=== PATIENT | male | born 1935 | race Caucasian/White ===

== ENCOUNTER 2018-01-30 18:11 | Inpatient (IN) | payer MEDICARE, BC ==
[~2018-01-30] VITALS: Ht 172.7 cm; Wt 86.1 kg
[~2018-01-30 18:11] MED LIST: GLYCOPYRROLATE 1 MG/5 ML SYRINGE IV PUSH ONE; LABETALOL HCL 100 MG/20 ML VIAL IV ONE; LACTATED RINGER'S 1000 ML INJ 2,000 ML IV ONE; PHENYLEPH/NS 1000 MCG/10 ML SYR IV ONE; PROPOFOL 200 MG/20 ML AMP IV ONE; ROCURONIUM INJ 50 MG/5 ML SYRINGE IV PUSH ONE; SODIUM CHLOR 0.9% 1000 ML INJ 2,000 ML IV ONE; SUCCINYLCHOLINE CHLORIDE 200 MG/10 ML VIAL IV ONE; ceFAZolin INJ 1,000 MG VIAL IV ONE; ePHEDrine/NS 25 MG/5 ML SYRINGE IV ONE; hydrALAZINE HCL 20 MG/ML VIAL IV ONE
--- NOTE | 2018-01-30 18:42 | MB ---
cc: Steven Baum MD DATE: 01/30/2018 HISTORY OF PRESENT ILLNESS: Julito Ramirez 82-year-old man with a history of hypertension, hypercholesterolemia, atrial fibrillation, chronic renal insufficiency, hypothyroid, CHF, a TIA 7 years ago, who about 4 hours ago had the onset of weakness on the right side and aphasia. He was brought over to [facility] and I got a call from [facility] from the doctor and also from the son. The doctor had read to us that there was a M1 M2 clot on the left. There was a matched deficit on the perfusion. The blood pressure was approximately 160/80. I did talk with Dr. Bryan and several other physicians here in the radiology department about the case, and I also talked to the son and told him that the patient's deficits sounded very severe and this would be a salvage procedure with considering also his INR was 1.8, he could have bleeding and there is a very small chance of any improvement from pulling the clot out. However, the son and family wanted to go with the procedure versus just having the patient go up to a room and not try to have anything done. I discussed this also with the radiologist telecommunications engineer for intervention care at [place]. NEUROLOGIC EXAMINATION: I did examine him in the hallway. He is obviously aphasic. He could just barely say hello. He is severely dysarthric. He could not say goodbye, not follow any commands. His eyes are driven over to the left. Appears to have a right homonymous hemianopsia. He has got a severe right facial droop. He has got increased tone on the right upper extremity, unable to move it. A 0-1/5. Right lower extremity withdrew minimally to Babinski's and the right toes up. The left was equivocal. He moved the left leg somewhat. He is awake. His pupils are equal. IMPRESSION: Left middle cerebral artery infarct. I did notify the son, Julito Ramirez Junior, that this was a salvage procedure and the patient was a high risk to have bleeding from the procedure to pull the clot out, but that is something we could do on a compassionate basis considering his severe deficit and he wanted to go ahead and do that, so he is up in the angio suite now. MD CLAUDIA Rodriguez/ESSENCE , 05:27 PM , 06:40 PM
[2018-01-30] MEDS ORDERED: HEPARIN SODIUM - SQ 10,000 UNITS/ML VIAL ONE ×2 (18:48→19:22)
[2018-01-30] MEDS ORDERED: THROMBIN (TOPICAL) 5,000 UNIT VIAL ONE (18:49)
[2018-01-30] MEDS ORDERED: PROTAMINE SULFATE 50 MG/5 ML VIAL ONE (18:49)
[2018-01-30] MEDS ORDERED: GELFOAM SIZE 100 ONE (18:49)
[2018-01-30] MEDS ORDERED: HEPARIN SODIUM - IV 10,000 UNITS/10 ML VIAL ONE (19:34)
[2018-01-30 19:39] LABS: HEMATOCRIT 29.6 % (39.0-51.0)
[2018-01-30] MEDS ORDERED: IODIXANOL 320 MG/ML 50 ML VIAL (for RAD SPEC) I-ARTERIAL ONE (19:42)
[2018-01-30 19:52] LABS: INTERNATIONAL NORMALIZED RATIO 2.3 RATIO; PROTHROMBIN TIME - PATIENT 23.4 SEC (9.8-11.6)
[2018-01-30 20:02] LABS: BICARBONATE 26.3 MEQ/L (21.0-32.0); CALCIUM 6.9 MG/DL (8.5-10.1); CREATININE 0.8 MG/DL (0.60-1.30)
[2018-01-30 20:22] VITALS: O2SAT 100
[2018-01-30] MEDS ORDERED: MIDAZOLAM HCL 2 MG/2 ML VIAL ONE (20:32)
[2018-01-30] MEDS ORDERED: DO NOT ADM ANY ANTICOAGULANT DRUGS PRN (20:45)
[2018-01-30 20:51] LABS: CALCIUM-PROTEIN CORRECTED 7.9 MG/DL (8.5-10.1); TOTAL PROTEIN 5.1 GM/DL (6.4-8.2)
--- NOTE | 2018-01-30 21:55 | HHI.HP ---
[facility] Service Critical Care Medicine Primary Care Physician No Primary Care Physician Admission Diagnosis Diagnosis: (1) Acute ischemic stroke Diagnosis: Principal (2) Respiratory failure, acute Diagnosis: Secondary (3) Common femoral artery injury Diagnosis: Secondary (4) HTN (hypertension) Diagnosis: Secondary (5) HLD (hyperlipidemia) Diagnosis: Secondary (6) Diabetes mellitus Diagnosis: Secondary (7) Atrial fibrillation Diagnosis: Secondary (8) Warfarin anticoagulation Diagnosis: Secondary (9) Sleep apnea Diagnosis: Secondary (10) CKD (chronic kidney disease) stage 4, GFR 15-29 ml/min Diagnosis: Secondary (11) Hypothyroid (12) Gout Diagnosis: Secondary (13) Chronic diastolic (congestive) heart failure Diagnosis: Secondary Travel History International Travel<30 Days: No Contact w/Intl Traveler <30 Da: No Traveled to Known Affected Are: No History of Present Illness 82-year-old gentleman with past medical history of chronic atrial fibrillation on anticoagulation with warfarin, hypertension, hyperlipidemia, prior TIA who was transferred from [facility] due to acute stroke. His had spoken with him around 12:30 on 01/29. When she returned home at 1:30 he was having difficulty speaking and right hemiplegia. He presented to [facility] with right facial droop, right hemiplegia, leftward gaze, nonverbal. CT brain demonstrated hyperdense left M1 and M2 segments. He was not a candidate for systemic TPA due to INR of 1.8 at outside hospital. CTA demonstrated thromboembolism of M1 and M2 segments. CT perfusion demonstrated large acute left MCA infarct without surrounding ischemic penumbra. Consultation was made with neurology at [facility] who recommended medical management. Family requested aggressive therapy and case was discussed with Dr. Baum and neuroradiology and patient was transferred to [facility] where he underwent thrombectomy by Dr. Shelby as family was accepting of increased risk of hemorrhage. There was difficulty achieving hemostasis at R groin site so he was taken emergently to OR where he underwent repair of R femoral artery by Dr. Ayala. He was intubated in specials by Dr. Ames. Intraoperatively he received 800 crystalloid, EBL 450 mL, UOP was 700. Dr. Ayala discussed with Dr. Baum postoperatively and [facility] has been called for admission. Patient remains intubated. Family indicates he made some initial improvement between the onset of symptoms and leaving the outside hospital, able to produce some garbled speech and say "I love you". They also state that slight movement of right side is an improvement. Daughter states INR Was recently subtherapeutic at 1.4 on 01/22. Review of Systems ROS Limitations: Intubated Past Family Social History Allergies: Coded Allergies: allopurinol (Verified Allergy, Severe, Irritation, 01/31/18) SKIN IRRITATION AND SLOUGHING. Past Medical History Hypertension Hyperlipidemia Chronic CHF with reportedly preserved EF Hypothyroidism Chronic atrial fibrillation Chronic kidney disease (Stage IV per daughter) Sensoroneural hearing loss TIA in 2009 Small traumatic R Pneumothorax 2011, treated without chest tube Sleep apnea uses CPAP at home Restless leg syndrome (Dr. 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 Family History Dad had a stroke in his mid to late 80s and a couple years later Mother had hypertension and old age Social History He previously smoked cigars in his 20s and 30s but has not smoked since then. He is to drink glasses of wine occasionally but nothing to drink in the last year due to issues with gout No illicit drug use His mobility is impaired at times due to gallops and he will sometimes uses a walker, cane, E walk unassisted He started physical therapy yesterday Physical Exam Vital Signs Vital Signs Date Time Temp Pulse Resp B/P (MAP) Pulse Ox O2 Delivery O2 Flow Rate FiO2 01/30/18 20:18 96.3 64 10 130/60 (83) 100 Ambu Bag 50 Mechanical Ventilator Physical Exam GENERAL: Well-nourished, well-developed patient who is orotracheally intubated. He is evaluated in PACU. He is not on any continuous sedation. SKIN: Warm and dry. VASC: L radial art line in place with distal perfusion intact. Dressing in place right groin with some mild groin edema but no palpable hematoma. DESHAWN drain in place with dark tenderness output. HEAD: Atraumatic. Normocephalic. EYES: Pupils equal and round with pupils 6 mm and sluggishly reactive to 5 mm bilaterally.. No scleral icterus. No injection or drainage. ENT: No nasal bleeding or discharge. Mucous membranes pink and moist. Orotracheally intubated with 70 endotracheal tube. NECK: Trachea midline. No JVD. CARDIOVASCULAR: Irregularly irregular with rate in the 70s, A. fib on the monitor. No murmurs rubs or gallops. RESPIRATORY: Orotracheally intubated. CTAB. GASTROINTESTINAL: Abdomen soft, non-tender, nondistended. Bowel sounds present. MUSCULOSKELETAL: Extremities without clubbing, cyanosis. NEUROLOGICAL: Awake, eyes open, L gaze preference. Squeezes with L hand but does not release to command or perform "thumbs up". Spontaneously moving LLE with at least 3/5 strength. RUE with weak withdrawal to noxious stimuli. Strength 2/5 RLE. Babinski upgoing on the right. Laboratory Laboratory Tests Test 01/30/18 19:11 01/30/18 19:15 Hemoglobin 10.0 Hematocrit 29.6 Prothrombin Time 23.4 Prothromb Time International Ratio 2.3 Activated Partial Thromboplast Time 47.6 Fibrinogen 242 Blood Urea Nitrogen 22 Creatinine 0.80 Random Glucose 120 Total Protein 5.1 Calcium Level 6.9 Sodium Level 140 Potassium Level 3.3 Chloride Level 105 Carbon Dioxide Level 26.3 Anion Gap 9 Estimat Glomerular Filtration Rate 92 Protein Corrected Calcium 7.9 Blood Gas Puncture Site ART LINE Blood Gas Patient Temperature 98.6 Blood Gas HCO3 25 Blood Gas Base Excess 0.1 Blood Gas Oxygen Saturation 98 Arterial Blood pH 7.35 Arterial Blood Partial Pressure CO2 47 Arterial Blood Partial Pressure O2 340 Arterial Blood Oxygen Content 14.8 Arterial Blood Carboxyhemoglobin 0.7 Arterial Blood Methemoglobin 1.1 Blood Gas Hemoglobin 10.1 Oxygen Delivery Device VENTILATOR Blood Gas Ventilator Setting OR SETTING Blood Gas Inspired Oxygen 100 Result Diagram: 01/30/18191001/30/181910 Caprini VTE Risk Assessment Caprini VTE Risk Assessment: Mod/High Risk (score >= 2) VTE Pharm Contraindication: Coagulopathy,INR elevated Caprini Risk Assessment Model Point Value = 1 Point Value = 2 Point Value = 3 Point Value = 5 Age 41-60 Minor surgery BMI > 25 kg/m2 Swollen legs Varicose veins or History of unexplained or recurrent spontaneous Oral contraceptives or hormone replacement Sepsis (< 1 month) Serious lung disease, including pneumonia (< 1 month) Abnormal pulmonary function Acute myocardial infarction Congestive heart failure (< 1 month) History of inflammatory bowel disease Medical patient at bed rest Age 61-74 Arthroscopic surgery Major open surgery (> 45 min) Laparoscopic surgery (> 45 min) Malignancy Confined to bed (> 72 hours) Immobilizing plaster cast Central venous access Age >= 75 History of VTE Family history of VTE Factor V Leiden Prothrombin [id number] Lupus anticoagulant Anticardiolipin antibodies Elevated serum homocysteine Heparin-induced thrombocytopenia Other congenital or acquired thrombophilia Stroke (< 1 month) Elective arthroplasty Hip, pelvis, or leg fracture Acute spinal cord injury (< 1 month) Prophylaxis Regimen Total Risk Factor Score Risk Level Prophylaxis Regimen 0-1 Low Early ambulation 2 Moderate Order ONE of the following: *Sequential Compression Device (SCD) *Heparin 5000 units SQ BID 3-4 Higher Order ONE of the following medications: *Heparin 5000 units SQ TID *Enoxaparin/Lovenox 40 mg SQ daily (WT < 150 kg, CrCl > 30 mL/min) *Enoxaparin/Lovenox 30 mg SQ daily (WT < 150 kg, CrCl > 10-29 mL/min) *Enoxaparin/Lovenox 30 mg SQ BID (WT < 150 kg, CrCl > 30 mL/min) AND/OR *Sequential Compression Device (SCD) 5 or more Highest Order ONE of the following medications: *Heparin 5000 units SQ TID (Preferred with Epidurals) *Enoxaparin/Lovenox 40 mg SQ daily (WT < 150 kg, CrCl > 30 mL/min) *Enoxaparin/Lovenox 30 mg SQ daily (WT < 150 kg, CrCl > 10-29 mL/min) *Enoxaparin/Lovenox 30 mg SQ BID (WT < 150 kg, CrCl > 30 mL/min) AND *Sequential Compression Device (SCD) Assessment and Plan Problem List: (1) Respiratory failure, acute ICD Code: J96.00 - Acute respiratory failure, unspecified whether with hypoxia or hypercapnia Status: Acute (2) Common femoral artery injury ICD Code: S75.009A - Unspecified injury of femoral artery, unspecified leg, initial encounter Status: Acute (3) Acute ischemic stroke ICD Code: I63.9 - Cerebral infarction, unspecified Status: Acute (4) Diabetes mellitus ICD Code: E11.9 - Type 2 diabetes mellitus without complications Status: Chronic (5) HTN (hypertension) ICD Code: I10 - Essential (primary) hypertension (6) HLD (hyperlipidemia) ICD Code: E78.5 - Hyperlipidemia, unspecified (7) Atrial fibrillation ICD Code: I48.91 - Unspecified atrial fibrillation Status: Chronic (8) Warfarin anticoagulation ICD Code: Z79.01 - group home (current) use of anticoagulants Status: Chronic (9) Sleep apnea ICD Code: G47.30 - Sleep apnea, unspecified Status: Chronic (10) CKD (chronic kidney disease) stage 4, GFR 15-29 ml/min ICD Code: N18.4 - Chronic kidney disease, stage 4 (severe) Status: Chronic (11) Gout ICD Code: M10.9 - Gout, unspecified Status: Chronic (12) Hypothyroid ICD Code: E03.9 - Hypothyroidism, unspecified Status: Chronic (13) Chronic diastolic (congestive) heart failure ICD Code: I50.32 - Chronic diastolic (congestive) heart failure Status: Chronic Assessment and Plan NEURO: Acute ischemic stroke, L MCA Sensorineural hearing loss History of TIA in 2009 Not candidate for systemic TPA due to INR 1.8. S/p thrombectomy 01/30/18. Will obtain follow-up imaging. NEurocheck Hemodynamic monitoring Neurology consultation. Dr. Baum to follow. RESP: Acute respiratory failure Sleep apnea on CPAP at home Change to PRVC. Ventilator Bundle. Appears he may be able to protect his airway for trial of extubation but would perform after MRI. CV: Hypertension Hyperlipidemia Chronic atrial fibrillation on chronic anticoagulation with warfarin Chronic heart failure with preserved ejection fraction Hold antihypertensive medications. Right IJ central venous line placed and will use Yg-Synephrine to maintain systolic blood pressure 160-180 to facilitate cerebral perfusion. Dr. Ayala discussed with Dr. Baum who recommended this target. S/p R femoral artery repair 01/30. GI: Insert Orogastric tube and placed a lower intermittent wall suction. Initiate enteral feeds tomorrow if not extubating. FEN/RENAL: Chronic kidney disease stage IV Monitor intake and output via Varela. Monitor electrolytes. Replace as indicated. ID: Monitor for signs and symptoms of infection HEME: On chronic anti-coagulation with warfarin Hold warfarin for now. INR at OSH was 1.8, now 2.3. Eventually will resume but will monitor clinical course and imaging for evidence of hemorrhagic conversion. ENDO: Hypothyroidism Check TSH. Resume synthroid. MSK: Gout Resume appropriate meds. Med rec pending. PROPH: SCDs for DVT prophylaxis. His anticoagulated on warfarin with INR 2.3. Lansoprazole for stress ulcer prophylaxis. ACCESS: Left radial art line placed in OR 01/30/18. Right IJ central venous line placed 01/31/18 #1. Level 3 H and P. Problem Qualifiers (1) HTN (hypertension): Qualified Codes: I10 - Essential (primary) hypertension Eloise Benz MD Jan 30, 2018 21:54
--- NOTE | 2018-01-30 22:46 | MP ---
cc: Anusha Ayala MD DATE OF OPERATION: 01/30/2018 PREOPERATIVE DIAGNOSES: Status post stroke and evacuation of a middle cerebral artery clot, iatrogenic laceration of the left common femoral artery and bleeding. POSTOPERATIVE DIAGNOSES: Status post stroke and evacuation of a middle cerebral artery clot, iatrogenic laceration of the left common femoral artery and bleeding. OPERATIVE PROCEDURE: Preperitoneal approach and isolation of external iliac artery and repair of common femoral artery, evacuation of retroperitoneal hematoma and control of hemorrhage. SURGEON: Anusha Ayala MD ANESTHESIA: General. ESTIMATED BLOOD LOSS: 100 mL intraoperatively and about 400 mL preoperatively. INDICATIONS FOR PROCEDURE: This 82-year-old gentleman underwent interventional radiology procedure and evacuation of the clot of the middle cerebral artery. The patient did well and on closure of a femoral artery the Angio-Seal device misfired and this caused loss of control of the femoral artery. Pressure was held immediately and Dr. Shelby called me to assist. It should be noted that misfire or kinking of the wire with percutaneous closure devices is relatively common occurrence and it is fixable with relatively simple approach. DESCRIPTION OF PROCEDURE: The patient was transferred immediately to the operating room and prepped while holding the pressure onto the vessel. Incision was made in the oblique fashion reaching into the retroperitoneum and external iliac artery is isolated at the level of the inguinal ligament as this crosses over. This is done through a preperitoneal approach. Once this was done, the common femoral artery is isolated more distally with sharp dissection and immediately opening was found. This one is oversewn with some 5-0 Prolene interrupted stitches and this controlled the bleeding. The patient has a fairly large preperitoneal hematoma due to his body habitus and bleeding. This one is evacuated, area washed out. A 10 flat DESHAWN placed and the incision closed in layers with 0 Vicryl and 4-0 Monocryl. The patient tolerated the procedure well. At the end of the procedure patient has excellent distal pulses and will have no long-term ill effects from this episode. Anusha Ayala MD SJ/rt , 10:06 PM , 10:46 PM REBEKAH
[2018-01-30] MEDS: SODIUM CHLOR 0.9% 1000 ML INJ 1,000 ML IV SCH (23:01)
[2018-01-30] MEDS ORDERED: MISCELLANEOUS NURSING INFORMATION XX SCH (23:15)
[2018-01-30] MEDS ORDERED: SENNOSIDES 8.6 MG TAB PO PRN (23:15)
[2018-01-30] MEDS ORDERED: SODIUM CHLORIDE 0.9% FLUSH 10 ML FLUSH IV FLUSH PRN (23:15)
[2018-01-30] MEDS ORDERED: LACTULOSE SYRUP 20 GM/30 ML CUP PO PRN (23:15)
[2018-01-30] MEDS ORDERED: CHLORHEXIDINE GLUCONATE 2 % 1 PACK (2 CLOTHS) TOP PRN (23:15)
[2018-01-30] MEDS ORDERED: MAGNESIUM HYDROXIDE SUSP 30 ML CUP PO PRN (23:15)
[2018-01-30] MEDS ORDERED: BISACODYL 10 MG SUPP RECTAL PRN (23:15)
[2018-01-30] MEDS ORDERED: RESP: ALBUTEROL 2.5 MG/3 ML NEB (PRN) INH (23:15)
[2018-01-30 23:24] VITALS: O2SAT 100
[2018-01-30] MEDS: ONDANSETRON HCL 4 MG/2 ML VIAL IV PUSH PRN (23:34)
[2018-01-31] VITALS (14 sets, daily range): BP systolic 165–176; BP diastolic 50–72; PULSE 53–76; RESP 13–16; TEMP 98.6–99.4; O2SAT 98–100
[2018-01-31] MEDS ORDERED: NOREPINEPHRINE 4 MG/4 ML AMP ONE (00:42)
[2018-01-31] MEDS ORDERED: PHENYLEPHRINE HCL 10 MG/ML VIAL ONE (01:11)
[2018-01-31] MEDS ORDERED: POTASSIUM CHLOR 20 MEQ PREMIX 100 ML IV PRN (01:15)
[2018-01-31] MEDS ORDERED: SODIUM PHOSPHATE INJ 30 MMOL in SODIUM CHLOR 0.9% 250 ML INJ 240 ML IV PRN (01:15)
[2018-01-31] MEDS ORDERED: POTASSIUM CHLORIDE 25 MEQ EFFERVESCENT TAB PO PRN (01:15)
[2018-01-31] MEDS ORDERED: MAGNESIUM OXIDE 400 MG TAB PO PRN (01:15)
[2018-01-31] MEDS ORDERED: MAGNESIUM SULFATE INJ 4 GM in SODIUM CHLORIDE 0.9% INJ 92 ML IV PRN (01:15)
[2018-01-31] MEDS ORDERED: MAGNESIUM SULFATE INJ 2 GM in SODIUM CHLORIDE 0.9% INJ 96 ML IV PRN (01:15)
[2018-01-31] MEDS ORDERED: TERBUTALINE INJ 1 MG/ML AMP SQ PRN (01:15)
[2018-01-31] MEDS ORDERED: POTASSIUM PHOSPHATE MONOBASIC 500 MG TAB PO PRN (01:15)
[2018-01-31] MEDS ORDERED: POTASSIUM PHOSPHATE MONOBASIC 500 MG TAB PO/TUBE PRN (01:15)
[2018-01-31] MEDS ORDERED: POTASSIUM CHLOR 40 MEQ PREMIX 100 ML IV PRN ×2 (01:15)
[2018-01-31] MEDS ORDERED: PHENYLEPHRINE INJ 160 MG in DEXTROSE 5% IN WATE 500 ML INJ 484 ML IV PRN ×4 (01:15→13:00)
[2018-01-31] MEDS ORDERED: POTASSIUM PHOSPHATE INJ 30 MMOL in SODIUM CHLOR 0.9% 250 ML INJ 250 ML IV PRN (01:15)
--- NOTE | 2018-01-31 01:19 | PD.PROCEDR ---
Procedure Note Procedure DATE: 01/31/18 CENTRAL LINE PLACEMENT: Right internal jugular vein. INDICATION: Central venous access CONSENT Informed consent for procedure was obtained from patient's after discussion of risks, benefits, alternatives with her and multiple other family members. DESCRIPTION OF THE PROCEDURE Internal jugular site was chosen as patient is anticoagulated. The patient was placed in supine position, mild Trendelenburg. The skin was cleansed with Chloraprep 3. Additional barrier precautions included large sterile drape, sterile gloves, sterile gown, face mask, and hat. 1 % lidocaine was used for local anesthesia. Under direct ultrasound guidance and on single attempt, the vein was accessed with an introducer needle. The guide wire was advanced and the tract was dilated. Using Seldinger technique a 7 Belarusian 20 cm antimicrobial coated triple-lumen catheter was advanced to a depth of 18 centimeters. The guide wire was removed. All ports had good return of dark venous blood and flushed easily with saline. The central line was secured with Stat-lock. A sterile dressing with antibiotic disc was applied. ESTIMATED BLOOD LOSS: Minimal COMPLICATIONS: No apparent complications. STAT chest x-ray is pending Eloise Benz MD Jan 31, 2018 01:19
--- NOTE | 2018-01-31 02:03 | RADRPT ---
EXAM DATE/TIME: 01/31/2018 02:34 [place] COMPARISON: No previous studies available for comparison. INDICATIONS : Central line palcement MEDICAL HISTORY : None. SURGICAL HISTORY : None. ENCOUNTER: Initial ACUITY: 1 day PAIN SCORE: Non-responsive. LOCATION: Bilateral chest FINDINGS: Single AP view of the chest. Endotracheal tube is in place with the tip 7 cm above the fawn. Nasoga stric tube is in place with the side-port in the stomach. Right IJ central venous catheter is in plac e with the tip at the cavoatrial junction. Cardiac silhouette is mildly enlarged. Confluent opacity a t the right lung base indicating consolidation versus atelectasis. Mild patchy left lung base opacity . Blunting of the left costophrenic sulcus indicating small pleural effusion versus scarring. No evid ence of pneumothorax. CONCLUSION: 1. Endotracheal tube, nasogastric tube, right IJ central venous catheter in place. 2. Right lower lung consolidation versus atelectasis. 3. Patchy atelectasis left lung base. 4. Small left pleural effusion versus scarring. Jorge Beck MD on January 31, 2018 at 1:59 Board Certified Radiologist. This report was verified electronically.
[2018-01-31] MEDS: PHENYLEPHRINE HCL 160 MG/D5W 484 ML ADMIX IV PRN ×2 (02:30)
[2018-01-31] MEDS: POTASSIUM CHLOR 20 MEQ PREMIX 100 ML IV PRN ×2 (02:39→04:39)
[2018-01-31] MEDS: RESP: ALBUTEROL 2.5 MG/IPRATROPIUM 0.5 MG NEB (SCH) INH ×3 (03:41→21:32)
[2018-01-31] MEDS: CHLORHEXIDINE GLUCONATE 2 % 1 PACK (2 CLOTHS) TOP SCH (04:00)
[2018-01-31 08:21] LABS: AUTOMATED NEUTROPHIL # 12.6 TH/MM3 (1.8-7.7); BASOPHIL % 0.1 % (0.0-2.0); HEMATOCRIT 29.4 % (39.0-51.0); HEMOGLOBIN 9.9 GM/DL (13.0-17.0); LYMPH % 2.2 % (9.0-44.0); LYMPHOCYTE # 0.3 TH/MM3 (1.0-4.8); MEAN CELL VOLUME 85.4 FL (80.0-100.0); MEAN CORPUSCULAR HEMOGLOBIN 28.8 PG (27.0-34.0); MEAN CORPUSCULAR HGB CONC 33.7 % (32.0-36.0); MEAN PLATELET VOLUME 7.9 FL (7.0-11.0); MONO % 6.5 % (0.0-8.0); MONOCYTE # 0.9 TH/MM3 (0-0.9); NEUT % 91.2 % (16.0-70.0); PLATELET COUNT 198 TH/MM3 (150-450); RED BLOOD COUNT 3.44 MIL/MM3 (4.50-5.90); RED CELL DISTRIBUTION WIDTH 16.9 % (11.6-17.2); WHITE BLOOD COUNT 13.9 TH/MM3 (4.0-11.0)
[2018-01-31 08:22] LABS: INTERNATIONAL NORMALIZED RATIO 2.2 RATIO; PROTHROMBIN TIME - PATIENT 22.4 SEC (9.8-11.6)
[2018-01-31 08:48] LABS: ALBUMIN 2.5 GM/DL (3.4-5.0); ALT (GPT) 17 U/L (12-78); AST (GOT) 15 U/L (15-37); BICARBONATE 26.6 MEQ/L (21.0-32.0); BLOOD UREA NITROGEN 22 MG/DL (7-18); CALCIUM 7.5 MG/DL (8.5-10.1); CHLORIDE 106 MEQ/L (98-107); CREATININE 1.22 MG/DL (0.60-1.30); GLOMERULAR FILTRATION RATE 57 ML/MIN (>89); GLUCOSE,RANDOM 179 MG/DL (74-106); PHOSPHORUS 1.5 MG/DL (2.5-4.9); SODIUM (NA) 142 MEQ/L (136-145)
[2018-01-31 08:49] LABS: ALKALINE PHOSPHATASE 73 U/L (45-117); TOTAL BILIRUBIN ADULT 0.5 MG/DL (0.2-1.0); TOTAL PROTEIN 5.7 GM/DL (6.4-8.2)
[2018-01-31] MEDS: SODIUM CHLORIDE 0.9% FLUSH 10 ML FLUSH IV FLUSH SCH ×2 (09:00→20:26)
[2018-01-31] MEDS: LANSOPRAZOLE SOLUTAB 30 MG TAB G-TUBE SCH (10:28)
[2018-01-31] MEDS: DOCUSATE SODIUM 50 MG/SENNA 8.6 MG TAB PO SCH ×2 (10:29→20:26)
[2018-01-31] MEDS ORDERED: PROPOFOL 500 MG/50 ML INJ 50 ML ONE (10:47)
[2018-01-31] MEDS: SODIUM CHLOR 0.9% 1000 ML INJ 1,000 ML IV SCH ×2 (10:56→22:51)
--- NOTE | 2018-01-31 11:02 | HHI.CCPN ---
Subjective Remarks/Hospital Course 82-year-old gentleman with past medical history of chronic atrial fibrillation on anticoagulation with warfarin, hypertension, hyperlipidemia, prior TIA who was transferred from [facility] due to acute stroke. His had spoken with him around 12:30 on 01/29. When she returned home at 1:30 he was having difficulty speaking and right hemiplegia. He presented to [facility] with right facial droop, right hemiplegia, leftward gaze, nonverbal. CT brain demonstrated hyperdense left M1 and M2 segments. He was not a candidate for systemic TPA due to INR of 1.8 at outside hospital. CTA demonstrated thromboembolism of M1 and M2 segments. CT perfusion demonstrated large acute left MCA infarct without surrounding ischemic penumbra. Consultation was made with neurology at [facility] who recommended medical management. Family requested aggressive therapy and case was discussed with Dr. Baum and neuroradiology and patient was transferred to [place] where he underwent thrombectomy by Dr. Shelby as family was accepting of increased risk of hemorrhage. There was difficulty achieving hemostasis at R groin site so he was taken emergently to OR where he underwent repair of R femoral artery by Dr. Ayala. He was intubated in specials by Dr. Ames. Intraoperatively he received 800 crystalloid, EBL 450 mL, UOP was 700. Dr. Ayala discussed with Dr. Baum postoperatively and [facility] has been called for admission. Patient remains intubated. 0407: Appears more alert this morning. We will leave intubated because he will require sedation for MRI. Try to extubate after. Objective Vital Signs Date Time Temp Pulse Resp B/P (MAP) Pulse Ox O2 Delivery O2 Flow Rate FiO2 01/31/18 10:49 98 50 01/31/18 07:01 80 20 177/75 (109) Mechanical Ventilator 165/53 (90) 01/31/18 05:00 99.5 Intake and Output 01/31/18 01/31/18 01/31/18 07:59 15:59 23:59 Intake Total 568 ml Output Total 1480 ml Balance -912 ml Result Diagram: 01/31/18 0707 01/31/18 0707 Other Results Laboratory Tests Test 01/30/18 19:15 01/30/18 23:11 Blood Gas Puncture Site ART LINE ART LINE Blood Gas Patient Temperature 98.6 98.6 Blood Gas HCO3 25 mmol/L (22-26) 24 mmol/L (22-26) Blood Gas Base Excess 0.1 mmol/L (-2-2) 0.0 mmol/L (-2-2) Blood Gas Oxygen Saturation 98 % (90-100) 97 % (90-100) Arterial Blood pH 7.35 (7.380-7.420) 7.41 (7.380-7.420) Arterial Blood Partial Pressure CO2 47 mmHg (38-42) 38 mmHg (38-42) Arterial Blood Partial Pressure O2 340 mmHg (61-120) 173 mmHg (61-120) Arterial Blood Oxygen Content 14.8 Vol % (12.0-20.0) 13.9 Vol % (12.0-20.0) Arterial Blood Carboxyhemoglobin 0.7 % (0-4) 0.8 % (0-4) Arterial Blood Methemoglobin 1.1 % (0-2) 1.2 % (0-2) Blood Gas Hemoglobin 10.1 G/DL (12.0-16.0) 9.9 G/DL (12.0-16.0) Oxygen Delivery Device VENTILATOR VENTILATOR Blood Gas Ventilator Setting OR SETTING SEE COMMENT Blood Gas Inspired Oxygen 100 % 50 % Objective Remarks GENERAL: Well-nourished, well-developed patient who is orotracheally intubated. He is evaluated in PACU. He is not on any continuous sedation. SKIN: Warm and dry. VASC: L radial art line in place with distal perfusion intact. Dressing in place right groin with some mild groin edema but no palpable hematoma. DESHAWN drain in place with dark tenderness output. HEAD: Atraumatic. Normocephalic. EYES: Pupils equal and round with pupils 6 mm and sluggishly reactive to 5 mm bilaterally.. No scleral icterus. No injection or drainage. ENT: No nasal bleeding or discharge. Mucous membranes pink and moist. Orotracheally intubated with 70 endotracheal tube. NECK: Trachea midline. No JVD. CARDIOVASCULAR: Irregularly irregular with rate in the 70s, A. fib on the monitor. No murmurs rubs or gallops. RESPIRATORY: Orotracheally intubated. CTAB. GASTROINTESTINAL: Abdomen soft, non-tender, nondistended. Bowel sounds present. MUSCULOSKELETAL: Extremities without clubbing, cyanosis. NEUROLOGICAL: Awake, eyes open. A/P Assessment and Plan NEURO: Acute ischemic stroke Sensorineural hearing loss History of TIA in [address] Baum to follow. MRI now. RESP: Acute respiratory failure Sleep apnea on CPAP at home CV: Hypertension Hyperlipidemia Chronic atrial fibrillation on chronic anticoagulation with warfarin Chronic heart failure with preserved ejection fraction GI: Insert Orogastric tube to lower intermittent wall suction. Initiate enteral feeds in a.m. if not extubating. FEN/RENAL: Chronic kidney disease stage IV Monitor intake and output via Varela. Monitor electrolytes. Replace as indicated. ID: Monitor for signs and symptoms of infection HEME: On chronic anti-coagulation with warfarin ENDO: Hypothyroidism MSK: Gout PROPH: SCDs for DVT prophylaxis. His anticoagulated on warfarin with INR 2.3. ACCESS: Left radial art line placed in OR 01/30/18. Overall impression: Patient has sustained an acute stroke followed shortly by cerebral thrombectomy. He remains critically ill but improved. Unable to wean from ventilator. MRI pending. Critical Care 38 mins Yao Lopez MD Jan 31, 2018 11:02
[2018-01-31] MEDS: PROPOFOL 1000 MG/100 ML INJ 100 ML IV PRN (12:00)
--- NOTE | 2018-01-31 12:20 | RADRPT ---
EXAM DATE/TIME: 01/31/2018 11:29 [facility] COMPARISON: No previous studies available for comparison. INDICATIONS : CVA. MEDICAL HISTORY : Chronic obstructive pulmonary disease. Congestive heart failure. Hypertension. Chronic kidney disease . SURGICAL HISTORY : Thrombectomy ENCOUNTER: Initial ACUITY: 1 day PAIN SCORE: 0/10 LOCATION: cranial TECHNIQUE: Multiplanar, multisequence MRI of the brain was performed without contrast. FINDINGS: CEREBRUM: There are multiple areas of restricted diffusion consistent with acute infarct identified within the left temporal lobe, left external capsule, left caudate, left occipital lobe and left mid and posteri or parietal lobe. These areas involve the barrera matter. There is prominence of the ventricles bilatera lly. There is mild sulcal effacement identified within the left parietal-occipital lobe. No evidence of midline shift. The areas of infarct within the left parietal lobe are associated with multiple are as of focal hypointensity on the gradient echo imaging consistent with hemosiderin. WHITE MATTER: There is periventricular white matter hyper intensity. POSTERIOR FOSSA: The cerebellum and brainstem are intact. The 4th ventricle is midline. The cerebellopontine angle is unremarkable. The cerebellar tonsils are normal in position. DIFFUSION IMAGING: No focal areas of restricted diffusion are seen. No evidence of acute infarction. EXTRACRANIAL: The visualized portions of the orbits and paranasal sinuses are unremarkable. CONCLUSION: Multiple areas of acute infarct as noted above. There is mild sulcal effacement identified in the reg ion of the left parietal occipital region. No evidence of midline shift.. Negra Lobo MD on January 31, 2018 at 12:11 Board Certified Radiologist. This report was verified electronically.
--- NOTE | 2018-01-31 13:26 | HHI.PR ---
Subjective Remarks SP CLOT REMOVAL Objective Vital Signs Date Time Temp Pulse Resp B/P (MAP) Pulse Ox O2 Delivery O2 Flow Rate FiO2 01/31/18 12:31 100 100 01/31/18 10:49 98 50 01/31/18 08:45 100 Mechanical Ventilator 50 01/31/18 07:45 100 100 01/31/18 07:01 80 20 177/75 (109) 100 Mechanical Ventilator 50 165/53 (90) 01/31/18 06:45 69 17 152/69 (96) 100 Mechanical Ventilator 50 153/51 (85) 01/31/18 06:30 66 17 149/65 (93) 100 Mechanical Ventilator 50 150/47 (81) 01/31/18 06:15 75 17 168/72 (104) 100 Mechanical Ventilator 50 150/47 (81) 01/31/18 06:00 70 18 159/70 (99) 100 Mechanical Ventilator 50 168/52 (90) 01/31/18 05:45 76 18 146/67 (93) 100 Mechanical Ventilator 50 161/48 (85) 01/31/18 05:30 67 16 136/65 (88) 100 Mechanical Ventilator 50 148/43 (78) 01/31/18 05:15 63 17 131/59 (83) 100 Mechanical Ventilator 50 140/44 (76) 01/31/18 05:15 63 131/59 01/31/18 05:00 67 155/69 01/31/18 05:00 99.5 67 17 155/69 (97) 100 Mechanical Ventilator 50 160/49 (86) 01/31/18 04:45 83 22 179/76 (110) 100 Mechanical Ventilator 50 180/59 (99) 01/31/18 04:30 69 17 156/68 (97) 100 Mechanical Ventilator 50 162/50 (87) 01/31/18 04:30 69 156/68 01/31/18 04:15 70 17 156/70 (98) 100 Mechanical Ventilator 50 163/70 (101) 01/31/18 04:00 50 01/31/18 04:00 74 16 156/69 (98) 100 Mechanical Ventilator 50 158/78 (104) 01/31/18 03:45 74 17 151/67 (95) 100 Mechanical Ventilator 50 163/52 (89) 01/31/18 03:45 74 151/67 01/31/18 03:33 100 50 01/31/18 03:30 78 16 139/63 (88) 100 Mechanical Ventilator 50 148/51 (83) 01/31/18 03:30 78 139/63 01/31/18 03:15 76 159/70 01/31/18 03:15 76 16 159/70 (99) 100 Mechanical Ventilator 50 144/43 (76) 01/31/18 03:00 74 16 169/75 (106) 100 Mechanical Ventilator 50 169/75 (106) 01/31/18 02:45 81 16 157/73 (101) 100 Mechanical Ventilator 50 154/48 (83) 01/31/18 02:45 81 157/73 01/31/18 02:30 79 158/48 01/31/18 02:30 82 15 186/82 (116) 100 Mechanical Ventilator 50 177/58 (97) 01/31/18 02:15 81 20 182/84 (116) 100 Mechanical Ventilator 50 175/60 (98) 01/31/18 02:00 68 20 147/66 (93) 100 Mechanical Ventilator 50 157/50 (85) 01/31/18 01:45 76 12 158/72 (100) 100 Mechanical Ventilator 50 164/53 (90) 01/31/18 01:30 69 12 153/68 (96) 100 Mechanical Ventilator 50 145/48 (80) 01/31/18 01:15 79 20 150/68 (95) 100 Mechanical Ventilator 50 151/54 (86) 01/31/18 01:11 80 147/67 01/31/18 01:00 84 17 147/67 (93) 100 Mechanical Ventilator 50 137/46 (76) 01/31/18 00:00 50 01/31/18 00:00 70 15 145/66 (92) 100 Mechanical Ventilator 50 147/66 (93) 01/30/18 23:30 75 21 154/69 (97) 100 Mechanical Ventilator 50 163/57 (92) 01/30/18 23:24 100 50 01/30/18 23:00 97.7 01/30/18 23:00 97.7 75 21 168/69 (102) 100 Mechanical Ventilator 50 162/57 (92) 01/30/18 22:30 70 21 163/69 (100) 100 Mechanical Ventilator 50 145/51 (82) 01/30/18 21:45 96.6 62 15 154/49 (84) 100 Mechanical Ventilator 50 01/30/18 21:30 70 20 177/74 (108) 99 Mechanical Ventilator 50 173/58 (96) 01/30/18 21:20 96.3 01/30/18 21:15 69 18 164/70 (101) 100 Mechanical Ventilator 50 168/55 (92) 01/30/18 21:00 77 21 168/76 (106) 100 Mechanical Ventilator 50 185/56 (99) 01/30/18 20:45 65 20 182/72 (108) 100 Mechanical Ventilator 50 172/50 (90) 01/30/18 20:30 73 10 175/81 (112) 100 Mechanical Ventilator 50 181/59 (99) 01/30/18 20:22 100 50 01/30/18 20:20 50 01/30/18 20:18 96.3 64 10 130/60 (83) 100 Ambu Bag 50 Mechanical Ventilator I/O 01/30/18 01/30/18 01/30/18 01/31/18 01/31/18 01/31/18 07:00 15:00 23:00 07:00 15:00 23:00 Intake Total 3800 ml 568 ml Output Total 850 ml 1480 ml Balance 2950 ml -912 ml Intake IV Total 568 ml Other 3800 ml Output Urine Total 700 ml 1200 ml Gastric Drainage Total 250 ml Drainage Total 30 ml Estimated Blood Loss 150 ml Result Diagram: 01/31/18 0707 01/31/18 07 Objective Remarks on vent and some dip awake not following commands pupil= flaccid rue can move the rle some moving left toes equiv bilat to upgoing no rxt threat Assessment and Plan Assessment and Plan imp mod size left mca cva minimal petichial change on mri afib with cva at 1.8 inr i dw son percy and risk of recurrent cva not anticoagulated and risk of bleeding into brain inc on heparin but i feel he is at higher risk of recurrent cva from afib than bleeding into cva he needs to get on coumadin aissatou can he get of vent soon? iv hep started no bolus recheck ct in am Steven Baum MD Jan 31, 2018 13:26
--- NOTE | 2018-01-31 13:59 | RADRPT ---
EXAM DATE/TIME: 01/31/2018 12:03 [facility] COMPARISON: THROMBECTOMY, INTRACRANIAL, January 30, 2018, 16:37. MRI BRAIN W/O CONTRAST, January 31, 2018, 11:29. A NGIOGRAM, CEREBRAL - STROKE, January 30, 2018, 0:00. INDICATIONS : Abnormal prior CT brain. RADIATION DOSE: 47.84 CTDIvol (mGy) MEDICAL HISTORY : Cerebrovascular disease. Cardiovascular disease Hypertension.A-fib SURGICAL HISTORY : None. ENCOUNTER: Initial ACUITY: 1 day PAIN SCALE: Non-responsive LOCATION: cranial TECHNIQUE: Multiple contiguous axial images were obtained of the head. Using automated exposure control and adj ustment of the mA and/or kV according to patient size, radiation dose was kept as low as reasonably a chievable to obtain optimal diagnostic quality images. DICOM format image data is available electro nically for review and comparison. FINDINGS: CEREBRUM: Focal hypodensities consistent with acute infarcts are identified in the left cerebral hemisphere. Th oleksandr are predominantly located within the left parietal lobe. There is no evidence of acute hemorrhage however MRI did demonstrate some mild petechial punctate hemorrhages along the cortical surface. Donovan tricles are mildly enlarged POSTERIOR FOSSA: The cerebellum and brainstem are intact. The 4th ventricle is midline. The cerebellopontine angle i s unremarkable. EXTRACRANIAL: The visualized portion of the orbits is intact. SKULL: The calvaria is intact. No evidence of skull fracture. CONCLUSION: 1. Acute left cerebral infarcts with petechial hemorrhage identified on MRI 2. Mild ventriculomegaly 3. No other acute findings. Alex Bryan MD on January 31, 2018 at 13:49 Board Certified Radiologist. This report was verified electronically.
[2018-01-31] MEDS: HEPARIN-D5W 25,000 U/250 ML 250 ML IV PRN (14:02)
--- NOTE | 2018-01-31 15:10 | PD.CAR.PN ---
CVT Progress Note Subjective/Hospital Course: 01/31/2018 Status post repair of the right femoral artery Incision clean and dry Excellent distal pulses DESHAWN drainage decreased and minimal at this time Patient can be heparinized and anticoagulated in any safely from vascular point Objective: Vital Signs Date Time Temp Pulse Resp B/P (MAP) Pulse Ox O2 Delivery O2 Flow Rate FiO2 01/31/18 14:00 53 01/31/18 12:31 100 100 01/31/18 12:00 99.1 58 15 165/70 (101) 100 01/31/18 12:00 50 01/31/18 12:00 58 01/31/18 10:49 98 50 01/31/18 10:00 60 01/31/18 08:45 100 Mechanical Ventilator 50 01/31/18 08:45 69 01/31/18 08:45 76 168/50 01/31/18 08:45 99.4 76 15 175/72 (106) 100 168/50 (89) 01/31/18 08:00 50 01/31/18 07:45 100 100 01/31/18 07:01 80 20 177/75 (109) 100 Mechanical Ventilator 50 165/53 (90) 01/31/18 06:45 69 17 152/69 (96) 100 Mechanical Ventilator 50 153/51 (85) 01/31/18 06:30 66 17 149/65 (93) 100 Mechanical Ventilator 50 150/47 (81) 01/31/18 06:15 75 17 168/72 (104) 100 Mechanical Ventilator 50 150/47 (81) 01/31/18 06:00 70 18 159/70 (99) 100 Mechanical Ventilator 50 168/52 (90) 01/31/18 05:45 76 18 146/67 (93) 100 Mechanical Ventilator 50 161/48 (85) 01/31/18 05:30 67 16 136/65 (88) 100 Mechanical Ventilator 50 148/43 (78) 01/31/18 05:15 63 17 131/59 (83) 100 Mechanical Ventilator 50 140/44 (76) 01/31/18 05:15 63 131/59 01/31/18 05:00 67 155/69 01/31/18 05:00 99.5 67 17 155/69 (97) 100 Mechanical Ventilator 50 160/49 (86) 01/31/18 04:45 83 22 179/76 (110) 100 Mechanical Ventilator 50 180/59 (99) 01/31/18 04:30 69 17 156/68 (97) 100 Mechanical Ventilator 50 162/50 (87) 01/31/18 04:30 69 156/68 01/31/18 04:15 70 17 156/70 (98) 100 Mechanical Ventilator 50 163/70 (101) 01/31/18 04:00 50 01/31/18 04:00 74 16 156/69 (98) 100 Mechanical Ventilator 50 158/78 (104) 01/31/18 03:45 74 17 151/67 (95) 100 Mechanical Ventilator 50 163/52 (89) 01/31/18 03:45 74 151/67 01/31/18 03:33 100 50 01/31/18 03:30 78 16 139/63 (88) 100 Mechanical Ventilator 50 148/51 (83) 01/31/18 03:30 78 139/63 01/31/18 03:15 76 159/70 01/31/18 03:15 76 16 159/70 (99) 100 Mechanical Ventilator 50 144/43 (76) 01/31/18 03:00 74 16 169/75 (106) 100 Mechanical Ventilator 50 169/75 (106) 01/31/18 02:45 81 16 157/73 (101) 100 Mechanical Ventilator 50 154/48 (83) 01/31/18 02:45 81 157/73 01/31/18 02:30 79 158/48 01/31/18 02:30 82 15 186/82 (116) 100 Mechanical Ventilator 50 177/58 (97) 01/31/18 02:15 81 20 182/84 (116) 100 Mechanical Ventilator 50 175/60 (98) 01/31/18 02:00 68 20 147/66 (93) 100 Mechanical Ventilator 50 157/50 (85) 01/31/18 01:45 76 12 158/72 (100) 100 Mechanical Ventilator 50 164/53 (90) 01/31/18 01:30 69 12 153/68 (96) 100 Mechanical Ventilator 50 145/48 (80) 01/31/18 01:15 79 20 150/68 (95) 100 Mechanical Ventilator 50 151/54 (86) 01/31/18 01:11 80 147/67 01/31/18 01:00 84 17 147/67 (93) 100 Mechanical Ventilator 50 137/46 (76) 01/31/18 00:00 50 01/31/18 00:00 70 15 145/66 (92) 100 Mechanical Ventilator 50 147/66 (93) 01/30/18 23:30 75 21 154/69 (97) 100 Mechanical Ventilator 50 163/57 (92) 01/30/18 23:24 100 50 01/30/18 23:00 97.7 01/30/18 23:00 97.7 75 21 168/69 (102) 100 Mechanical Ventilator 50 162/57 (92) 01/30/18 22:30 70 21 163/69 (100) 100 Mechanical Ventilator 50 145/51 (82) 01/30/18 21:45 96.6 62 15 154/49 (84) 100 Mechanical Ventilator 50 01/30/18 21:30 70 20 177/74 (108) 99 Mechanical Ventilator 50 173/58 (96) 01/30/18 21:20 96.3 01/30/18 21:15 69 18 164/70 (101) 100 Mechanical Ventilator 50 168/55 (92) 01/30/18 21:00 77 21 168/76 (106) 100 Mechanical Ventilator 50 185/56 (99) 01/30/18 20:45 65 20 182/72 (108) 100 Mechanical Ventilator 50 172/50 (90) 01/30/18 20:30 73 10 175/81 (112) 100 Mechanical Ventilator 50 181/59 (99) 01/30/18 20:22 100 50 01/30/18 20:20 50 01/30/18 20:18 96.3 64 10 130/60 (83) 100 Ambu Bag 50 Mechanical Ventilator Labs: Laboratory Tests Test 01/31/18 07:07 01/31/18 08:30 White Blood Count 13.9 TH/MM3 (4.0-11.0) Red Blood Count 3.44 MIL/MM3 (4.50-5.90) Hemoglobin 9.9 GM/DL (13.0-17.0) Hematocrit 29.4 % (39.0-51.0) Mean Corpuscular Volume 85.4 FL (80.0-100.0) Mean Corpuscular Hemoglobin 28.8 PG (27.0-34.0) Mean Corpuscular Hemoglobin Concent 33.7 % (32.0-36.0) Red Cell Distribution Width 16.9 % (11.6-17.2) Platelet Count 198 TH/MM3 (150-450) Mean Platelet Volume 7.9 FL (7.0-11.0) Neutrophils (%) (Auto) 91.2 % (16.0-70.0) Lymphocytes (%) (Auto) 2.2 % (9.0-44.0) Monocytes (%) (Auto) 6.5 % (0.0-8.0) Eosinophils (%) (Auto) 0.0 % (0.0-4.0) Basophils (%) (Auto) 0.1 % (0.0-2.0) Neutrophils # (Auto) 12.6 TH/MM3 (1.8-7.7) Lymphocytes # (Auto) 0.3 TH/MM3 (1.0-4.8) Monocytes # (Auto) 0.9 TH/MM3 (0-0.9) Eosinophils # (Auto) 0.0 TH/MM3 (0-0.4) Basophils # (Auto) 0.0 TH/MM3 (0-0.2) CBC Comment DIFF FINAL Differential Comment Prothrombin Time 22.4 SEC (9.8-11.6) Prothromb Time International Ratio 2.2 RATIO Blood Urea Nitrogen 22 MG/DL (7-18) Creatinine 1.22 MG/DL (0.60-1.30) Random Glucose 179 MG/DL (74-106) Total Protein 5.7 GM/DL (6.4-8.2) Albumin 2.5 GM/DL (3.4-5.0) Calcium Level 7.5 MG/DL (8.5-10.1) Phosphorus Level 1.5 MG/DL (2.5-4.9) Magnesium Level 2.0 MG/DL (1.5-2.5) Alkaline Phosphatase 73 U/L (45-117) Aspartate Amino Transf (AST/SGOT) 15 U/L (15-37) Alanine Aminotransferase (ALT/SGPT) 17 U/L (12-78) Total Bilirubin 0.5 MG/DL (0.2-1.0) Sodium Level 142 MEQ/L (136-145) Potassium Level 3.8 MEQ/L (3.5-5.1) Chloride Level 106 MEQ/L (98-107) Carbon Dioxide Level 26.6 MEQ/L (21.0-32.0) Anion Gap 9 MEQ/L (5-15) Estimat Glomerular Filtration Rate 57 ML/MIN (>89) Thyroid Stimulating Hormone 3rd Gen 1.290 uIU/ML (0.358-3.740) Nasal Screen MRSA (PCR) MRSA NOT DETECTED (NOT Result Diagram: 01/31/18 0707 01/31/18 0707 Anusha Ayala MD Jan 31, 2018 15:10
[2018-01-31 15:17] LABS: HEMATOCRIT 27.4 % (39.0-51.0); HEMOGLOBIN 9.2 GM/DL (13.0-17.0); MEAN CELL VOLUME 85.9 FL (80.0-100.0); MEAN CORPUSCULAR HEMOGLOBIN 28.8 PG (27.0-34.0); MEAN CORPUSCULAR HGB CONC 33.6 % (32.0-36.0); MEAN PLATELET VOLUME 7.9 FL (7.0-11.0); PLATELET COUNT 185 TH/MM3 (150-450); RED BLOOD COUNT 3.19 MIL/MM3 (4.50-5.90); WHITE BLOOD COUNT 12.9 TH/MM3 (4.0-11.0)
[2018-01-31 15:44] LABS: INTERNATIONAL NORMALIZED RATIO 2.9 RATIO; PROTHROMBIN TIME - PATIENT 28.8 SEC (9.8-11.6)
[2018-01-31 16:12] LABS: TROPONIN I 0.1 NG/ML (0.02-0.05)
[2018-01-31] MEDS ORDERED: METO5TAB3 PO (18:42)
[2018-01-31] MEDS ORDERED: CHOL5000 PO (18:42)
[2018-01-31] MEDS ORDERED: MEDR4PAK PO (18:42)
[2018-01-31] MEDS ORDERED: COLC1CAP3 PO (18:42)
[2018-01-31] MEDS ORDERED: CITA20TA4 PO (18:42)
[2018-01-31] MEDS ORDERED: MELA5 PO (18:42)
[2018-01-31] MEDS ORDERED: ATOR40TA16 PO (18:42)
[2018-01-31] MEDS ORDERED: LEVO75TA3 PO (18:42)
[2018-01-31] MEDS ORDERED: CLON0.1T PO (18:42)
[2018-01-31] MEDS ORDERED: CHLOR50 PO (18:42)
[2018-01-31] MEDS ORDERED: VITACAP7 PO (18:42)
[2018-01-31] MEDS ORDERED: DOXA1TAB35 PO (18:42)
[2018-01-31] MEDS ORDERED: WARF-23 PO (18:42)
[2018-01-31] MEDS ORDERED: ULOR40TA (18:42)
[2018-01-31] MEDS ORDERED: VALS1TAB65 PO (18:42)
[2018-01-31] MEDS ORDERED: SPIRCAP INH (18:42)
[2018-01-31] MEDS ORDERED: DUTA1CAP2 PO (18:42)
[2018-01-31] MEDS ORDERED: VENTAER INH (18:42)
[2018-01-31] MEDS: ONDANSETRON HCL 4 MG/2 ML VIAL IV PUSH PRN (20:26)
[2018-02-01] VITALS (19 sets, daily range): BP systolic 156–178; BP diastolic 44–71; PULSE 48–116; RESP 13–56; TEMP 97.9–100; O2SAT 100
[2018-02-01] MEDS: CHLORHEXIDINE GLUCONATE 2 % 1 PACK (2 CLOTHS) TOP SCH (02:19)
[2018-02-01] MEDS: PROPOFOL 1000 MG/100 ML INJ 100 ML IV PRN ×2 (02:41→08:21)
[2018-02-01] MEDS: RESP: ALBUTEROL 2.5 MG/IPRATROPIUM 0.5 MG NEB (SCH) INH ×4 (03:07→20:55)
[2018-02-01 04:39] LABS: INTERNATIONAL NORMALIZED RATIO 2.6 RATIO; PROTHROMBIN TIME - PATIENT 25.9 SEC (9.8-11.6)
[2018-02-01 04:55] LABS: BICARBONATE 28.3 MEQ/L (21.0-32.0); CALCIUM 7.3 MG/DL (8.5-10.1); CREATININE 0.9 MG/DL (0.60-1.30)
--- NOTE | 2018-02-01 05:01 | RADRPT ---
EXAM DATE/TIME: 02/01/2018 04:41 [facility] COMPARISON: MRI BRAIN W/O CONTRAST, January 31, 2018, 11:29. CT BRAIN W/O CONTRAST, January 31, 2018, 12:03. INDICATIONS : Follow up stroke. RADIATION DOSE: 48.92 CTDIvol (mGy) MEDICAL HISTORY : Cardiovascular disease. Cerebrovascular disease. Hypertension. SURGICAL HISTORY : None. ENCOUNTER: Subsequent ACUITY: 1 day PAIN SCALE: Non-responsive LOCATION: cranial TECHNIQUE: Multiple contiguous axial images were obtained of the head. Using automated exposure control and adj ustment of the mA and/or kV according to patient size, radiation dose was kept as low as reasonably a chievable to obtain optimal diagnostic quality images. DICOM format image data is available electro nically for review and comparison. FINDINGS: CEREBRUM: Evolving infarcts are seen in the left parietal lobe. No evidence of mass effect or midline shift. Ve ntricles within normal limits. No acute intracranial hemorrhage or extra-axial fluid collection. No i ntercranial mass lesion. POSTERIOR FOSSA: The cerebellum and brainstem are intact. The 4th ventricle is midline. The cerebellopontine angle i s unremarkable. EXTRACRANIAL: The visualized portion of the orbits is intact. SKULL: The calvaria is intact. No evidence of skull fracture. CONCLUSION: Evolving left-sided parietal lobe infarcts. No evidence of intracranial hemorrhage. Jorge Beck MD on February 01, 2018 at 4:57 Board Certified Radiologist. This report was verified electronically.
[2018-02-01 05:03] LABS: HEMATOCRIT 25.3 % (39.0-51.0); HEMOGLOBIN 8.5 GM/DL (13.0-17.0); MEAN CELL VOLUME 84.7 FL (80.0-100.0); MEAN CORPUSCULAR HEMOGLOBIN 28.5 PG (27.0-34.0); MEAN CORPUSCULAR HGB CONC 33.6 % (32.0-36.0); MEAN PLATELET VOLUME 7.7 FL (7.0-11.0); PLATELET COUNT 169 TH/MM3 (150-450); RED BLOOD COUNT 2.99 MIL/MM3 (4.50-5.90); WHITE BLOOD COUNT 11.1 TH/MM3 (4.0-11.0)
[2018-02-01 05:12] LABS: CALCIUM-PROTEIN CORRECTED 8.3 MG/DL (8.5-10.1); TOTAL PROTEIN 5.2 GM/DL (6.4-8.2)
[2018-02-01] MEDS: PHENYLEPHRINE HCL 160 MG/D5W 484 ML ADMIX IV PRN ×2 (05:28)
[2018-02-01] MEDS: POTASSIUM CHLOR 20 MEQ PREMIX 100 ML IV PRN (06:49)
[2018-02-01] MEDS: SODIUM CHLORIDE 0.9% IV SCH ×2 (08:21→10:27)
[2018-02-01] MEDS: POTASSIUM CHLORIDE IV SCH ×2 (08:21→10:27)
--- NOTE | 2018-02-01 08:21 | EKG ---
Date Performed: 01/31/2018 Time Performed: 00:31:45 PTAGE: 82 years EKG: ATRIAL FIBRILLATION VOLTAGE CRITERIA FOR LVH NONSPECIFIC ST & T-WAVE ABNORMALITY ABNORMAL E CG NO PREVIOUS TRACING DOCTOR: Lexa Puentes Interpretating Date/Time 02/01/2018 08:19:46
[2018-02-01] MEDS: LANSOPRAZOLE SOLUTAB 30 MG TAB G-TUBE SCH (08:26)
[2018-02-01] MEDS: SODIUM CHLORIDE 0.9% FLUSH 10 ML FLUSH IV FLUSH SCH ×2 (08:26→21:13)
[2018-02-01] MEDS: DOCUSATE SODIUM 50 MG/SENNA 8.6 MG TAB PO SCH ×2 (08:27→20:25)
--- NOTE | 2018-02-01 11:18 | PD.CAR.PN ---
CVT Progress Note Subjective/Hospital Course: 01/31/2018 Status post repair of the right femoral artery Incision clean and dry Excellent distal pulses DESHAWN drainage decreased and minimal at this time Patient can be heparinized and anticoagulated in any safely from vascular point 02/01/2018 Patient doing okay from vascular point Groin incision clean and dry Dressing change daily Excellent distal pulses Patient can be safely anticoagulated from my point as above noted Nothing to add to care Objective: Vital Signs Date Time Temp Pulse Resp B/P (MAP) Pulse Ox O2 Delivery O2 Flow Rate FiO2 02/01/18 10:00 57 02/01/18 09:25 100 40 02/01/18 09:25 40 02/01/18 08:17 100 50 02/01/18 08:00 98.2 50 13 164/44 (84) 100 02/01/18 08:00 50 02/01/18 08:00 48 02/01/18 07:00 100 Mechanical Ventilator 50 02/01/18 06:00 58 02/01/18 05:56 49 166/58 02/01/18 05:28 57 158/51 02/01/18 04:40 100 50 02/01/18 04:25 100 100 02/01/18 04:00 50 02/01/18 04:00 100.0 116 56 159/51 (87) 100 02/01/18 04:00 56 02/01/18 03:25 62 134/44 02/01/18 02:45 51 198/66 02/01/18 02:41 50 192/62 02/01/18 02:16 48 190/60 02/01/18 02:08 50 134/49 02/01/18 02:00 55 02/01/18 01:25 100 50 02/01/18 00:00 59 02/01/18 00:00 50 02/01/18 00:00 99.0 59 13 156/71 (99) 100 156/71 (99) 01/31/18 22:00 53 01/31/18 20:30 100 50 01/31/18 20:00 50 01/31/18 20:00 58 01/31/18 20:00 98.6 54 13 168/51 (90) 100 168/51 (90) 01/31/18 19:00 100 Mechanical Ventilator 50 01/31/18 18:30 53 182/48 01/31/18 18:00 58 01/31/18 18:00 54 186/51 01/31/18 17:00 58 190/54 01/31/18 16:45 58 184/54 01/31/18 16:00 98.6 62 16 176/54 (94) 100 01/31/18 16:00 62 01/31/18 16:00 50 01/31/18 15:56 100 50 01/31/18 14:00 53 01/31/18 12:31 100 100 01/31/18 12:00 99.1 58 15 165/70 (101) 100 01/31/18 12:00 50 01/31/18 12:00 58 Labs: Laboratory Tests Test 02/01/18 01:58 02/01/18 04:15 02/01/18 07:30 Activated Partial Thromboplast Time 107.4 SEC (24.3-30.1) 81.5 SEC (24.3-30.1) 47.3 SEC (24.3-30.1) White Blood Count 11.1 TH/MM3 (4.0-11.0) Red Blood Count 2.99 MIL/MM3 (4.50-5.90) Hemoglobin 8.5 GM/DL (13.0-17.0) Hematocrit 25.3 % (39.0-51.0) Mean Corpuscular Volume 84.7 FL (80.0-100.0) Mean Corpuscular Hemoglobin 28.5 PG (27.0-34.0) Mean Corpuscular Hemoglobin Concent 33.6 % (32.0-36.0) Red Cell Distribution Width 17.0 % (11.6-17.2) Platelet Count 169 TH/MM3 (150-450) Mean Platelet Volume 7.7 FL (7.0-11.0) Prothrombin Time 25.9 SEC (9.8-11.6) Prothromb Time International Ratio 2.6 RATIO Blood Urea Nitrogen 19 MG/DL (7-18) Creatinine 0.90 MG/DL (0.60-1.30) Random Glucose 97 MG/DL (74-106) Total Protein 5.2 GM/DL (6.4-8.2) Calcium Level 7.3 MG/DL (8.5-10.1) Sodium Level 145 MEQ/L (136-145) Potassium Level 3.2 MEQ/L (3.5-5.1) Chloride Level 109 MEQ/L (98-107) Carbon Dioxide Level 28.3 MEQ/L (21.0-32.0) Anion Gap 8 MEQ/L (5-15) Estimat Glomerular Filtration Rate 80 ML/MIN (>89) Protein Corrected Calcium 8.3 MG/DL (8.5-10.1) Result Diagram: 02/01/18 0415 02/01/18 0415 Anusha Ayala MD Feb 01, 2018 11:18
--- NOTE | 2018-02-01 12:02 | HHI.PR ---
Subjective Remarks SP CLOT REMOVAL Objective Vital Signs Date Time Temp Pulse Resp B/P (MAP) Pulse Ox O2 Delivery O2 Flow Rate FiO2 02/01/18 10:00 57 02/01/18 09:25 100 40 02/01/18 09:25 40 02/01/18 08:17 100 50 02/01/18 08:00 98.2 50 13 164/44 (84) 100 02/01/18 08:00 50 02/01/18 08:00 48 02/01/18 07:00 100 Mechanical Ventilator 50 02/01/18 06:00 58 02/01/18 05:56 49 166/58 02/01/18 05:28 57 158/51 02/01/18 04:40 100 50 02/01/18 04:25 100 100 02/01/18 04:00 50 02/01/18 04:00 100.0 116 56 159/51 (87) 100 02/01/18 04:00 56 02/01/18 03:25 62 134/44 02/01/18 02:45 51 198/66 02/01/18 02:41 50 192/62 02/01/18 02:16 48 190/60 02/01/18 02:08 50 134/49 02/01/18 02:00 55 02/01/18 01:25 100 50 02/01/18 00:00 59 02/01/18 00:00 50 02/01/18 00:00 99.0 59 13 156/71 (99) 100 156/71 (99) 01/31/18 22:00 53 01/31/18 20:30 100 50 01/31/18 20:00 50 01/31/18 20:00 58 01/31/18 20:00 98.6 54 13 168/51 (90) 100 168/51 (90) 01/31/18 19:00 100 Mechanical Ventilator 50 01/31/18 18:30 53 182/48 01/31/18 18:00 58 01/31/18 18:00 54 186/51 01/31/18 17:00 58 190/54 01/31/18 16:45 58 184/54 01/31/18 16:00 98.6 62 16 176/54 (94) 100 01/31/18 16:00 62 01/31/18 16:00 50 01/31/18 15:56 100 50 01/31/18 14:00 53 01/31/18 12:31 100 100 01/31/18 12:00 99.1 58 15 165/70 (101) 100 01/31/18 12:00 50 01/31/18 12:00 58 I/O 01/31/18 01/31/18 01/31/18 02/01/18 02/01/18 02/01/18 07:00 15:00 23:00 07:00 15:00 23:00 Intake Total 568 ml 585 ml 30 ml 879 ml 220 ml Output Total 1480 ml 605 ml 680 ml Balance -912 ml 585 ml -575 ml 199 ml 220 ml Intake IV Total 568 ml 585 ml 879 ml 220 ml Tube Irrigant 30 ml Output Urine Total 1200 ml 500 ml 450 ml Gastric Drainage Total 250 ml 100 ml 200 ml Drainage Total 30 ml 5 ml 30 ml # Bowel Movements 0 0 Result Diagram: 02/01/18 0415 02/01/18 0415 Objective Remarks on vent and some dip awake not following commands pupil= flaccid rue can move the rle some moving left toes equiv bilat to upgoing no rxt threat on r does to left about same as yest Assessment and Plan Assessment and Plan imp mod size left mca cva minimal petichial change on mri afib with cva at 1.8 inr i dw son percy and risk of recurrent cva not anticoagulated and risk of bleeding into brain inc on heparin but i feel he is at higher risk of recurrent cva from afib than bleeding into cva he needs to get on coumadin aissatou can he get of vent soon? iv hep started no bolus recheck ct in am 02/01/18 ct no major change no blood hb down a little on iv hep coumadin when able off vent when able stable neuro Steven Baum MD Feb 01, 2018 12:02
[2018-02-01] MEDS: SODIUM CHLOR 0.9% 1000 ML INJ 1,000 ML IV SCH (13:50)
--- NOTE | 2018-02-01 16:07 | HHI.CCPN ---
Subjective Remarks/Hospital Course 82-year-old gentleman with past medical history of chronic atrial fibrillation on anticoagulation with warfarin, hypertension, hyperlipidemia, prior TIA who was transferred from [facility] due to acute stroke. His had spoken with him around 12:30 on 01/29. When she returned home at 1:30 he was having difficulty speaking and right hemiplegia. He presented to [facility] with right facial droop, right hemiplegia, leftward gaze, nonverbal. CT brain demonstrated hyperdense left M1 and M2 segments. He was not a candidate for systemic TPA due to INR of 1.8 at outside hospital. CTA demonstrated thromboembolism of M1 and M2 segments. CT perfusion demonstrated large acute left MCA infarct without surrounding ischemic penumbra. Consultation was made with neurology at [facility] who recommended medical management. Family requested aggressive therapy and case was discussed with Dr. Baum and neuroradiology and patient was transferred to [place] where he underwent thrombectomy by Dr. Shelby as family was accepting of increased risk of hemorrhage. There was difficulty achieving hemostasis at R groin site so he was taken emergently to [place] where he underwent repair of R femoral artery by Dr. Ayala. He was intubated in specials by Dr. Ames. Intraoperatively he received 800 crystalloid, EBL 450 mL, UOP was 700. Dr. Ayala discussed with Dr. Baum postoperatively and [facility] has been called for admission. Patient remains intubated. 01/31: Appears more alert this morning. We will leave intubated because he will require sedation for MRI. Try to extubate after. 02/01: MRI completed, will start weaning trials. Objective Vital Signs Date Time Temp Pulse Resp B/P (MAP) Pulse Ox O2 Delivery O2 Flow Rate FiO2 02/01/18 15:33 100 40 02/01/18 14:00 55 02/01/18 12:00 97.9 16 178/54 (95) 02/01/18 07:00 Mechanical Ventilator Intake and Output 02/01/18 02/01/18 02/02/18 08:00 16:00 00:00 Intake Total 879 ml 1240 ml Output Total 680 ml Balance 199 ml 1240 ml Result Diagram: 02/01/18 0415 02/01/18 0415 Objective Remarks GENERAL: Elderly patient who is orotracheally intubated. SKIN: Warm and dry. VASC: L radial art line in place with distal perfusion intact. Dressing in place right groin with some mild groin edema but no palpable hematoma. DESHAWN drain in place with dark tenderness output. HEAD: Atraumatic. Normocephalic. EYES: Pupils equal and round with pupils 3 mm and sluggishly reactive to 2 mm bilaterally.. No scleral icterus. No injection or drainage. ENT: No nasal bleeding or discharge. Mucous membranes pink and moist. Orotracheally intubated with 7.0 endotracheal tube. NECK: Trachea midline. No JVD. CARDIOVASCULAR: Irregularly irregular with rate in the 70s, A. fib on the monitor. No murmurs rubs or gallops. RESPIRATORY: Orotracheally intubated. CTAB. GASTROINTESTINAL: Abdomen soft, non-tender, nondistended. Bowel sounds present. MUSCULOSKELETAL: Extremities without clubbing, cyanosis. NEUROLOGICAL: Awake, eyes open, L gaze preference. Spontaneously moving LLE with at least 3/5 strength. A/P Assessment and Plan NEURO: Acute ischemic stroke, L MCA Sensorineural hearing loss History of TIA in 2009 Not candidate for systemic TPA due to INR 1.8. S/p thrombectomy 01/30/18. [facility] Neurology consultation. Dr. Baum to follow. RESP: Acute respiratory failure Sleep apnea on CPAP at home Change to PRVC. Ventilator Bundle. Appears he may be able to protect his airway for trial of extubation but would perform after MRI -> done. CV: Hypertension Hyperlipidemia Chronic atrial fibrillation on chronic anticoagulation with warfarin Chronic heart failure with preserved ejection fraction Hold antihypertensive medications. Right IJ central venous line placed and will use Yg-Synephrine to maintain systolic blood pressure 160-180 to facilitate cerebral perfusion. Dr. Ayala discussed with Dr. Baum who recommended this target. S/p R femoral artery repair 01/30. GI: Insert Orogastric tube and placed a lower intermittent wall suction. Initiate enteral feeds tomorrow if not extubating. FEN/RENAL: Chronic kidney disease stage IV Monitor intake and output via Varela. Monitor electrolytes. Replace as indicated. ID: Monitor for signs and symptoms of infection HEME: On chronic anti-coagulation with warfarin Hold warfarin for now. INR at OSH was 1.8, now 2.3. Eventually will resume but will monitor clinical course and imaging for evidence of hemorrhagic conversion. ENDO: Hypothyroidism Check TSH. Resume synthroid. MSK: Gout Resume appropriate meds. Med rec pending. PROPH: SCDs for DVT prophylaxis. His anticoagulated on warfarin with INR 2.3. Lansoprazole for stress ulcer prophylaxis. ACCESS: Left radial art line placed in OR 01/30/18. Right IJ central venous line placed 01/31/18 #3. Overall impression: Attempt to extubate. Stable neuro status. Yao Lopez MD Feb 01, 2018 16:07
[2018-02-01] MEDS: ACETAMINOPHEN 325 MG TAB PO PRN (23:35)
[2018-02-02] VITALS (16 sets, daily range): BP systolic 149–184; BP diastolic 41–80; PULSE 60–78; RESP 12–32; TEMP 97–98.9; O2SAT 100
[2018-02-02] MEDS: CHLORHEXIDINE GLUCONATE 2 % 1 PACK (2 CLOTHS) TOP SCH (04:00)
[2018-02-02] MEDS: RESP: ALBUTEROL 2.5 MG/IPRATROPIUM 0.5 MG NEB (SCH) INH ×4 (04:21→20:25)
[2018-02-02] MEDS: SODIUM CHLOR 0.9% 1000 ML INJ 1,000 ML IV SCH (04:24)
[2018-02-02] MEDS: PROPOFOL 1000 MG/100 ML INJ 100 ML IV PRN (05:31)
[2018-02-02] MEDS: HEPARIN-D5W 25,000 U/250 ML 250 ML IV PRN (05:59)
[2018-02-02 07:31] LABS: INTERNATIONAL NORMALIZED RATIO 1.8 RATIO; PROTHROMBIN TIME - PATIENT 18.6 SEC (9.8-11.6)
--- NOTE | 2018-02-02 08:18 | HHI.PR ---
Subjective Remarks SP CLOT REMOVAL Objective Vital Signs Date Time Temp Pulse Resp B/P (MAP) Pulse Ox O2 Delivery O2 Flow Rate FiO2 02/02/18 07:54 100 40 02/02/18 06:00 72 02/02/18 04:22 100 40 02/02/18 04:00 98.8 63 32 176/59 (98) 100 02/02/18 04:00 40 02/02/18 04:00 62 02/02/18 02:00 60 02/02/18 01:06 100 40 02/02/18 00:35 20 02/02/18 00:00 40 02/02/18 00:00 98.7 60 21 182/79 (113) 100 02/02/18 00:00 62 02/01/18 22:00 59 02/01/18 20:55 100 40 02/01/18 20:00 62 02/01/18 20:00 98.3 62 25 172/52 (92) 100 02/01/18 20:00 40 02/01/18 19:00 100 Mechanical Ventilator 40 02/01/18 18:49 61 190/54 02/01/18 18:00 56 02/01/18 17:10 60 188/55 02/01/18 16:40 58 192/54 02/01/18 16:20 56 184/56 02/01/18 16:00 56 02/01/18 16:00 40 02/01/18 16:00 98.0 56 14 168/48 (88) 100 02/01/18 15:33 100 40 02/01/18 14:00 55 02/01/18 12:00 40 02/01/18 12:00 97.9 58 16 178/54 (95) 100 02/01/18 12:00 58 02/01/18 10:00 57 02/01/18 09:25 100 40 02/01/18 09:25 40 I/O 02/01/18 02/01/18 02/01/18 02/02/18 02/02/18 02/02/18 07:00 15:00 23:00 07:00 15:00 23:00 Intake Total 879 ml 1240 ml 30 ml Output Total 680 ml 900 ml 450 ml Balance 199 ml 1240 ml -870 ml -450 ml Intake IV Total 879 ml 1240 ml Tube Irrigant 30 ml Output Urine Total 450 ml 750 ml 450 ml Gastric Drainage Total 200 ml 150 ml Drainage Total 30 ml # Bowel Movements 0 0 0 Result Diagram: 02/01/18 0415 02/01/182039 Objective Remarks on vent and some dip awake not following commands pupil= flaccid rue can move the rle some moving left toes equiv bilat to upgoing no rxt threat on r does to left about same as yest not following commands right now Assessment and Plan Assessment and Plan imp mod size left mca cva minimal petichial change on mri afib with cva at 1.8 inr i dw son percy and risk of recurrent cva not anticoagulated and risk of bleeding into brain inc on heparin but i feel he is at higher risk of recurrent cva from afib than bleeding into cva he needs to get on coumadin aissatou can he get of vent soon? iv hep started no bolus recheck ct in am 02/01/18 ct no major change no blood hb down a little on iv hep coumadin when able off vent when able stable neuro 02/02/18 stable await off vent watch h/h Steven Baum MD Feb 02, 2018 08:18
[2018-02-02] MEDS ORDERED: FUROSEMIDE 20 MG/2 ML VIAL IV PUSH ONE (09:00)
[2018-02-02] MEDS ORDERED: POTASSIUM CHLORIDE 25 MEQ EFFERVESCENT TAB PO ONE (09:00)
[2018-02-02] MEDS: SODIUM CHLORIDE 0.9% FLUSH 10 ML FLUSH IV FLUSH SCH ×2 (09:00→20:28)
[2018-02-02] MEDS: LANSOPRAZOLE SOLUTAB 30 MG TAB G-TUBE SCH (09:06)
[2018-02-02] MEDS: DOCUSATE SODIUM 50 MG/SENNA 8.6 MG TAB PO SCH ×2 (09:06→20:28)
--- NOTE | 2018-02-02 09:08 | HHI.CCPN ---
Subjective Remarks/Hospital Course 82-year-old gentleman with past medical history of chronic atrial fibrillation on anticoagulation with warfarin, hypertension, hyperlipidemia, prior TIA who was transferred from [facility] due to acute stroke. His had spoken with him around 12:30 on 01/29. When she returned home at 1:30 he was having difficulty speaking and right hemiplegia. He presented to [facility] with right facial droop, right hemiplegia, leftward gaze, nonverbal. CT brain demonstrated hyperdense left M1 and M2 segments. He was not a candidate for systemic TPA due to INR of 1.8 at outside hospital. CTA demonstrated thromboembolism of M1 and M2 segments. CT perfusion demonstrated large acute left MCA infarct without surrounding ischemic penumbra. Consultation was made with neurology at [facility] who recommended medical management. Family requested aggressive therapy and case was discussed with Dr. Baum and neuroradiology and patient was transferred to [place] where he underwent thrombectomy by Dr. Shelby as family was accepting of increased risk of hemorrhage. There was difficulty achieving hemostasis at R groin site so he was taken emergently to [place] where he underwent repair of R femoral artery by Dr. Ayala. He was intubated in specials by Dr. Ames. Intraoperatively he received 800 crystalloid, EBL 450 mL, UOP was 700. Dr. Ayala discussed with Dr. Baum postoperatively and [facility] has been called for admission. Patient remains intubated. 01/31: Appears more alert this morning. We will leave intubated because he will require sedation for MRI. Try to extubate after. 02/01: MRI completed, will start weaning trials. 02/02: Ct head yesterday showed evolving left sided stroke. Propofol held patient is awake follows commands from the left upper extremity. Flaccid on the right upper extremity. Moderate reinoso secretions from ET tube. Chest x-ray pending. Spontaneous breathing trials initiated Objective Vital Signs Date Time Temp Pulse Resp B/P (MAP) Pulse Ox O2 Delivery O2 Flow Rate FiO2 02/02/18 08:36 100 40 02/02/18 06:00 72 02/02/18 04:00 98.8 32 176/59 (98) 02/01/18 19:00 Mechanical Ventilator Intake and Output 02/02/18 02/02/18 02/03/18 08:00 16:00 00:00 Output Total 450 ml Balance -450 ml Result Diagram: 02/01/18 0415 02/01/182039 Objective Remarks GENERAL: Elderly patient who is orotracheally intubated. Propofol held SKIN: Warm and dry. VASC: L radial art line in place with distal perfusion intact. Dressing in place right groin with mild groin edema but no hematoma. DESHAWN drain in place. HEAD: Atraumatic. Normocephalic. EYES: Pupils equal and round with pupils 3 mm and sluggishly reactive to 2 mm bilaterally. No scleral icterus. No injection or drainage. ENT: No nasal bleeding or discharge. Mucous membranes pink and moist. Orotracheally intubated with 7.0 endotracheal tube. NECK: Trachea midline. No JVD. CARDIOVASCULAR: Irregularly irregular with rate in the 70s, A. fib on the monitor. No murmurs rubs or gallops. RESPIRATORY: Orotracheally intubated. CTAB. Moderate reinoso secretions GASTROINTESTINAL: Abdomen soft, non-tender, nondistended. Bowel sounds present. MUSCULOSKELETAL: Extremities without clubbing, cyanosis. NEUROLOGICAL: Awake, eyes open, L gaze preference. Follows commands on LUE, flaccid RUE. Spontaneously moving LLE with at least 3/5 strength. A/P Assessment and Plan NEURO: Acute ischemic stroke, L MCA Sensorineural hearing loss History of TIA in 2009 Not candidate for systemic TPA due to INR 1.8. S/p thrombectomy 01/30/18. MRI and CT shows evolving left sided stroke Neurocheck per ICU protocol Hemodynamic monitoring Neurology consultation. Dr. Baum to follow. RESP: Acute respiratory failure Sleep apnea on CPAP at home On PRVC. Ventilator Bundle. Appears he may be able to protect his airway for trial of extubation SBT 05/31 with weaning parameters CV: Hypertension Hyperlipidemia Chronic atrial fibrillation on chronic anticoagulation with warfarin Chronic heart failure with preserved ejection fraction Hold antihypertensive medications. Right IJ central venous line placed and use Yg-Synephrine to maintain systolic blood pressure 160-180 to facilitate cerebral perfusion. Dr. Ayala discussed with Dr. Baum who recommended this target. S/p R femoral artery repair 01/30. DC IVF, Give 20 mg IV Lasix GI: Orogastric tube placed to lower intermittent wall suction. Initiate enteral feeds if not extubating. FEN/RENAL: Chronic kidney disease stage IV Monitor intake and output via Varela. Monitor electrolytes. Replace as indicated. Diuresis with 20 mg IV Lasix 1 ID: Monitor for signs and symptoms of infection HEME: On chronic anti-coagulation with warfarin Hold warfarin for now. INR at OSH was 1.8, now 1.8. Continue IV heparin ENDO: Hypothyroidism Normal TSH. Continue Synthroid. MSK: Gout Resume appropriate meds. Med rec pending. PROPH: SCDs for DVT prophylaxis. He was anticoagulated on warfarin with INR 2.3 , inr today 1.8. Continue IV Heparin. Lansoprazole for stress ulcer prophylaxis. ACCESS: Left radial art line placed in OR 01/30/18. Right IJ central venous line placed 01/31/18. Overall impression: Attempt to extubate. Stable neuro status. Samson Chicas MD Feb 02, 2018 09:08
--- NOTE | 2018-02-02 10:20 | RADRPT ---
EXAM DATE/TIME: 02/02/2018 08:54 [facility] COMPARISON: CHEST SINGLE AP, January 31, 2018, 2:34. INDICATIONS : Respiratory disease. MEDICAL HISTORY : Chronic obstructive pulmonary disease. Hypertension Stroke. SURGICAL HISTORY : None. ENCOUNTER: Subsequent ACUITY: 4 - 6 days PAIN SCORE: Non-responsive. LOCATION: chest FINDINGS: The cardiac silhouette is enlarged in transverse diameter. Support lines and tubes are in satisfactor y position. There is left lower lobe atelectasis versus pneumonia. There is partial clearing of the r ight basilar opacity. CONCLUSION: Cardiomegaly. Left lower lobe atelectasis versus pneumonia. Slight improvement in the previously seen right basilar atelectasis versus edema Steven Gamez MD on February 02, 2018 at 10:17 Board Certified Radiologist. This report was verified electronically.
--- NOTE | 2018-02-02 10:29 | RADRPT ---
EXAM DATE/TIME: 01/30/2018 16:37 [facility] COMPARISON: MRI BRAIN W/O CONTRAST, January 31, 2018, 11:29. CT BRAIN W/O CONTRAST, February 01, 2018, 4:41. INDICATIONS : Emergent Stroke Alert MEDICAL HISTORY : Unavailable SURGICAL HISTORY : Unavailable ENCOUNTER: Initial ACUITY: 1 day PAIN SCORE: 0/10 Stroke, right side weakness FLUORO TIME: 19.3 minutes IMAGE SERIES: 11 ACCESS SITE: Right Femoral artery CONTRAST: 80 cc Visipaque (iodixanol) DEVICE(S): 1.) Left middle cerebral artery mechanical thrombectomy 068 Penumbra MIYA 2.) Right common femoral artery Angio-Seal TIMELINE: Interventional team called: 4:30 pm Interventional team arrived: 4:30 pm Interventional team ready: 4:30 pm Patient arrival: 5:25 pm Groin puncture: 5:36 pm Recanalization: 6:16 pm Anesthesia and pain control was provided by the Anesthesia department. PROCEDURE : 1. Ultrasound-guided puncture of the access site. 3. Left carotid angiography 4. Cerebral angiography 5. Embolectomy of the left M1 segment The risks, benefits and alternatives to the procedure were explained and verbal and written consent w as obtained. The site was prepped in sterile fashion. Full sterile technique was used, including ca p, mask, sterile gloves and gown and a large sterile sheet. Hand hygiene and 2% chlorhexidine and/or betadine/alcohol prep was utilized per protocol for cutaneous antisepsis. Sterile gel and sterile p robe cover were utilized for ultrasound guidance. The skin and subcutaneous tissues were infiltrated with local anesthetic solution. With ultrasound and fluoroscopic guidance the selected artery was punctured and a vascular sheath was placed. A LOTTIE 2 catheter was used to select the left carotid artery. Carotid angiography was performe d confirming occlusion of the distal left M1 segment with patency of the internal carotid artery. An 8 Chinese NeuronMax sheath was then placed in the common carotid artery. An MIYA-68 suction thrombectom y catheter and marroquin and microcatheter were then advanced to the face of the clot in the proximal lef t M1 segment. Following 2 minutes of suction the clot was retrieved through the sheath. Followup venu ography demonstrated patency of the left MCA branches with TICI3 recanalization. Wires and catheters were then removed. 8 Chinese Angio-Seal closure of the groin access was not successful and therefore manual compression was applied. The event the large bore sheath size and patient's elevated INR, deci nikita was made to request after surgery closure of the femoral access site. Patient was transferred to the OR suite under the care of Dr. Ayala. CONCLUSION: 1. TICI-3 revascularization of distal left M1 segment occlusion, as above. Grabiel Shelby MD on February 02, 2018 at 10:09 Board Certified Radiologist. This report was verified electronically.
--- NOTE | 2018-02-02 16:44 | PD.CAR.PN ---
CVT Progress Note Subjective/Hospital Course: 01/31/2018 Status post repair of the right femoral artery Incision clean and dry Excellent distal pulses DESHAWN drainage decreased and minimal at this time Patient can be heparinized and anticoagulated in any safely from vascular point 02/01/2018 Patient doing okay from vascular point Groin incision clean and dry Dressing change daily Excellent distal pulses Patient can be safely anticoagulated from my point as above noted Nothing to add to care 02/02/2018 Incision of the right groin is clean and dry Dry dressing daily Excellent distal pulses neurovascular acute deficit May shower and get incision wet soap and water [place] will remain in place for about 2 weeks total Objective: Vital Signs Date Time Temp Pulse Resp B/P (MAP) Pulse Ox O2 Delivery O2 Flow Rate FiO2 02/02/18 12:00 98.0 61 14 175/77 (109) 100 02/02/18 09:44 100 Nasal Cannula 3 02/02/18 09:40 100 Nasal Cannula 3.00 02/02/18 09:40 100 Nasal Cannula 4.00 02/02/18 08:36 100 40 02/02/18 08:36 Nasal Cannula 40 02/02/18 08:00 97.0 61 12 162/41 (81) 100 02/02/18 08:00 40 02/02/18 07:54 100 40 02/02/18 07:00 100 Mechanical Ventilator 40 02/02/18 06:00 72 02/02/18 04:22 100 40 02/02/18 04:00 98.8 63 32 176/59 (98) 100 02/02/18 04:00 40 02/02/18 04:00 62 02/02/18 02:00 60 02/02/18 01:06 100 40 02/02/18 00:35 20 02/02/18 00:00 40 02/02/18 00:00 98.7 60 21 182/79 (113) 100 02/02/18 00:00 62 02/01/18 22:00 59 02/01/18 20:55 100 40 02/01/18 20:00 62 02/01/18 20:00 98.3 62 25 172/52 (92) 100 02/01/18 20:00 40 02/01/18 19:00 100 Mechanical Ventilator 40 02/01/18 18:49 61 190/54 02/01/18 18:00 56 02/01/18 17:10 60 188/55 Labs: Laboratory Tests Test 02/02/18 06:10 Prothrombin Time 18.6 SEC (9.8-11.6) Prothromb Time International Ratio 1.8 RATIO Activated Partial Thromboplast Time 46.4 SEC (24.3-30.1) Result Diagram: 02/01/18 0415 02/01/180 Anusha Ayala MD Feb 02, 2018 16:44
--- NOTE | 2018-02-02 19:02 | MB ---
cc: Simone Faulkner MD DATE: 02/02/2018 REQUESTING PHYSICIAN: Samson Chicas MD REASON FOR CONSULTATION: Pulmonary management of respiratory failure. HISTORY OF PRESENT ILLNESS: Mr. Ramirez is a pleasant 82-year-old male who is known to me from the office. He has history of COPD, obstructive sleep apnea, chronic atrial fibrillation. He is being maintained on Coumadin anticoagulation and daughter monitors the INR at home. The patient was brought to [facility] with a facial droop and weakness on the right side. Workup showed that he has M1, M2 segment thromboembolism. The patient was transferred to [facility]. He underwent mechanical thrombectomy and then he had right groin site femoral artery repair. He was on ventilator. He has been extubated today. He opens his eyes, follows simple commands. He has weakness on the right side. He is able to move the right leg, but not the right arm. LABORATORY DATA: Reveals his WBC count is 11.1, hemoglobin 8.5, hematocrit 25.3, MCV 84, platelet count 169. Sodium 144, potassium 3.2, chloride 109, CO2 of 28, BUN 19, creatinine 0.9. INR 1.8. His chest x-ray shows cardiomegaly and atelectasis versus pneumonia at the left base. PAST MEDICAL HISTORY: Significant for history of COPD, obstructive sleep apnea, history of TIA, congestive heart failure, chronic atrial fibrillation, chronic kidney disease, umbilical hernia, cataract surgery. MEDICATIONS: He is currently taking hydralazine p.r.n., heparin drip, Prevacid 30 mg with albuterol/Atrovent nebulizer treatment. ALLERGIES: ALLOPURINOL. SOCIAL HISTORY: He has history of smoking in the past. Drinks wine occasionally. FAMILY HISTORY: He is , has grown children. 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 REVIEW OF SYSTEMS: The patient was able to ambulate and walk with the help of a cane, and he was coming to the office walking. Has no DVT or pulmonary embolism, no malignancy. PHYSICAL EXAMINATION: GENERAL: Well-developed, well-nourished male, on nasal cannula, mild short of breath and a little groggy after his extubation. VITAL SIGNS: Blood pressure 184/80, heart rate 73, respirations 16, temperature 97.3. HEENT: The pupils are equal and reactive to light. Oral mucosa and nasal mucosa normal. NECK: JVP not raised. CHEST: Bilateral rhonchi. CARDIOVASCULAR: S1, S2 normal. ABDOMEN: Soft, nondistended. Bowel sounds are present. EXTREMITIES: No edema. CENTRAL NERVOUS SYSTEM: He has weakness in the right side, more so on the right arm. IMPRESSION: 1. Respiratory failure, status post extubation. 2. Chronic obstructive pulmonary disease. 3. Obstructive sleep apnea. 4. Cerebrovascular accident, status post mechanical thrombectomy. 5. Hypertension. PLAN: Discussed with the patient's family at the bedside. Discussed with Dr. Chicas. Will monitor his blood pressure and supplement his oxygen. Continue aerosol treatment. Once he gets better, if needed, we will start him on BiPAP therapy. Further treatment will depend on the course in the hospital. Thank you, Dr. Samson Chicas, for this consult. MD XU Purdy/ROXANE , 06:09 PM , 07:01 PM MTDD
[2018-02-02] MEDS: hydrALAZINE HCL 20 MG/ML VIAL IV PUSH PRN (19:41)
[2018-02-03] VITALS (11 sets, daily range): BP systolic 149–193; BP diastolic 68–84; PULSE 70–92; RESP 14–34; TEMP 97.9–99.4; O2SAT 94–100
[2018-02-03] MEDS: RESP: ALBUTEROL 2.5 MG/IPRATROPIUM 0.5 MG NEB (SCH) INH ×4 (03:29→20:56)
[2018-02-03] MEDS: CHLORHEXIDINE GLUCONATE 2 % 1 PACK (2 CLOTHS) TOP SCH (04:00)
[2018-02-03 05:10] LABS: HEMATOCRIT 24.1 % (39.0-51.0); HEMOGLOBIN 8.2 GM/DL (13.0-17.0); MEAN CELL VOLUME 86.2 FL (80.0-100.0); MEAN CORPUSCULAR HEMOGLOBIN 29.4 PG (27.0-34.0); MEAN CORPUSCULAR HGB CONC 34.2 % (32.0-36.0); MEAN PLATELET VOLUME 7.8 FL (7.0-11.0); PLATELET COUNT 126 TH/MM3 (150-450); RED BLOOD COUNT 2.79 MIL/MM3 (4.50-5.90); RED CELL DISTRIBUTION WIDTH 16.5 % (11.6-17.2); WHITE BLOOD COUNT 5.8 TH/MM3 (4.0-11.0)
[2018-02-03 05:16] LABS: INTERNATIONAL NORMALIZED RATIO 1.7 RATIO
--- NOTE | 2018-02-03 08:08 | HHI.PR ---
Subjective Remarks SP CLOT REMOVAL Objective Vital Signs Date Time Temp Pulse Resp B/P (MAP) Pulse Ox O2 Delivery O2 Flow Rate FiO2 02/03/18 07:00 100 Nasal Cannula 2.00 02/03/18 06:00 76 02/03/18 04:00 99.0 70 26 149/68 (95) 100 02/03/18 04:00 70 02/03/18 02:00 76 02/03/18 00:00 80 02/03/18 00:00 99.4 80 25 155/69 (97) 100 02/02/18 22:00 78 02/02/18 21:00 100 Nasal Cannula 2.00 02/02/18 20:00 78 02/02/18 20:00 98.9 78 20 149/70 (96) 100 02/02/18 19:00 100 Nasal Cannula 2.00 02/02/18 16:00 97.8 73 17 184/80 (114) 100 02/02/18 12:00 98.0 61 14 175/77 (109) 100 02/02/18 09:44 100 Nasal Cannula 3 02/02/18 09:40 100 Nasal Cannula 3.00 02/02/18 09:40 100 Nasal Cannula 4.00 02/02/18 08:36 100 40 02/02/18 08:36 Nasal Cannula 40 I/O 02/02/18 02/02/18 02/02/18 02/03/18 02/03/18 02/03/18 07:00 15:00 23:00 07:00 15:00 23:00 Intake Total 100 ml 30 ml Output Total 450 ml 2150 ml 650 ml Balance -450 ml 100 ml -2120 ml -650 ml Intake IV Total 100 ml Tube Irrigant 30 ml Output Urine Total 450 ml 2150 ml 650 ml Gastric Drainage Total 0 ml # Bowel Movements 0 0 0 Result Diagram: 02/03/1844902/01/182039 Objective Remarks on vent and some dip awake not following commands pupil= flaccid rue can move the rle some moving left toes equiv bilat to upgoing no rxt threat on r does to left about same as yest not following commands right now 02/03/18 off vent awke mumbles globally aphasic moves left well 0/5 rue 1/5 rle r toe up awake alert Assessment and Plan Assessment and Plan imp mod size left mca cva minimal petichial change on mri afib with cva at 1.8 inr i dw son percy and risk of recurrent cva not anticoagulated and risk of bleeding into brain inc on heparin but i feel he is at higher risk of recurrent cva from afib than bleeding into cva he needs to get on coumadin aissatou can he get of vent soon? iv hep started no bolus recheck ct in am 02/01/18 ct no major change no blood hb down a little on iv hep coumadin when able off vent when able stable neuro 02/02/18 stable await off vent watch h/h 02/03/18 doing well resp looks good plan is coumadin aissatou when cleared to eat he can get oob he was on 5mg at home so could probably start with 10mg first day then 5 aftert that and dc hep when inr>1.9 Steven Baum MD Feb 03, 2018 08:08
[2018-02-03] MEDS: DOCUSATE SODIUM 50 MG/SENNA 8.6 MG TAB PO SCH ×2 (09:00→20:32)
[2018-02-03] MEDS: LANSOPRAZOLE SOLUTAB 30 MG TAB G-TUBE SCH (09:00)
[2018-02-03] MEDS: SODIUM CHLORIDE 0.9% FLUSH 10 ML FLUSH IV FLUSH SCH ×2 (09:00→20:32)
--- NOTE | 2018-02-03 10:48 | HHI.CCPN ---
Subjective Remarks/Hospital Course 82-year-old gentleman with past medical history of chronic atrial fibrillation on anticoagulation with warfarin, hypertension, hyperlipidemia, prior TIA who was transferred from [facility] due to acute stroke. His had spoken with him around 12:30 on 01/29. When she returned home at 1:30 he was having difficulty speaking and right hemiplegia. He presented to [facility] with right facial droop, right hemiplegia, leftward gaze, nonverbal. CT brain demonstrated hyperdense left M1 and M2 segments. He was not a candidate for systemic TPA due to INR of 1.8 at outside hospital. CTA demonstrated thromboembolism of M1 and M2 segments. CT perfusion demonstrated large acute left MCA infarct without surrounding ischemic penumbra. Consultation was made with neurology at [facility] who recommended medical management. Family requested aggressive therapy and case was discussed with Dr. Baum and neuroradiology and patient was transferred to [place] where he underwent thrombectomy by Dr. Shelby as family was accepting of increased risk of hemorrhage. There was difficulty achieving hemostasis at R groin site so he was taken emergently to OR where he underwent repair of R femoral artery by Dr. Ayala. He was intubated in specials by Dr. Ames. Intraoperatively he received 800 crystalloid, EBL 450 mL, UOP was 700. Dr. Ayala discussed with Dr. Baum postoperatively and [facility] has been called for admission. Patient remains intubated. 01/31: Appears more alert this morning. We will leave intubated because he will require sedation for MRI. Try to extubate after. 02/01: MRI completed, will start weaning trials. 02/02: Ct head yesterday showed evolving left sided stroke. Propofol held patient is awake follows commands from the left upper extremity. Flaccid on the right upper extremity. Moderate reinoso secretions from ET tube. Chest x-ray pending. Spontaneous breathing trials initiated 02/03: Extubated yesterday breathing comfortably. Globally aphasic. Moves LUE, follows commands on the same. Pleasant. Discussed with Dr. Baum lower blood pressure goal to 140-160. Start Coumadin once cleared by speech therapy Objective Vital Signs Date Time Temp Pulse Resp B/P (MAP) Pulse Ox O2 Delivery O2 Flow Rate FiO2 02/03/18 08:25 96 21 02/03/18 07:00 Nasal Cannula 2.00 02/03/18 06:00 76 02/03/18 04:00 99.0 26 149/68 (95) Intake and Output 02/03/18 02/03/18 02/04/18 08:00 16:00 00:00 Output Total 650 ml Balance -650 ml Result Diagram: 02/03/18 0450 02/01/182039 Objective Remarks GENERAL: Elderly patient who is on NC SKIN: Warm and dry. VASC: L radial art line in place with distal perfusion intact-DC. Dressing in place right groin with mild groin edema but no hematoma. DESHAWN drain in place. HEAD: Atraumatic. Normocephalic. EYES: Pupils equal and round with pupils 3 mm and sluggishly reactive to 2 mm bilaterally. No scleral icterus. No injection or drainage. ENT: No nasal bleeding or discharge. Mucous membranes pink and moist. NECK: Trachea midline. No JVD. CARDIOVASCULAR: Irregularly irregular with rate in the 70s, A. fib on the monitor. No murmurs rubs or gallops. RESPIRATORY: CTAB. No accessory muscle use GASTROINTESTINAL: Abdomen soft, non-tender, nondistended. Bowel sounds present. MUSCULOSKELETAL: Extremities without clubbing, cyanosis. NEUROLOGICAL: Awake, eyes open, L gaze preference. Global aphasia. Follows commands on LUE, flaccid RUE. Spontaneously moving LLE with at least 3/5 strength. A/P Assessment and Plan NEURO: Acute ischemic stroke, L MCA Sensorineural hearing loss History of TIA in 2009 Was not candidate for systemic TPA due to INR 1.8. S/p thrombectomy 01/30/18. MRI and CT shows evolving left sided stroke Neurocheck per ICU protocol Hemodynamic monitoring Neurology Dr. Baum following On IV heparin, transitioned to Coumadin RESP: Acute respiratory failure Sleep apnea on CPAP at home On [place]. Extubated 02/02 DuoNeb every 6 hours as needed E CPAP Activella CV: Hypertension Hyperlipidemia Chronic atrial fibrillation on chronic anticoagulation with warfarin Chronic heart failure with preserved ejection fraction Hold antihypertensive medications. Lower blood pressure target to 140-160, discussed with Dr. Baum Right IJ central venous line placed and use Yg-Synephrine to maintain systolic blood pressure target Dr. Ayala discussed with Dr. Baum who recommended this target. S/p R femoral artery repair 01/30. s/p 20 mg IV Lasix GI: Speech therapy consult for swallow eval, diet per recommendation if passed FEN/RENAL: Chronic kidney disease stage IV Monitor intake and output via Varela. Monitor electrolytes. Replace as indicated. Diuresis with 20 mg IV Lasix 1 ID: Monitor for signs and symptoms of infection HEME: On chronic anti-coagulation with warfarin Continue IV heparin Start home dose of warfarin at 5 mg daily and consult pharmacy to dose ENDO: Hypothyroidism Normal TSH. Continue Synthroid. MSK: Gout Resume appropriate meds. Med rec pending. PROPH: SCDs for DVT prophylaxis. Resume Coumadin and pharmacy to dose, continue IV Heparin. Lansoprazole for stress ulcer prophylaxis. ACCESS: Left radial art line placed in OR 01/30/18 DCd 02/02/18. Right IJ central venous line placed 01/31/18. Overall impression: Extubated yesterday for 918 tolerating well. Continue ICU care for another 24-48 hours. PT OT speech Samson Chicas MD Feb 03, 2018 10:48
[2018-02-03 12:42] LABS: ALBUMIN 2.5 GM/DL (3.4-5.0); ALKALINE PHOSPHATASE 80 U/L (45-117); ALT (GPT) 18 U/L (12-78); AST (GOT) 20 U/L (15-37); BICARBONATE 31.1 MEQ/L (21.0-32.0); BLOOD UREA NITROGEN 16 MG/DL (7-18); CALCIUM 8.2 MG/DL (8.5-10.1); CHLORIDE 106 MEQ/L (98-107); CREATININE 0.77 MG/DL (0.60-1.30); GLOMERULAR FILTRATION RATE 96 ML/MIN (>89); GLUCOSE,RANDOM 104 MG/DL (74-106); MAGNESIUM 1.9 MG/DL (1.5-2.5); PHOSPHORUS 2.1 MG/DL (2.5-4.9); SODIUM (NA) 144 MEQ/L (136-145); TOTAL BILIRUBIN ADULT 1.2 MG/DL (0.2-1.0); TOTAL PROTEIN 5.8 GM/DL (6.4-8.2)
[2018-02-03] MEDS: ACETAMINOPHEN 325 MG TAB PO PRN (16:45)
[2018-02-03] MEDS: WARFARIN SOD 5 MG TAB PO SCH (16:45)
--- NOTE | 2018-02-03 20:27 | HHI.PR ---
Subjective Remarks 82 YO Male with COPD,RUBEN,AF,CVA, s/p Clot removal On NC Alert, awake, follows commands Speech garbled but family able to understand him Tolerates PO Ambulated with PT Objective Vital Signs Vital Signs Date Time Temp Pulse Resp B/P (MAP) Pulse Ox O2 Delivery O2 Flow Rate FiO2 02/03/18 16:00 98.2 80 20 178/81 (113) 97 02/03/18 12:00 98.4 79 17 155/69 (97) 97 02/03/18 08:25 96 21 02/03/18 08:00 98.9 85 14 150/84 (106) 94 Arterial Line 02/03/18 07:00 100 Nasal Cannula 2.00 02/03/18 06:00 76 02/03/18 04:00 99.0 70 26 149/68 (95) 100 02/03/18 04:00 70 02/03/18 02:00 76 02/03/18 00:00 80 02/03/18 00:00 99.4 80 25 155/69 (97) 100 02/02/18 22:00 78 02/02/18 21:00 100 Nasal Cannula 2.00 I/O 02/02/18 02/02/18 02/02/18 02/03/18 02/03/18 02/03/18 07:00 15:00 23:00 07:00 15:00 23:00 Intake Total 100 ml 30 ml 10 ml Output Total 450 ml 2150 ml 650 ml 125 ml Balance -450 ml 100 ml -2120 ml -650 ml -115 ml Intake Oral 10 ml IV Total 100 ml Tube Irrigant 30 ml Output Urine Total 450 ml 2150 ml 650 ml 125 ml Gastric Drainage Total 0 ml Bladder Scan Volume Amount 210 ml # Bowel Movements 0 0 0 0 Result Diagram: 02/03/18 0450 02/03/18 1145 Objective Remarks GENERAL: MBMN Male, NAD SKIN: Warm and dry. HEAD: Normocephalic. EYES: No scleral icterus. No injection or drainage. NECK: Supple, trachea midline. No JVD or lymphadenopathy. CARDIOVASCULAR: Regular rate and rhythm without murmurs, gallops, or rubs. RESPIRATORY: Breath sounds equal bilaterally. No accessory muscle use. GASTROINTESTINAL: Abdomen soft, non-tender, nondistended. MUSCULOSKELETAL: No cyanosis, or edema. Weakness RUE BACK: Nontender without obvious deformity. No CVA tenderness. A/P Assessment and Plan IMPRESSION: 1. Respiratory failure, status post extubation. 2. Chronic obstructive pulmonary disease. 3. Obstructive sleep apnea. 4. Cerebrovascular accident, status post mechanical thrombectomy. 5. Hypertension. PLAN: Heparin drip Started on Coumadin Aerosol prn Supplement 02 DW family at BS Simone Faulkner MD Feb 03, 2018 20:27
[2018-02-03] MEDS: hydrALAZINE HCL 20 MG/ML VIAL IV PUSH PRN (21:36)
[2018-02-04] VITALS (15 sets, daily range): BP systolic 131–182; BP diastolic 60–79; PULSE 82–100; RESP 18–33; TEMP 98–99.1; O2SAT 95–99
[2018-02-04] MEDS ORDERED: HALOPERIDOL LACTATE 5 MG/ML AMP IM PRN (03:15)
[2018-02-04] MEDS: RESP: ALBUTEROL 2.5 MG/IPRATROPIUM 0.5 MG NEB (SCH) INH (03:29)
[2018-02-04] MEDS: hydrALAZINE HCL 20 MG/ML VIAL IV PUSH PRN ×2 (03:34→19:32)
[2018-02-04] MEDS: CHLORHEXIDINE GLUCONATE 2 % 1 PACK (2 CLOTHS) TOP SCH (04:00)
[2018-02-04 04:13] LABS: INTERNATIONAL NORMALIZED RATIO 1.9 RATIO; PROTHROMBIN TIME - PATIENT 19.6 SEC (9.8-11.6)
[2018-02-04] MEDS: SODIUM CHLORIDE 0.9% FLUSH 10 ML FLUSH IV FLUSH SCH ×2 (09:00→21:00)
[2018-02-04] MEDS: LANSOPRAZOLE SOLUTAB 30 MG TAB G-TUBE SCH (09:00)
[2018-02-04] MEDS: DOCUSATE SODIUM 50 MG/SENNA 8.6 MG TAB PO SCH ×2 (09:00→21:00)
--- NOTE | 2018-02-04 09:09 | HHI.PR ---
Review/Management Plan imp mod size left mca cva minimal petichial change on mri afib with cva at 1.8 inr i dw son percy and risk of recurrent cva not anticoagulated and risk of bleeding into brain inc on heparin but i feel he is at higher risk of recurrent cva from afib than bleeding into cva he needs to get on coumadin aissatou can he get of vent soon? iv hep started no bolus recheck ct in am 02/01/18 ct no major change no blood hb down a little on iv hep coumadin when able off vent when able stable neuro 02/02/18 stable await off vent watch h/h 02/03/18 doing well resp looks good plan is coumadin aissatou when cleared to eat he can get oob he was on 5mg at home so could probably start with 10mg first day then 5 aftert that and dc hep when inr>1.9 02/04/18 some agitation overnoc was given sedatives on coumadin, INR 1.9, can dc heparin now daily INR try and get oob today fu Diagnosis/Plan: Subjective Subjective Comments No acute events reported No headache No chest pain No dyspnea Active Medications Current Medications Medications (Trade) Dose Ordered Sig/Demetra Route Start Time Stop Time Status Last Admin (NS Flush) 2 ml UNSCH PRN IV FLUSH 01/30/18 23:15 (NS Flush) 2 ml BID IV FLUSH 01/31/18 09:00 02/03/18 20:32 (Tylenol) 650 mg Q6H PRN PO 01/30/18 23:15 02/03/18 16:45 (Prevacid Odt) 30 mg DAILY G-TUBE 01/31/18 09:00 02/02/18 09:06 (Zofran Inj) 4 mg Q6H PRN IV PUSH 01/30/18 23:15 01/31/18 20:26 (Albuterol Neb) 2.5 mg Q2HR NEB PRN INH 01/30/18 23:15 Miscellaneous Information 1 Q361D XX 01/30/18 23:15 01/30/18 23:15 (Chlorhexidine 2% Cloth) 3 pack Taper DAILY@04 TOP 01/31/18 04:00 01/27/19 03:59 (Chlorhexidine 2% Cloth) 3 pack UNSCH PRN TOP 01/30/18 23:15 (Gifty-Colace) 1 tab BID PO 01/31/18 09:00 02/03/18 20:32 (Milk Of Magnesia Liq) 30 ml Q12H PRN PO 01/30/18 23:15 (Senokot) 17.2 mg Q12H PRN PO 01/30/18 23:15 (Dulcolax Supp) 10 mg DAILY PRN RECTAL 01/30/18 23:15 (Lactulose Liq) 30 ml DAILY PRN PO 01/30/18 23:15 (Brethine Inj) 1 mg UNSCH PRN SQ 01/31/18 01:15 Potassium Chloride 100 ml @ 50 mls/hr Q2H PRN IV 01/31/18 01:15 Potassium Chloride 100 ml @ 50 mls/hr Q2H PRN IV 01/31/18 01:15 (K-Lyte Cl Eff) 50 meq UNSCH PRN PO 01/31/18 01:15 Potassium Chloride 100 ml @ 25 mls/hr UNSCH PRN IV 01/31/18 01:15 Potassium Chloride 100 ml @ 50 mls/hr Q2H PRN IV 01/31/18 01:15 02/01/18 06:49 Magnesium Sulfate 4 gm/Sodium Chloride 100 ml @ 50 mls/hr UNSCH PRN IV 01/31/18 01:15 (Mag-Ox) 800 mg UNSCH PRN PO 01/31/18 01:15 Magnesium Sulfate 2 gm/Sodium Chloride 100 ml @ 50 mls/hr UNSCH PRN IV 01/31/18 01:15 (K-Phos) 2,000 mg Q4H PRN PO 01/31/18 01:15 Sodium Phosphate 30 mmol/Sodium Chloride 250 ml @ 42 mls/hr UNSCH PRN IV 01/31/18 01:15 01/31/18 17:07 (K-Phos) 2,000 mg UNSCH PRN PO/TUBE 01/31/18 01:15 Potassium Phosphate 30 mmol/ Sodium Chloride 260 ml @ 42 mls/hr UNSCH PRN IV 01/31/18 01:15 Phenylephrine HCl 160 mg/Dextrose 500 ml @ 7.5 mls/hr TITRATE PRN IV 01/31/18 13:00 02/01/18 05:56 Heparin Sodium/ Dextrose 250 ml @ 11 mls/hr TITRATE PRN IV 01/31/18 13:30 02/02/18 05:59 (Apresoline Inj) 20 mg Q4H PRN IV PUSH 02/02/18 17:30 02/04/18 03:34 (Coumadin) 5 mg DAILY@1600 PO 02/03/18 16:00 02/03/18 16:45 Pharmacy Profile Note 0 ml @ 0 mls/hr UNSCH OTHER 02/03/18 10:45 (Haldol Inj) 5 mg Q6H PRN IM 02/04/18 03:15 02/04/18 04:11 Allergies Allergies Coded Allergies allopurinol (Verified Allergy, Severe, Irritation, 01/31/18) Exam I&O / VS Vital Signs Date Time Temp Pulse Resp B/P (MAP) Pulse Ox O2 Delivery O2 Flow Rate FiO2 02/04/18 06:00 90 02/04/18 04:00 88 02/04/18 04:00 98.4 88 28 180/77 (111) 96 02/04/18 02:00 82 02/04/18 00:00 98.0 84 20 133/62 (85) 95 02/04/18 00:00 84 02/03/18 22:00 92 02/03/18 21:12 99 21 02/03/18 20:00 80 02/03/18 20:00 97.9 80 34 193/76 (115) 97 02/03/18 19:00 97 Room Air 02/03/18 16:00 98.2 80 20 178/81 (113) 97 02/03/18 12:00 98.4 79 17 155/69 (97) 97 Exam Comments moving le spontaneously and lue not following commands now rue 0/5 Objective Micro and Labs Laboratory Tests Test 02/03/18 11:45 02/04/18 03:55 Blood Urea Nitrogen 16 Creatinine 0.77 Random Glucose 104 Total Protein 5.8 Albumin 2.5 Calcium Level 8.2 Phosphorus Level 2.1 Magnesium Level 1.9 Alkaline Phosphatase 80 Aspartate Amino Transf (AST/SGOT) 20 Alanine Aminotransferase (ALT/SGPT) 18 Total Bilirubin 1.2 Sodium Level 144 Potassium Level 3.6 Chloride Level 106 Carbon Dioxide Level 31.1 Anion Gap 7 Estimat Glomerular Filtration Rate 96 Prothrombin Time 19.6 Prothromb Time International Ratio 1.9 Date/Time Source Procedure Growth Status 02/02/18 09:20 Sputum Endotracheal Gram Stain - Final Resulted 02/02/18 09:20 Sputum Endotracheal Sputum Culture - Preliminary HEAVY GROWTH NORMAL RESPIRATORY CHANTELL... Resulted Thao Golden [facility] Feb 04, 2018 09:09
--- NOTE | 2018-02-04 09:24 | HHI.CCPN ---
Subjective Remarks/Hospital Course 82-year-old gentleman with past medical history of chronic atrial fibrillation on anticoagulation with warfarin, hypertension, hyperlipidemia, prior TIA who was transferred from [facility] due to acute stroke. His had spoken with him around 12:30 on 01/29. When she returned home at 1:30 he was having difficulty speaking and right hemiplegia. He presented to [facility] with right facial droop, right hemiplegia, leftward gaze, nonverbal. CT brain demonstrated hyperdense left M1 and M2 segments. He was not a candidate for systemic TPA due to INR of 1.8 at outside hospital. CTA demonstrated thromboembolism of M1 and M2 segments. CT perfusion demonstrated large acute left MCA infarct without surrounding ischemic penumbra. Consultation was made with neurology at [facility] who recommended medical management. Family requested aggressive therapy and case was discussed with Dr. Baum and neuroradiology and patient was transferred to [place] where he underwent thrombectomy by Dr. Shelby as family was accepting of increased risk of hemorrhage. There was difficulty achieving hemostasis at R groin site so he was taken emergently to OR where he underwent repair of R femoral artery by Dr. Ayala. He was intubated in specials by Dr. Ames. Intraoperatively he received 800 crystalloid, EBL 450 mL, UOP was 700. Dr. Ayala discussed with Dr. Baum postoperatively and [facility] has been called for admission. Patient remains intubated. 01/31: Appears more alert this morning. We will leave intubated because he will require sedation for MRI. Try to extubate after. 02/01: MRI completed, will start weaning trials. 02/02: Ct head yesterday showed evolving left sided stroke. Propofol held patient is awake follows commands from the left upper extremity. Flaccid on the right upper extremity. Moderate reinoso secretions from ET tube. Chest x-ray pending. Spontaneous breathing trials initiated 02/03: Extubated yesterday breathing comfortably. Globally aphasic. Moves LUE, follows commands on the same. Pleasant. Discussed with Dr. Baum lower blood pressure goal to 140-160. Start Coumadin once cleared by speech therapy 02/04: Episode of agitation early a.m., tried to get out of bed. Patient was given Haldol with improvement in agitation now sedated. Not following commands due to sedation but moving extremities except right upper. Possibly ICU delirium Objective Vital Signs Date Time Temp Pulse Resp B/P (MAP) Pulse Ox O2 Delivery O2 Flow Rate FiO2 02/04/18 06:00 90 02/04/18 04:00 98.4 28 180/77 (111) 96 02/03/18 21:12 21 02/03/18 19:00 Room Air 02/03/18 07:00 2.00 Result Diagram: 02/03/18 0450 02/03/18 1145 Objective Remarks GENERAL: Elderly patient who is on NC, sedated from receiving Haldol SKIN: Warm and dry. VASC: Right IJ central line in place HEAD: Atraumatic. Normocephalic. EYES: Pupils equal and round with pupils 3 mm and sluggishly reactive to 2 mm bilaterally. No scleral icterus. No injection or drainage. ENT: No nasal bleeding or discharge. Mucous membranes pink and moist. NECK: Trachea midline. No JVD. CARDIOVASCULAR: Irregularly irregular with rate in the 70s, A. fib on the monitor. No murmurs rubs or gallops. RESPIRATORY: CTAB. No accessory muscle use GASTROINTESTINAL: Abdomen soft, non-tender, nondistended. Bowel sounds present. MUSCULOSKELETAL: Extremities without clubbing, cyanosis. NEUROLOGICAL: Currently sedated from overnight Haldol. Global aphasia. Moves LUE, flaccid RUE. Spontaneously moving LLE with at least 3/5 strength. A/P Assessment and Plan NEURO: Acute ischemic stroke, L MCA Agitation/delirium Sensorineural hearing loss History of TIA in 2009 Was not candidate for systemic TPA due to INR 1.8. S/p thrombectomy 01/30/18. MRI and CT shows evolving left sided stroke Neurocheck per ICU protocol Hemodynamic monitoring Neurology Dr. Baum following On IV heparin, transitioning to Coumadin Haldol 2 mg IV q6hr PRN for agitation Agitation most likely secondary to ICU delirium, check UA PT/OT/Speech RESP: Acute respiratory failure-resolved Sleep apnea on CPAP at home On [place]. Extubated 02/02 DuoNeb every 6 hours as needed EzPAP, Acapella CV: Hypertension Hyperlipidemia Chronic atrial fibrillation on chronic anticoagulation with warfarin Chronic heart failure with preserved ejection fraction Holding antihypertensive medications. Blood pressure target to 140-160, discussed with Dr. Baum Right IJ central venous line placed and DC today S/p R femoral artery repair 01/30, Dr. Ayala GI: Speech therapy consult for swallow eval, diet per recommendation. NPO until patient is more awake FEN/RENAL: Chronic kidney disease stage IV Monitor intake and output via Varela. Monitor electrolytes. Replace as indicated. ID: Monitor for signs and symptoms of infection HEME: On chronic anti-coagulation with warfarin Continue IV heparin Started home dose of warfarin at 5 mg daily and pharmacy to dose ENDO: Hypothyroidism Normal TSH. Continue Synthroid. MSK: Gout Resume appropriate meds. Med rec pending. PROPH: SCDs for DVT prophylaxis. Resumed Coumadin and pharmacy to dose, continue IV Heparin. Lansoprazole for stress ulcer prophylaxis. ACCESS: Left radial art line placed in OR 01/30/18 DCd 02/02/18. Right IJ central venous line placed 01/31/18-DC today 02/04/18 Overall impression: Extubated 02/02/18 tolerating well. Continue ICU care due to agitation/delirium. PT OT speech Samson Chicas MD Feb 04, 2018 09:24
--- NOTE | 2018-02-04 11:03 | RADRPT ---
EXAM DATE/TIME: 02/04/2018 09:51 [facility] COMPARISON: CHEST SINGLE AP, February 02, 2018, 8:54. INDICATIONS : Respiratory disease. MEDICAL HISTORY : Chronic obstructive pulmonary disease. Hypertension Stroke. SURGICAL HISTORY : None. ENCOUNTER: Subsequent ACUITY: 4 - 6 days PAIN SCORE: Non-responsive. LOCATION: Bilateral chest FINDINGS: Cardiomegaly with moderate bibasilar clinical changes. No interstitial edema. No pneumothorax. Autumn tral line in good position. CONCLUSION: Improvement with less consolidation in the left base. Fabrice Tom MD FACR on February 04, 2018 at 10:59 Board Certified Radiologist. This report was verified electronically.
[2018-02-04] MEDS ORDERED: HALOPERIDOL LACTATE 5 MG/ML AMP IV PRN (15:15)
[2018-02-04] MEDS: WARFARIN SOD 5 MG TAB PO SCH (16:00)
--- NOTE | 2018-02-04 20:39 | HHI.PR ---
Subjective Remarks 82 YO Male with COPD,RUBEN,AF,CVA, s/p Clot removal On NC Speech garbled but family able to understand him Was agitated had haldol Objective Vital Signs Vital Signs Date Time Temp Pulse Resp B/P (MAP) Pulse Ox O2 Delivery O2 Flow Rate FiO2 02/04/18 19:18 99 02/04/18 18:00 92 02/04/18 16:00 92 02/04/18 16:00 98.8 87 20 131/60 (83) 98 02/04/18 14:00 90 02/04/18 12:00 98.7 90 18 157/61 (93) 98 02/04/18 12:00 90 02/04/18 10:00 90 02/04/18 09:00 90 02/04/18 08:00 90 02/04/18 08:00 98.0 87 20 182/79 (113) 98 02/04/18 07:00 96 Room Air 02/04/18 06:00 90 02/04/18 04:00 88 02/04/18 04:00 98.4 88 28 180/77 (111) 96 02/04/18 02:00 82 02/04/18 00:00 98.0 84 20 133/62 (85) 95 02/04/18 00:00 84 02/03/18 22:00 92 02/03/18 21:12 99 21 I/O 02/03/18 02/03/18 02/03/18 02/04/18 02/04/18 02/04/18 07:00 15:00 23:00 07:00 15:00 23:00 Intake Total 10 ml 120 ml Output Total 650 ml 125 ml 470 ml Balance -650 ml -115 ml -350 ml Intake Oral 10 ml 120 ml Output Urine Total 650 ml 125 ml 470 ml Bladder Scan Volume Amount 210 ml # Voids 2 # Bowel Movements 0 0 0 Result Diagram: 02/03/18 0450 02/03/18 1145 Objective Remarks GENERAL: MBMN Male, NAD SKIN: Warm and dry. HEAD: Normocephalic. EYES: No scleral icterus. No injection or drainage. NECK: Supple, trachea midline. No JVD or lymphadenopathy. CARDIOVASCULAR: Regular rate and rhythm without murmurs, gallops, or rubs. RESPIRATORY: Breath sounds equal bilaterally. No accessory muscle use. GASTROINTESTINAL: Abdomen soft, non-tender, nondistended. MUSCULOSKELETAL: No cyanosis, or edema. Weakness RUE BACK: Nontender without obvious deformity. No CVA tenderness. A/P Assessment and Plan IMPRESSION: 1. Respiratory failure, status post extubation. 2. Chronic obstructive pulmonary disease. 3. Obstructive sleep apnea. 4. Cerebrovascular accident, status post mechanical thrombectomy. 5. Hypertension. PLAN: Heparin drip Started on Coumadin Aerosol prn Supplement 02 DW family at BS Simone Faulkner MD Feb 04, 2018 20:39
[2018-02-05] VITALS (14 sets, daily range): BP systolic 142–190; BP diastolic 65–104; PULSE 79–94; RESP 17–24; TEMP 98.4–99; O2SAT 94–99
[2018-02-05] MEDS: CHLORHEXIDINE GLUCONATE 2 % 1 PACK (2 CLOTHS) TOP SCH (04:00)
[2018-02-05 05:16] LABS: AUTOMATED NEUTROPHIL # 5.1 TH/MM3 (1.8-7.7); BASOPHIL % 0.2 % (0.0-2.0); EOSINOPHIL # 0.1 TH/MM3 (0-0.4); EOSINOPHIL % 0.8 % (0.0-4.0); HEMATOCRIT 25.6 % (39.0-51.0); HEMOGLOBIN 8.7 GM/DL (13.0-17.0); LYMPHOCYTE # 0.6 TH/MM3 (1.0-4.8); MEAN CELL VOLUME 86.3 FL (80.0-100.0); MEAN CORPUSCULAR HEMOGLOBIN 29.4 PG (27.0-34.0); MONO % 8.3 % (0.0-8.0); MONOCYTE # 0.5 TH/MM3 (0-0.9); NEUT % 80.7 % (16.0-70.0); PLATELET COUNT 162 TH/MM3 (150-450); RED BLOOD COUNT 2.97 MIL/MM3 (4.50-5.90); RED CELL DISTRIBUTION WIDTH 16.1 % (11.6-17.2); WHITE BLOOD COUNT 6.3 TH/MM3 (4.0-11.0)
[2018-02-05 05:18] LABS: INTERNATIONAL NORMALIZED RATIO 2.2 RATIO; PROTHROMBIN TIME - PATIENT 22.2 SEC (9.8-11.6)
[2018-02-05 05:36] LABS: ALBUMIN 2.4 GM/DL (3.4-5.0); AST (GOT) 32 U/L (15-37); BICARBONATE 30.8 MEQ/L (21.0-32.0); BLOOD UREA NITROGEN 16 MG/DL (7-18); CALCIUM 8.8 MG/DL (8.5-10.1); CHLORIDE 108 MEQ/L (98-107); CREATININE 0.81 MG/DL (0.60-1.30); GLOMERULAR FILTRATION RATE 91 ML/MIN (>89); GLUCOSE,RANDOM 107 MG/DL (74-106); MAGNESIUM 1.7 MG/DL (1.5-2.5); SODIUM (NA) 144 MEQ/L (136-145)
[2018-02-05 05:42] LABS: ALKALINE PHOSPHATASE 81 U/L (45-117); ALT (GPT) 17 U/L (12-78); TOTAL BILIRUBIN ADULT 1.2 MG/DL (0.2-1.0); TOTAL PROTEIN 5.5 GM/DL (6.4-8.2)
--- NOTE | 2018-02-05 06:19 | RADRPT ---
EXAM DATE/TIME: 02/05/2018 04:32 [facility] COMPARISON: CHEST SINGLE AP, February 04, 2018, 9:51. INDICATIONS : Respiratory disease MEDICAL HISTORY : Chronic obstructive pulmonary disease. Hypertension Stroke SURGICAL HISTORY : None. ENCOUNTER: Subsequent ACUITY: 4 - 6 days PAIN SCORE: Non-responsive. LOCATION: Bilateral chest FINDINGS: A single view of the chest is obtained. Cardiomegaly. Left basilar subsegmental atelectasis . Right l angela clear The cardiomediastinal contours are unremarkable. Osseous structures are intact. CONCLUSION: Cardiomegaly and left basilar subsegmental atelectasis. Garret De Leon MD on February 05, 2018 at 6:17 Board Certified Radiologist. This report was verified electronically.
[2018-02-05] MEDS: SODIUM CHLORIDE 0.9% FLUSH 10 ML FLUSH IV FLUSH SCH ×2 (09:00→20:48)
[2018-02-05] MEDS: DOCUSATE SODIUM 50 MG/SENNA 8.6 MG TAB PO SCH ×2 (09:00→20:48)
[2018-02-05] MEDS: LANSOPRAZOLE SOLUTAB 30 MG TAB G-TUBE SCH (09:00)
--- NOTE | 2018-02-05 09:32 | HHI.PR ---
Review/Management Plan imp mod size left mca cva minimal petichial change on mri afib with cva at 1.8 inr i dw son percy and risk of recurrent cva not anticoagulated and risk of bleeding into brain inc on heparin but i feel he is at higher risk of recurrent cva from afib than bleeding into cva he needs to get on coumadin aissatou can he get of vent soon? iv hep started no bolus recheck ct in am 02/01/18 ct no major change no blood hb down a little on iv hep coumadin when able off vent when able stable neuro 02/02/18 stable await off vent watch h/h 02/03/18 doing well resp looks good plan is coumadin aissatou when cleared to eat he can get oob he was on 5mg at home so could probably start with 10mg first day then 5 aftert that and dc hep when inr>1.9 02/04/18 no agitation overnoc slept well repeat CT brain ordered on coumadin INR 2.2 today daily INR try and get oob today fu ct Diagnosis/Plan: Subjective Subjective Comments No acute events reported No headache No chest pain No dyspnea Active Medications Current Medications Medications (Trade) Dose Ordered Sig/Demetra Route Start Time Stop Time Status Last Admin (NS Flush) 2 ml UNSCH PRN IV FLUSH 01/30/18 23:15 (NS Flush) 2 ml BID IV FLUSH 01/31/18 09:00 02/05/18 09:00 (Tylenol) 650 mg Q6H PRN PO 01/30/18 23:15 02/03/18 16:45 (Prevacid Odt) 30 mg DAILY G-TUBE 01/31/18 09:00 02/04/18 09:00 (Zofran Inj) 4 mg Q6H PRN IV PUSH 01/30/18 23:15 01/31/18 20:26 (Albuterol Neb) 2.5 mg Q2HR NEB PRN INH 01/30/18 23:15 Miscellaneous Information 1 Q361D XX 01/30/18 23:15 01/30/18 23:15 (Chlorhexidine 2% Cloth) Taper DAILY@04 TOP 01/31/18 04:00 01/27/19 03:59 (Chlorhexidine 2% Cloth) 3 pack UNSCH PRN TOP 01/30/18 23:15 (Gifty-Colace) 1 tab BID PO 01/31/18 09:00 02/04/18 09:00 (Milk Of Magnesia Liq) 30 ml Q12H PRN PO 01/30/18 23:15 (Senokot) 17.2 mg Q12H PRN PO 01/30/18 23:15 (Dulcolax Supp) 10 mg DAILY PRN RECTAL 01/30/18 23:15 (Lactulose Liq) 30 ml DAILY PRN PO 01/30/18 23:15 (Brethine Inj) 1 mg UNSCH PRN SQ 01/31/18 01:15 Potassium Chloride 100 ml @ 50 mls/hr Q2H PRN IV 01/31/18 01:15 Potassium Chloride 100 ml @ 50 mls/hr Q2H PRN IV 01/31/18 01:15 (K-Lyte Cl Eff) 50 meq UNSCH PRN PO 01/31/18 01:15 Potassium Chloride 100 ml @ 25 mls/hr UNSCH PRN IV 01/31/18 01:15 Potassium Chloride 100 ml @ 50 mls/hr Q2H PRN IV 01/31/18 01:15 02/01/18 06:49 Magnesium Sulfate 4 gm/Sodium Chloride 100 ml @ 50 mls/hr UNSCH PRN IV 01/31/18 01:15 (Mag-Ox) 800 mg UNSCH PRN PO 01/31/18 01:15 Magnesium Sulfate 2 gm/Sodium Chloride 100 ml @ 50 mls/hr UNSCH PRN IV 01/31/18 01:15 (K-Phos) 2,000 mg Q4H PRN PO 01/31/18 01:15 Sodium Phosphate 30 mmol/Sodium Chloride 250 ml @ 42 mls/hr UNSCH PRN IV 01/31/18 01:15 01/31/18 17:07 (K-Phos) 2,000 mg UNSCH PRN PO/TUBE 01/31/18 01:15 Potassium Phosphate 30 mmol/ Sodium Chloride 260 ml @ 42 mls/hr UNSCH PRN IV 01/31/18 01:15 (Apresoline Inj) 20 mg Q4H PRN IV PUSH 02/02/18 17:30 02/04/18 19:32 Pharmacy Profile Note 0 ml @ 0 mls/hr UNSCH OTHER 02/03/18 10:45 (Coumadin) 4 mg DAILY@1600 PO 02/05/18 16:00 Allergies Allergies Coded Allergies allopurinol (Verified Allergy, Severe, Irritation, 01/31/18) Exam I&O / VS Vital Signs Date Time Temp Pulse Resp B/P (MAP) Pulse Ox O2 Delivery O2 Flow Rate FiO2 02/05/18 09:17 98 02/05/18 06:00 79 02/05/18 04:00 98.4 84 23 142/104 (117) 94 02/05/18 04:00 84 02/05/18 02:00 90 02/05/18 00:00 98.5 84 19 157/66 (96) 97 02/05/18 00:00 84 02/04/18 23:57 98 02/04/18 22:00 96 02/04/18 20:00 99.1 100 33 181/76 (111) 98 02/04/18 20:00 100 02/04/18 19:18 99 02/04/18 19:00 97 Room Air 02/04/18 18:00 92 02/04/18 16:00 92 02/04/18 16:00 98.8 87 20 131/60 (83) 98 02/04/18 14:00 90 02/04/18 12:00 98.7 90 18 157/61 (93) 98 02/04/18 12:00 90 02/04/18 10:00 90 Exam Comments moving le spontaneously and lue will say hello and track with eyes rue 0/5 Objective Micro and Labs Laboratory Tests Test 02/04/18 11:48 02/05/18 04:40 Activated Partial Thromboplast Time 39.5 White Blood Count 6.3 Red Blood Count 2.97 Hemoglobin 8.7 Hematocrit 25.6 Mean Corpuscular Volume 86.3 Mean Corpuscular Hemoglobin 29.4 Mean Corpuscular Hemoglobin Concent 34.0 Red Cell Distribution Width 16.1 Platelet Count 162 Mean Platelet Volume 8.0 Neutrophils (%) (Auto) 80.7 Lymphocytes (%) (Auto) 10.0 Monocytes (%) (Auto) 8.3 Eosinophils (%) (Auto) 0.8 Basophils (%) (Auto) 0.2 Neutrophils # (Auto) 5.1 Lymphocytes # (Auto) 0.6 Monocytes # (Auto) 0.5 Eosinophils # (Auto) 0.1 Basophils # (Auto) 0.0 CBC Comment DIFF FINAL Differential Comment Prothrombin Time 22.2 Prothromb Time International Ratio 2.2 Blood Urea Nitrogen 16 Creatinine 0.81 Random Glucose 107 Total Protein 5.5 Albumin 2.4 Calcium Level 8.8 Magnesium Level 1.7 Alkaline Phosphatase 81 Aspartate Amino Transf (AST/SGOT) 32 Alanine Aminotransferase (ALT/SGPT) 17 Total Bilirubin 1.2 Sodium Level 144 Potassium Level 3.6 Chloride Level 108 Carbon Dioxide Level 30.8 Anion Gap 5 Estimat Glomerular Filtration Rate 91 Date/Time Source Procedure Growth Status 02/02/18 09:20 Sputum Endotracheal Gram Stain - Final Complete 02/02/18 09:20 Sputum Endotracheal Sputum Culture - Final HEAVY GROWTH NORMAL RESPIRATORY CHANTELL Complete Thao Golden [facility] Feb 05, 2018 09:32
--- NOTE | 2018-02-05 09:40 | HHI.CCPN ---
Subjective Remarks/Hospital Course 82-year-old gentleman with past medical history of chronic atrial fibrillation on anticoagulation with warfarin, hypertension, hyperlipidemia, prior TIA who was transferred from [facility] [place] due to acute stroke. His had spoken with him around 12:30 on 01/29. When she returned home at 1:30 he was having difficulty speaking and right hemiplegia. He presented to [facility] [place] with right facial droop, right hemiplegia, leftward gaze, nonverbal. CT brain demonstrated hyperdense left M1 and M2 segments. He was not a candidate for systemic TPA due to INR of 1.8 at outside hospital. CTA demonstrated thromboembolism of M1 and M2 segments. CT perfusion demonstrated large acute left MCA infarct without surrounding ischemic penumbra. Consultation was made with neurology at [facility] who recommended medical management. Family requested aggressive therapy and case was discussed with Dr. Baum and neuroradiology and patient was transferred to [place] where he underwent thrombectomy by Dr. Shelby as family was accepting of increased risk of hemorrhage. There was difficulty achieving hemostasis at R groin site so he was taken emergently to OR where he underwent repair of R femoral artery by Dr. Ayala. He was intubated in specials by Dr. Ames. Intraoperatively he received 800 crystalloid, EBL 450 mL, UOP was 700. Dr. Ayala discussed with Dr. Baum postoperatively and [facility] has been called for admission. Patient remains intubated. 01/31: Appears more alert this morning. We will leave intubated because he will require sedation for MRI. Try to extubate after. 02/01: MRI completed, will start weaning trials. 02/02: Ct head yesterday showed evolving left sided stroke. Propofol held patient is awake follows commands from the left upper extremity. Flaccid on the right upper extremity. Moderate reinoso secretions from ET tube. Chest x-ray pending. Spontaneous breathing trials initiated 02/03: Extubated yesterday breathing comfortably. Globally aphasic. Moves LUE, follows commands on the same. Pleasant. Discussed with Dr. Baum lower blood pressure goal to 140-160. Start Coumadin once cleared by speech therapy 02/04: Episode of agitation early a.m., tried to get out of bed. Patient was given Haldol with improvement in agitation now sedated. Not following commands due to sedation but moving extremities except right upper. Possibly ICU delirium 02/05: Appears more lethargic today but wakes up to stimulation and follows commands on the left. Chest x-ray clear white count is normal. Did not receive any sedating medications overnight. I have requested ABG and CT of the head stat. Further recommendations based on results. INR is 2.2 Objective Vital Signs Date Time Temp Pulse Resp B/P (MAP) Pulse Ox O2 Delivery O2 Flow Rate FiO2 02/05/18 09:17 98 02/05/18 06:00 79 02/05/18 04:00 98.4 23 142/104 (117) 02/04/18 19:00 Room Air 02/03/18 21:12 21 02/03/18 07:00 2.00 Result Diagram: 02/05/1843902/05/18439 Objective Remarks GENERAL: Elderly patient who is on NC, appears more lethargic SKIN: Warm and dry. VASC: Right IJ central line in place HEAD: Atraumatic. Normocephalic. EYES: Pupils equal and round with pupils 3 mm and sluggishly reactive to 2 mm bilaterally. ENT: No nasal bleeding or discharge. Mucous membranes pink and moist. NECK: Trachea midline. No JVD. RIJ central line CARDIOVASCULAR: Irregularly irregular with rate in the 70s, A. fib on the monitor. No murmurs rubs or gallops. RESPIRATORY: CTAB. No accessory muscle use GASTROINTESTINAL: Abdomen soft, non-tender, nondistended. Bowel sounds present. MUSCULOSKELETAL: Extremities without clubbing, cyanosis. NEUROLOGICAL: More somnolent, received no sedation overnight. Global aphasia. Moves LUE, flaccid RUE. Spontaneously moving LLE with at least 3/5 strength. A/P Assessment and Plan NEURO: Acute ischemic stroke, L MCA Encephalopathy worsening Agitation/delirium Sensorineural hearing loss History of TIA in [address] of the head today 02/05/18 rule out edema/midline shift/hemorrhage Was not candidate for systemic TPA due to INR 1.8. S/p thrombectomy 01/30/18. MRI and CT shows evolving left sided stroke Neurocheck per ICU protocol, Hemodynamic monitoring Neurology Dr. Baum following On IV heparin, transitioning to Coumadin, INR 2.2 DC Heparin Haldol 2 mg IV q6hr PRN for agitation-Will discontinue 02/05 Agitation most likely secondary to ICU delirium, check UA PT/OT/Speech RESP: Acute respiratory failure-resolved Sleep apnea on CPAP at home On NC. Extubated 02/02. Protecting airway DuoNeb every 6 hours as needed EzPAP, Acapella Use home CPAP CV: Hypertension Hyperlipidemia Chronic atrial fibrillation on chronic anticoagulation with warfarin Chronic heart failure with preserved ejection fraction Holding antihypertensive medications. Blood pressure target to 140-160, discussed with Dr. Baum Right IJ central venous line DC today S/p R femoral artery repair 01/30, Dr. Ayala GI: Speech therapy consult for swallow eval, diet per recommendation. NPO until patient is more awake FEN/RENAL: Chronic kidney disease stage IV Monitor intake and output via [place]. Monitor electrolytes. Replace as indicated. ID: Monitor for signs and symptoms of infection HEME: On chronic anti-coagulation with warfarin DC IV heparin. Warfarin pharmacy to dose, INR therapeutic at 2.2 ENDO: Hypothyroidism Normal TSH. Continue Synthroid. MSK: Gout Resume appropriate meds. Med rec pending. PROPH: SCDs for DVT prophylaxis.INR 2.2 on coumadin. Lansoprazole for stress ulcer prophylaxis. ACCESS: Left radial art line placed in OR 01/30/18 DCd 02/02/18. Right IJ central venous line placed 01/31/18-DC today 02/05/18 Overall impression: Patient appears more lethargic somnolent. CT of the head stat ordered to rule out increasing edema/intracranial hemorrhage. Protecting airway ABG acceptable, extubated 02/02/18 tolerating well. Continue ICU care due to agitation/delirium. Remains critical due to acute change in mental status Samson Chicas MD Feb 05, 2018 09:40
--- NOTE | 2018-02-05 10:32 | RADRPT ---
EXAM DATE/TIME: 02/05/2018 09:52 [facility] COMPARISON: MRI BRAIN W/O CONTRAST, January 31, 2018, 11:29. CT BRAIN W/O CONTRAST, January 31, 2018, 12:03. CT BRA IN W/O CONTRAST, February 01, 2018, 4:41. INDICATIONS : Petechial hemorrhage RADIATION DOSE: 56.35 CTDIvol (mGy) ; Patient motion MEDICAL HISTORY : Stroke. Hypertension. Cardiovascular disease SURGICAL HISTORY : None. ENCOUNTER: Subsequent ACUITY: 4 - 6 days PAIN SCALE: Non-responsive LOCATION: cranial TECHNIQUE: Multiple contiguous axial images were obtained of the head. Using automated exposure control and adj ustment of the mA and/or kV according to patient size, radiation dose was kept as low as reasonably a chievable to obtain optimal diagnostic quality images. DICOM format image data is available electro nically for review and comparison. FINDINGS: There is mild generalized atrophy. Ventricles are prominent but within the range of expected given th e degree of atrophy. There is a stable periventricular white matter low attenuation. There are areas of low density in the left frontoparietal high convexity, left parietal mid convexity, and left poste rior temporal lobes. These areas appear to represent cytotoxic edema and are lower in density than pr esent previously, as expected. There is also an area of low density in the left occipital lobe which is also more well defined and contains a central area of mild increased density. There is no midline shift or herniation. No extra-axial fluid collection is present. CONCLUSION: 1. Expected evolution of the left parietal, temporal, and occipital lobe edema which is now lower in density and more well-defined. 2. There is subtle increased density associated with the left posterior occipital edema which could r epresent subtle blood products. Suggest attention to this on followup imaging. Juan Francisco Wiley MD on February 05, 2018 at 10:22 Board Certified Radiologist. This report was verified electronically.
[2018-02-05 12:08] LABS: BACTERIA, URINE RARE /hpf; BILIRUBIN, URINE NEG (NEG); BLOOD, URINE SMALL (NEG); GLUCOSE,URINE NEG (NEG); KETONE, URINE TRACE mg/dL (NEG); MUCUS URINE FEW /lpf (OCC); NITRITE,URINE NEG (NEG); PH, URINE 7.5 (5.0-8.5); SPERM, URINE MANY; URINE COLOR YELLOW (YELLW/STRAW); URINE LEUKOCYTE ESTERASE NEG (NEG)
--- NOTE | 2018-02-05 12:09 | RADRPT ---
EXAM DATE/TIME: 02/05/2018 11:21 [facility] COMPARISON: CT BRAIN W/O CONTRAST, February 05, 2018, 9:52. MRI BRAIN W/O CONTRAST, January, 11:29. INDICATIONS : CVA. MEDICAL HISTORY : Hypertension. Congestive heart failure. Chronic obstructive pulmonary disease. Chronic kidney disease and atrial fibrillation. SURGICAL HISTORY : Thrombectomy, tubes in ears and cataracts. ENCOUNTER: Subsequent ACUITY: 1 day PAIN SCORE: 0/10 LOCATION: Head. TECHNIQUE: Multiplanar, multisequence MRI of the brain was performed without contrast. FINDINGS: Examination again demonstrates restricted diffusion in the left temporal, occipital and mid and poste rior parietal lobes as well as the left external capsule and caudate similar to previous examination. There is associated edema and sulcal effacement without midline shift. Region of increased density o n CT exam corresponds to hypointensity on gradient echo imaging consistent with blood products. Focal regions of hemosiderin deposition in the left parietal lobe have resolved. Remainder of examination is stable. Ventricles are stable in size without evidence of hydrocephalus. No evidence for restricte d diffusion in the right cerebral hemisphere. Cerebellum and brainstem are intact. CONCLUSION: 1. Continued evolution of left hemispheric infarcts with limited apparent focal hemorrhage in the lef t posterior occipital infarct. No significant mass effect or herniation. Grabiel Shelby MD on February 05, 2018 at 11:51 Board Certified Radiologist. This report was verified electronically.
[2018-02-05] MEDS ORDERED: WARFARIN SOD 4 MG TAB PO SCH (16:00)
--- NOTE | 2018-02-05 19:46 | HHI.PR ---
Subjective Remarks 82 YO Male with COPD,RUBEN,AF,CVA, s/p Clot removal On NC Speech garbled but family able to understand him Was more lethargic ABG no sig resp acidosis Using his own CPAP machine Objective Vital Signs Vital Signs Date Time Temp Pulse Resp B/P (MAP) Pulse Ox O2 Delivery O2 Flow Rate FiO2 02/05/18 09:17 98 02/05/18 08:00 81 02/05/18 07:00 97 02/05/18 06:00 79 02/05/18 04:00 98.4 84 23 142/104 (117) 94 02/05/18 04:00 84 02/05/18 02:00 90 02/05/18 00:00 98.5 84 19 157/66 (96) 97 02/05/18 00:00 84 02/04/18 23:57 98 02/04/18 22:00 96 02/04/18 20:00 99.1 100 33 181/76 (111) 98 02/04/18 20:00 100 I/O 02/04/18 02/04/18 02/04/18 02/05/18 02/05/18 02/05/18 07:00 15:00 23:00 07:00 15:00 23:00 Intake Total 120 ml Output Total 470 ml Balance -350 ml Intake Oral 120 ml Output Urine Total 470 ml # Voids 2 4 # Bowel Movements 0 4 Result Diagram: 02/05/1843902/05/18439 Objective Remarks GENERAL: MBMN Male, NAD SKIN: Warm and dry. HEAD: Normocephalic. EYES: No scleral icterus. No injection or drainage. NECK: Supple, trachea midline. No JVD or lymphadenopathy. CARDIOVASCULAR: Regular rate and rhythm without murmurs, gallops, or rubs. RESPIRATORY: Breath sounds equal bilaterally. No accessory muscle use. GASTROINTESTINAL: Abdomen soft, non-tender, nondistended. MUSCULOSKELETAL: No cyanosis, or edema. Weakness RUE BACK: Nontender without obvious deformity. No CVA tenderness. A/P Assessment and Plan IMPRESSION: 1. Respiratory failure, status post extubation. 2. Chronic obstructive pulmonary disease. 3. Obstructive sleep apnea. 4. Cerebrovascular accident, status post mechanical thrombectomy. 5. Hypertension. PLAN: Coumadin, monitor INR Aerosol prn Supplement 02 CPAP at night for RUBEN DW family at [facility] Simone Faulkner MD Feb 05, 2018 19:46
--- NOTE | 2018-02-05 21:02 | MG ---
cc: Navi Brown MD EEG RECORD #[id number] DATE OF : 1935 Moderate amount of myogenic artifact bilateral frontotemporal regions. Mild asymmetric left frontal slowing noted. Theta delta frequencies 3-6 Hz, 20-50 microvolts. Reduction in artifact on the ____ of the recording. Occasional tiny sharp transients left frontotemporal region. ____ isolated phase reversals. Good EEG variability and reactivity. Single lead EKG showing some irregularity. Reduced driving with photic stimulation. INTERPRETATION: Mild asymmetric left hemispheric slowing. Mild encephalopathy. Cardiac arrhythmia. Clinical correlation. Navi Brown MD MG/rt , 08:45 PM , 09:01 PM
[2018-02-06] VITALS (12 sets, daily range): BP systolic 147–181; BP diastolic 63–77; PULSE 82–100; RESP 17–24; TEMP 97.5–98.9; O2SAT 95–100
[2018-02-06 05:38] LABS: INTERNATIONAL NORMALIZED RATIO 2.2 RATIO; PROTHROMBIN TIME - PATIENT 22.6 SEC (9.8-11.6)
--- NOTE | 2018-02-06 07:32 | HHI.CCPN ---
Subjective Remarks/Hospital Course 82-year-old gentleman with past medical history of chronic atrial fibrillation on anticoagulation with warfarin, hypertension, hyperlipidemia, prior TIA who was transferred from [facility] due to acute stroke. His had spoken with him around 12:30 on 01/29. When she returned home at 1:30 he was having difficulty speaking and right hemiplegia. He presented to [facility] with right facial droop, right hemiplegia, leftward gaze, nonverbal. CT brain demonstrated hyperdense left M1 and M2 segments. He was not a candidate for systemic TPA due to INR of 1.8 at outside hospital. CTA demonstrated thromboembolism of M1 and M2 segments. CT perfusion demonstrated large acute left MCA infarct without surrounding ischemic penumbra. Consultation was made with neurology at [facility] who recommended medical management. Family requested aggressive therapy and case was discussed with Dr. Baum and neuroradiology and patient was transferred to [place] where he underwent thrombectomy by Dr. Shelby as family was accepting of increased risk of hemorrhage. There was difficulty achieving hemostasis at R groin site so he was taken emergently to OR where he underwent repair of R femoral artery by Dr. Ayala. He was intubated in specials by Dr. Ames. Intraoperatively he received 800 crystalloid, EBL 450 mL, UOP was 700. Dr. Ayala discussed with Dr. Baum postoperatively and [facility] has been called for admission. Patient remains intubated. 01/31: Appears more alert this morning. We will leave intubated because he will require sedation for MRI. Try to extubate after. 02/01: MRI completed, will start weaning trials. 02/02: Ct head yesterday showed evolving left sided stroke. Propofol held patient is awake follows commands from the left upper extremity. Flaccid on the right upper extremity. Moderate reinoso secretions from ET tube. Chest x-ray pending. Spontaneous breathing trials initiated 02/03: Extubated yesterday breathing comfortably. Globally aphasic. Moves LUE, follows commands on the same. Pleasant. Discussed with Dr. Baum lower blood pressure goal to 140-160. Start Coumadin once cleared by speech therapy 02/04: Episode of agitation early a.m., tried to get out of bed. Patient was given Haldol with improvement in agitation now sedated. Not following commands due to sedation but moving extremities except right upper. Possibly ICU delirium 02/05: Appears more lethargic today but wakes up to stimulation and follows commands on the left. Chest x-ray clear white count is normal. Did not receive any sedating medications overnight. I have requested ABG and CT of the head stat. Further recommendations based on results. INR is 2.2 02/06: agitated overnight. day/night orientation has been difficult. somnolent during the day and aroused at night. wbc normal. neuro exam stable, and somewhat improving this morning. inr stable at 2.2. Objective Vital Signs Date Time Temp Pulse Resp B/P (MAP) Pulse Ox O2 Delivery O2 Flow Rate FiO2 02/06/18 06:00 82 02/06/18 04:00 98.5 21 181/77 (111) 100 02/05/18 20:00 Room Air 02/03/18 21:12 21 02/03/18 07:00 2.00 Intake and Output 02/06/18 02/06/18 02/07/18 08:00 16:00 00:00 Intake Total 240 ml Balance 240 ml Result Diagram: 02/05/18 0440 02/05/18 0440 Other Results Laboratory Tests Test 02/05/18 09:20 Blood Gas Puncture Site LT RADIAL Blood Gas Patient Temperature 98.6 Blood Gas HCO3 31 mmol/L (22-26) Blood Gas Base Excess 6.7 mmol/L (-2-2) Blood Gas Oxygen Saturation 94 % (90-100) Arterial Blood pH 7.47 (7.380-7.420) Arterial Blood Partial Pressure CO2 43 mmHg (38-42) Arterial Blood Partial Pressure O2 79 mmHg (61-120) Arterial Blood Oxygen Content 11.6 Vol % (12.0-20.0) Arterial Blood Carboxyhemoglobin 2.3 % (0-4) Arterial Blood Methemoglobin 0.9 % (0-2) Blood Gas Hemoglobin 8.7 G/DL (12.0-16.0) Oxygen Delivery Device RA Blood Gas Inspired Oxygen 21 % Objective Remarks GENERAL: Elderly patient who is on NC, arousable. intermittently agitated. SKIN: Warm and dry. VASC: Right IJ central line in place HEAD: Atraumatic. Normocephalic. EYES: Pupils equal and round with pupils 3 mm and sluggishly reactive to 2 mm bilaterally. ENT: No nasal bleeding or discharge. Mucous membranes pink and moist. NECK: Trachea midline. No JVD. CARDIOVASCULAR: Irregularly irregular, A. fib on the monitor. RESPIRATORY: equal chest rise. nc o2. No accessory muscle use GASTROINTESTINAL: Abdomen soft, non-tender, nondistended. MUSCULOSKELETAL: Extremities without clubbing, cyanosis. NEUROLOGICAL: RASS -2, occasionally +1. Global aphasia. Moves LUE, flaccid RUE. Spontaneously moving LLE with at least 4-/5 strength. A/P Assessment and Plan Assessment: 82yM s/p left MCA CVA, course complicated by small intra-infarct hemorrhagic conversion. plan to hold anticoagulation. would recommend repeat CT either friday/friday and then if stable, very slow transition back to full anticoagulation. do not want to impede inpatient rehab efforts, and would look towards rehab early next week if continues to clinically improve. will add melatonin for sleep and would attempt to avoid more sedating delirium agents. need to be aggressive with non-pharmacologic day/night orientation. keep in ICU. high risk for further morbidity. NEURO: Acute ischemic stroke, L MCA Encephalopathy worsening Agitation/delirium Sensorineural hearing loss History of TIA in 2009 CT 02/05: small area of hemorrhagic conversion. Was not candidate for systemic TPA due to INR 1.8. S/p thrombectomy 01/30/18. MRI and CT shows evolving left sided stroke Neurocheck per ICU protocol, Hemodynamic monitoring Neurology Dr. Baum following hold anticoagulation. INR still 2.2 Haldol 2 mg IV q6hr PRN for agitation-Will discontinue 02/05 Agitation most likely secondary to ICU delirium PT/OT/Speech add melatonin for sleep. RESP: Acute respiratory failure-resolved Sleep apnea on CPAP at home On NC. Extubated 02/02. Protecting airway DuoNeb every 6 hours as needed EzPAP, Acapella Use home CPAP CV: Hypertension Hyperlipidemia Chronic atrial fibrillation on chronic anticoagulation with warfarin Chronic heart failure with preserved ejection fraction Holding antihypertensive medications. Blood pressure target to 140-160, discussed with Dr. Baum S/p R femoral artery repair 01/30, Dr. Ayala GI: Speech therapy consult for swallow eval, diet per recommendation. FEN/RENAL: Chronic kidney disease stage IV Monitor intake and output via condom cath. Monitor electrolytes. Replace as indicated. ID: Monitor for signs and symptoms of infection HEME: On chronic anti-coagulation with warfarin holding anticoagulation. check daily INR. ENDO: Hypothyroidism Normal TSH. Continue Synthroid. MSK: Gout Resume appropriate meds. Med rec pending. PROPH: SCDs for DVT prophylaxis.INR 2.2. hold additional anticoag for now. Lansoprazole for stress ulcer prophylaxis. ACCESS: Rahat Randle MD Feb 06, 2018 07:32
[2018-02-06] MEDS: SODIUM CHLORIDE 0.9% FLUSH 10 ML FLUSH IV FLUSH SCH ×2 (09:00→20:45)
--- NOTE | 2018-02-06 09:11 | HHI.PR ---
Review/Management Plan imp mod size left mca cva minimal petichial change on mri afib with cva at 1.8 inr i dw son percy and risk of recurrent cva not anticoagulated and risk of bleeding into brain inc on heparin but i feel he is at higher risk of recurrent cva from afib than bleeding into cva he needs to get on coumadin aissatou can he get of vent soon? iv hep started no bolus recheck ct in am 02/01/18 ct no major change no blood hb down a little on iv hep coumadin when able off vent when able stable neuro 02/02/18 stable await off vent watch h/h 02/03/18 doing well resp looks good plan is coumadin aissatou when cleared to eat he can get oob he was on 5mg at home so could probably start with 10mg first day then 5 aftert that and dc hep when inr>1.9 02/04/18 no agitation overnoc slept well repeat CT brain ordered on coumadin INR 2.2 today daily INR try and get oob today fu ct 02/06/18 imp some agitation overnoc CT brain showed evolving l parietal infarct MRI brain showed evolving l parietal and small area of hemorrhage left posterior occipital coumadin was held, INR 2.2 today risk of no anticoag is another infarct follow INR closely EEG showed some asymmetric left hemispheric slowing and encephalopathy oob in chair today, rec PT 7 days a week fu Diagnosis/Plan: Subjective Subjective Comments No acute events reported No headache No chest pain No dyspnea Active Medications Current Medications Medications (Trade) Dose Ordered Sig/Demetra Route Start Time Stop Time Status Last Admin (NS Flush) 2 ml UNSCH PRN IV FLUSH 01/30/18 23:15 (NS Flush) 2 ml BID IV FLUSH 01/31/18 09:00 02/05/18 20:48 (Tylenol) 650 mg Q6H PRN PO 01/30/18 23:15 02/03/18 16:45 (Prevacid Odt) 30 mg DAILY G-TUBE 01/31/18 09:00 02/04/18 09:00 (Zofran Inj) 4 mg Q6H PRN IV PUSH 01/30/18 23:15 01/31/18 20:26 (Albuterol Neb) 2.5 mg Q2HR NEB PRN INH 01/30/18 23:15 Miscellaneous Information 1 Q361D XX 01/30/18 23:15 01/30/18 23:15 (Chlorhexidine 2% Cloth) Taper DAILY@04 TOP 01/31/18 04:00 01/27/19 03:59 (Chlorhexidine 2% Cloth) 3 pack UNSCH PRN TOP 01/30/18 23:15 (Gifty-Colace) 1 tab BID PO 01/31/18 09:00 02/04/18 09:00 (Milk Of Magnesia Liq) 30 ml Q12H PRN PO 01/30/18 23:15 (Senokot) 17.2 mg Q12H PRN PO 01/30/18 23:15 (Dulcolax Supp) 10 mg DAILY PRN RECTAL 01/30/18 23:15 (Lactulose Liq) 30 ml DAILY PRN PO 01/30/18 23:15 (Brethine Inj) 1 mg UNSCH PRN SQ 01/31/18 01:15 Potassium Chloride 100 ml @ 50 mls/hr Q2H PRN IV 01/31/18 01:15 Potassium Chloride 100 ml @ 50 mls/hr Q2H PRN IV 01/31/18 01:15 (K-Lyte Cl Eff) 50 meq UNSCH PRN PO 01/31/18 01:15 Potassium Chloride 100 ml @ 25 mls/hr UNSCH PRN IV 01/31/18 01:15 Potassium Chloride 100 ml @ 50 mls/hr Q2H PRN IV 01/31/18 01:15 02/01/18 06:49 Magnesium Sulfate 4 gm/Sodium Chloride 100 ml @ 50 mls/hr UNSCH PRN IV 01/31/18 01:15 (Mag-Ox) 800 mg UNSCH PRN PO 01/31/18 01:15 Magnesium Sulfate 2 gm/Sodium Chloride 100 ml @ 50 mls/hr UNSCH PRN IV 01/31/18 01:15 (K-Phos) 2,000 mg Q4H PRN PO 01/31/18 01:15 Sodium Phosphate 30 mmol/Sodium Chloride 250 ml @ 42 mls/hr UNSCH PRN IV 01/31/18 01:15 01/31/18 17:07 (K-Phos) 2,000 mg UNSCH PRN PO/TUBE 01/31/18 01:15 Potassium Phosphate 30 mmol/ Sodium Chloride 260 ml @ 42 mls/hr UNSCH PRN IV 01/31/18 01:15 (Apresoline Inj) 20 mg Q4H PRN IV PUSH 02/02/18 17:30 02/04/18 19:32 (Melatonin) 5 mg HS PO 02/06/18 21:00 Allergies Allergies Coded Allergies allopurinol (Verified Allergy, Severe, Irritation, 01/31/18) Exam I&O / VS Vital Signs Date Time Temp Pulse Resp B/P (MAP) Pulse Ox O2 Delivery O2 Flow Rate FiO2 02/06/18 06:00 82 02/06/18 04:00 90 02/06/18 04:00 98.5 90 21 181/77 (111) 100 02/06/18 02:00 88 02/06/18 00:00 100 02/06/18 00:00 98.7 100 20 153/70 (97) 96 02/05/18 22:00 94 02/05/18 20:00 99.0 87 24 178/74 (108) 99 02/05/18 20:00 99 Room Air 02/05/18 20:00 87 02/05/18 19:56 97 02/05/18 18:00 92 02/05/18 16:00 90 02/05/18 16:00 98.7 90 20 146/65 (92) 98 02/05/18 14:00 82 02/05/18 12:00 98.6 82 17 190/79 (116) 99 02/05/18 12:00 82 02/05/18 10:00 82 02/05/18 09:17 98 Exam Comments moves lower ext and lue spontaneously and on command will say hello and track with eyes rue 0/5 Objective Micro and Labs Laboratory Tests Test 02/05/18 09:20 02/05/18 11:00 02/06/18 04:30 Blood Gas Puncture Site LT RADIAL Blood Gas Patient Temperature 98.6 Blood Gas HCO3 31 Blood Gas Base Excess 6.7 Blood Gas Oxygen Saturation 94 Arterial Blood pH 7.47 Arterial Blood Partial Pressure CO2 43 Arterial Blood Partial Pressure O2 79 Arterial Blood Oxygen Content 11.6 Arterial Blood Carboxyhemoglobin 2.3 Arterial Blood Methemoglobin 0.9 Blood Gas Hemoglobin 8.7 Oxygen Delivery Device RA Blood Gas Inspired Oxygen 21 Urine Color YELLOW Urine Turbidity CLEAR Urine pH 7.5 Urine Specific [place] 1.015 Urine Protein TRACE Urine Glucose (UA) NEG Urine Ketones TRACE Urine Occult Blood SMALL Urine Nitrite NEG Urine Bilirubin NEG Urine Urobilinogen 2.0 Urine Leukocyte Esterase NEG Urine RBC 19 Urine WBC 3 Urine Bacteria RARE Urine Mucus FEW Urine Sperm MANY Microscopic Urinalysis Comment CATH-CULTURE IND Prothrombin Time 22.6 Prothromb Time International Ratio 2.2 Date/Time Source Procedure Growth Status 02/02/18 09:20 Sputum Endotracheal Gram Stain - Final Complete 02/02/18 09:20 Sputum Endotracheal Sputum Culture - Final HEAVY GROWTH NORMAL RESPIRATORY CHANTELL Complete 02/05/18 11:00 Urine Catheterized Urine Urine Culture Pending Received Thao Golden Feb 06, 2018 09:11
[2018-02-06] MEDS: DOCUSATE SODIUM 50 MG/SENNA 8.6 MG TAB PO SCH ×2 (09:33→19:50)
[2018-02-06] MEDS: LANSOPRAZOLE SOLUTAB 30 MG TAB G-TUBE SCH (09:33)
--- NOTE | 2018-02-06 14:09 | PD.CAR.PN ---
CVT Progress Note Subjective/Hospital Course: 01/31/2018 Status post repair of the right femoral artery Incision clean and dry Excellent distal pulses DESHAWN drainage decreased and minimal at this time Patient can be heparinized and anticoagulated in any safely from vascular point 02/01/2018 Patient doing okay from vascular point Groin incision clean and dry Dressing change daily Excellent distal pulses Patient can be safely anticoagulated from my point as above noted Nothing to add to care 02/02/2018 Incision of the right groin is clean and dry Dry dressing daily Excellent distal pulses neurovascular acute deficit May shower and get incision wet soap and water Asad will remain in place for about 2 weeks total 02/06/2019 Right groin incision clean and dry Expected to be a little hard because of the initial hematoma. Most of the firmness is the region of closure and approximation of the tissues Nothing to add to care Objective: Vital Signs Date Time Temp Pulse Resp B/P (MAP) Pulse Ox O2 Delivery O2 Flow Rate FiO2 02/06/18 06:00 82 02/06/18 04:00 90 02/06/18 04:00 98.5 90 21 181/77 (111) 100 02/06/18 02:00 88 02/06/18 00:00 100 02/06/18 00:00 98.7 100 20 153/70 (97) 96 02/05/18 22:00 94 02/05/18 20:00 99.0 87 24 178/74 (108) 99 02/05/18 20:00 99 Room Air 02/05/18 20:00 87 02/05/18 19:56 97 02/05/18 18:00 92 02/05/18 16:00 90 02/05/18 16:00 98.7 90 20 146/65 (92) 98 Labs: Laboratory Tests Test 02/06/18 04:30 Prothrombin Time 22.6 SEC (9.8-11.6) Prothromb Time International Ratio 2.2 RATIO Result Diagram: 02/05/1843902/05/18439 Anusha Ayala MD Feb 06, 2018 14:09
--- NOTE | 2018-02-06 18:35 | HHI.PR ---
Subjective Remarks 82 YO Male with COPD,RUBEN,AF,CVA, s/p Clot removal On NC Speech garbled but family able to understand him More awake and cooperative Son at Had BM in commode Objective Vital Signs Vital Signs Date Time Temp Pulse Resp B/P (MAP) Pulse Ox O2 Delivery O2 Flow Rate FiO2 02/06/18 06:00 82 02/06/18 04:00 90 02/06/18 04:00 98.5 90 21 181/77 (111) 100 02/06/18 02:00 88 02/06/18 00:00 100 02/06/18 00:00 98.7 100 20 153/70 (97) 96 02/05/18 22:00 94 02/05/18 20:00 99.0 87 24 178/74 (108) 99 02/05/18 20:00 99 Room Air 02/05/18 20:00 87 02/05/18 19:56 97 I/O 02/05/18 02/05/18 02/05/18 02/06/18 02/06/18 02/06/18 07:00 15:00 23:00 07:00 15:00 23:00 Intake Total 240 ml 240 ml Output Total 500 ml Balance -260 ml 240 ml Intake Oral 240 ml 240 ml Output Urine Total 500 ml # Voids 4 2 3 # Bowel Movements 4 4 0 Result Diagram: 02/05/1843902/05/18439 Objective Remarks GENERAL: MBMN Male, NAD SKIN: Warm and dry. HEAD: Normocephalic. EYES: No scleral icterus. No injection or drainage. NECK: Supple, trachea midline. No JVD or lymphadenopathy. CARDIOVASCULAR: Regular rate and rhythm without murmurs, gallops, or rubs. RESPIRATORY: Breath sounds equal bilaterally. No accessory muscle use. GASTROINTESTINAL: Abdomen soft, non-tender, nondistended. MUSCULOSKELETAL: No cyanosis, or edema. Weakness RUE BACK: Nontender without obvious deformity. No CVA tenderness. A/P Assessment and Plan IMPRESSION: 1. Respiratory failure, status post extubation. 2. Chronic obstructive pulmonary disease. 3. Obstructive sleep apnea. 4. Cerebrovascular accident, status post mechanical thrombectomy. 5. Hypertension. PLAN: Coumadin, monitor INR Aerosol prn Supplement 02 CPAP at night for RUBEN DW family at Simone Faulkner MD Feb 06, 2018 18:35
[2018-02-06] MEDS: MELATONIN 5 MG TAB PO SCH (20:45)
[2018-02-07] VITALS (7 sets, daily range): BP systolic 146–191; BP diastolic 63–82; PULSE 79–119; RESP 21–26; TEMP 98.6–102.4; O2SAT 96–98
[2018-02-07] MEDS: CHLORHEXIDINE GLUCONATE 2 % 1 PACK (2 CLOTHS) TOP SCH (04:00)
[2018-02-07 05:38] LABS: HEMOGLOBIN 9.2 GM/DL (13.0-17.0); MEAN CELL VOLUME 86.7 FL (80.0-100.0); MEAN CORPUSCULAR HEMOGLOBIN 29.4 PG (27.0-34.0); MEAN CORPUSCULAR HGB CONC 33.9 % (32.0-36.0); MEAN PLATELET VOLUME 7.7 FL (7.0-11.0); PLATELET COUNT 181 TH/MM3 (150-450); RED BLOOD COUNT 3.12 MIL/MM3 (4.50-5.90); RED CELL DISTRIBUTION WIDTH 16.4 % (11.6-17.2); WHITE BLOOD COUNT 6.2 TH/MM3 (4.0-11.0)
[2018-02-07 05:48] LABS: INTERNATIONAL NORMALIZED RATIO 1.7 RATIO; PROTHROMBIN TIME - PATIENT 17.3 SEC (9.8-11.6)
[2018-02-07 05:58] LABS: BICARBONATE 29.8 MEQ/L (21.0-32.0); CALCIUM 8.7 MG/DL (8.5-10.1); CREATININE 0.84 MG/DL (0.60-1.30)
[2018-02-07] MEDS: LEVOTHYROXINE SODIUM 75 MCG TAB PO SCH (07:00)
[2018-02-07] MEDS: SODIUM CHLORIDE 0.9% FLUSH 10 ML FLUSH IV FLUSH SCH ×2 (09:00→21:35)
[2018-02-07] MEDS: LANSOPRAZOLE SOLUTAB 30 MG TAB G-TUBE SCH (09:00)
[2018-02-07] MEDS: DOCUSATE SODIUM 50 MG/SENNA 8.6 MG TAB PO SCH ×2 (09:00→21:36)
[2018-02-07] MEDS ORDERED: TIOTROPIUM BROMIDE 18 MCG INH INH SCH (09:00)
--- NOTE | 2018-02-07 09:48 | RADRPT ---
EXAM DATE/TIME: 02/07/2018 09:03 [place] COMPARISON: MRI BRAIN W/O CONTRAST, February 05, 2018, 11:21. INDICATIONS : Decreased level of consciousnes MEDICAL HISTORY : Chronic obstructive pulmonary disease. Congestive heart failure. Hypertension. SURGICAL HISTORY : Thrombectomy. ENCOUNTER: Initial ACUITY: 1 day PAIN SCORE: 0/10 LOCATION: cranial TECHNIQUE: Multiplanar, multisequence MRI of the brain was performed without contrast. FINDINGS: Marked central and cortical actually the periventricular white matter changes. Evolving left parieta l occipital stroke with some improvement. There are no new areas of ischemia. There is minimal pare nchymal hemorrhage evident. The size of this hemorrhage is slightly larger but still well-defined. Ventricle size is appropriate. The right hemisphere is stable. Periventricular white matter changes extend into the posterior fossa. CONCLUSION: Small discrete area of hemorrhage in the core of the left infarct. This measures 2.74 cm. Fabrice Tom MD FACR on February 07, 2018 at 9:43 Board Certified Radiologist. This report was verified electronically.
--- NOTE | 2018-02-07 11:00 | HHI.PR ---
Review/Management Plan iv hep started no bolus recheck ct in am 02/01/18 ct no major change no blood hb down a little on iv hep coumadin when able off vent when able stable neuro 02/02/18 stable await off vent watch h/h 02/03/18 doing well resp looks good plan is coumadin aissatou when cleared to eat he can get oob he was on 5mg at home so could probably start with 10mg first day then 5 aftert that and dc hep when inr>1.9 02/04/18 no agitation overnoc slept well repeat CT brain ordered on coumadin INR 2.2 today daily INR try and get oob today fu ct 02/06/18 imp some agitation overnoc CT brain showed evolving l parietal infarct MRI brain showed evolving l parietal and small area of hemorrhage left posterior occipital coumadin was held, INR 2.2 today risk of no anticoag is another infarct follow INR closely EEG showed some asymmetric left hemispheric slowing and encephalopathy oob in chair today, rec PT 7 days a week fu Diagnosis/Plan: (1) Acute ischemic left MCA stroke ICD Codes: I63.512 - Cerebral infarction due to unspecified occlusion or stenosis of left middle cerebral artery Plan: mri brain reviewed ich looks alittle larger to me was on hep gtt and then coumadin post-stroke followed by ich recs hold oac Dr. Galarza can consider when he see's the pt p.t./s.t. d/w pt's daughter (2) Warfarin anticoagulation ICD Codes: Z79.01 - correction (current) use of anticoagulants Status: Chronic (3) Atrial fibrillation ICD Codes: I48.91 - Unspecified atrial fibrillation Status: Chronic (4) HTN (hypertension) ICD Codes: I10 - Essential (primary) hypertension Subjective Subjective Comments No acute events reported Active Medications Current Medications Medications (Trade) Dose Ordered Sig/Demetra Route Start Time Stop Time Status Last Admin (NS Flush) 2 ml UNSCH PRN IV FLUSH 01/30/18 23:15 (NS Flush) 2 ml BID IV FLUSH 01/31/18 09:00 02/06/18 20:45 (Tylenol) 650 mg Q6H PRN PO 01/30/18 23:15 02/03/18 16:45 (Prevacid Odt) 30 mg DAILY G-TUBE 01/31/18 09:00 02/06/18 09:33 (Zofran Inj) 4 mg Q6H PRN IV PUSH 01/30/18 23:15 01/31/18 20:26 (Albuterol Neb) 2.5 mg Q2HR NEB PRN INH 01/30/18 23:15 02/06/18 22:01 Miscellaneous Information 1 Q361D XX 01/30/18 23:15 01/30/18 23:15 (Chlorhexidine 2% Cloth) Taper DAILY@04 TOP 01/31/18 04:00 01/27/19 03:59 (Chlorhexidine 2% Cloth) 3 pack UNSCH PRN TOP 01/30/18 23:15 (Gifty-Colace) 1 tab BID PO 01/31/18 09:00 02/06/18 09:33 (Milk Of Magnesia Liq) 30 ml Q12H PRN PO 01/30/18 23:15 (Senokot) 17.2 mg Q12H PRN PO 01/30/18 23:15 (Dulcolax Supp) 10 mg DAILY PRN RECTAL 01/30/18 23:15 (Lactulose Liq) 30 ml DAILY PRN PO 01/30/18 23:15 (Brethine Inj) 1 mg UNSCH PRN SQ 01/31/18 01:15 Potassium Chloride 100 ml @ 50 mls/hr Q2H PRN IV 01/31/18 01:15 Potassium Chloride 100 ml @ 50 mls/hr Q2H PRN IV 01/31/18 01:15 (K-Lyte Cl Eff) 50 meq UNSCH PRN PO 01/31/18 01:15 Potassium Chloride 100 ml @ 25 mls/hr UNSCH PRN IV 01/31/18 01:15 Potassium Chloride 100 ml @ 50 mls/hr Q2H PRN IV 01/31/18 01:15 02/01/18 06:49 Magnesium Sulfate 4 gm/Sodium Chloride 100 ml @ 50 mls/hr UNSCH PRN IV 01/31/18 01:15 (Mag-Ox) 800 mg UNSCH PRN PO 01/31/18 01:15 Magnesium Sulfate 2 gm/Sodium Chloride 100 ml @ 50 mls/hr UNSCH PRN IV 01/31/18 01:15 (K-Phos) 2,000 mg Q4H PRN PO 01/31/18 01:15 Sodium Phosphate 30 mmol/Sodium Chloride 250 ml @ 42 mls/hr UNSCH PRN IV 01/31/18 01:15 01/31/18 17:07 (K-Phos) 2,000 mg UNSCH PRN PO/TUBE 01/31/18 01:15 Potassium Phosphate 30 mmol/ Sodium Chloride 260 ml @ 42 mls/hr UNSCH PRN IV 01/31/18 01:15 (Apresoline Inj) 20 mg Q4H PRN IV PUSH 02/02/18 17:30 02/04/18 19:32 (Melatonin) 5 mg HS PO 02/06/18 21:00 02/06/18 20:45 (Lipitor) 40 mg HS PO 02/07/18 21:00 (Synthroid) 75 mcg DAILY@0700 PO 02/07/18 07:00 (Spiriva Inh) 18 mcg DAILY INH 02/07/18 09:00 Allergies Allergies Coded Allergies allopurinol (Verified Allergy, Severe, Irritation, 01/31/18) Review of Systems All other ROS: ROS reviewed as documented in chart Exam I&O / VS Vital Signs Date Time Temp Pulse Resp B/P (MAP) Pulse Ox O2 Delivery O2 Flow Rate FiO2 02/07/18 06:00 81 02/07/18 04:00 79 02/07/18 04:00 98.7 79 26 158/70 (99) 96 02/07/18 02:00 80 02/07/18 00:00 84 02/07/18 00:00 98.6 84 21 146/74 (98) 97 02/06/18 22:00 97 02/06/18 20:00 95 Room Air 02/06/18 20:00 89 02/06/18 20:00 97.5 89 22 179/77 (111) 95 02/06/18 18:00 82 02/06/18 16:00 82 02/06/18 16:00 98.4 82 21 147/65 (92) 100 02/06/18 14:00 82 02/06/18 12:00 82 02/06/18 12:00 98.3 82 17 151/63 (92) 95 Exam Comments alert, head tilt to left, mild left gaze preference, dysarthric speech, mumbles , follows occasionally, ou 2.5-2mm, rt facial droop, rt ue 0-1/5 with increased tone, rt leg 0-1/5 Objective Micro and Labs Laboratory Tests Test 02/07/18 04:54 White Blood Count 6.2 Red Blood Count 3.12 Hemoglobin 9.2 Hematocrit 27.0 Mean Corpuscular Volume 86.7 Mean Corpuscular Hemoglobin 29.4 Mean Corpuscular Hemoglobin Concent 33.9 Red Cell Distribution Width 16.4 Platelet Count 181 Mean Platelet Volume 7.7 Prothrombin Time 17.3 Prothromb Time International Ratio 1.7 Blood Urea Nitrogen 17 Creatinine 0.84 Random Glucose 107 Calcium Level 8.7 Sodium Level 142 Potassium Level 3.8 Chloride Level 106 Carbon Dioxide Level 29.8 Anion Gap 6 Estimat Glomerular Filtration Rate 87 Date/Time Source Procedure Growth Status 02/02/18 09:20 Sputum Endotracheal Gram Stain - Final Complete 02/02/18 09:20 Sputum Endotracheal Sputum Culture - Final HEAVY GROWTH NORMAL RESPIRATORY CHANTELL Complete 02/05/18 11:00 Urine Catheterized Urine Urine Culture - Final NO GROWTH IN 48 HOURS. Complete Problem Qualifiers (1) HTN (hypertension): Qualified Codes: I10 - Essential (primary) hypertension Navi Brown MD Feb 07, 2018 10:59
--- NOTE | 2018-02-07 14:10 | HHI.CCPN ---
Subjective Remarks/Hospital Course 82-year-old gentleman with past medical history of chronic atrial fibrillation on anticoagulation with warfarin, hypertension, hyperlipidemia, prior TIA who was transferred from [facility] due to acute stroke. His had spoken with him around 12:30 on 01/29. When she returned home at 1:30 he was having difficulty speaking and right hemiplegia. He presented to [facility] with right facial droop, right hemiplegia, leftward gaze, nonverbal. CT brain demonstrated hyperdense left M1 and M2 segments. He was not a candidate for systemic TPA due to INR of 1.8 at outside hospital. CTA demonstrated thromboembolism of M1 and M2 segments. CT perfusion demonstrated large acute left MCA infarct without surrounding ischemic penumbra. Consultation was made with neurology at [facility] who recommended medical management. Family requested aggressive therapy and case was discussed with Dr. Baum and neuroradiology and patient was transferred to [place] where he underwent thrombectomy by Dr. Shelby as family was accepting of increased risk of hemorrhage. There was difficulty achieving hemostasis at R groin site so he was taken emergently to OR where he underwent repair of R femoral artery by Dr. Ayala. He was intubated in specials by Dr. Ames. Intraoperatively he received 800 crystalloid, EBL 450 mL, UOP was 700. Dr. Ayala discussed with Dr. Baum postoperatively and [facility] has been called for admission. Patient remains intubated. 01/31: Appears more alert this morning. We will leave intubated because he will require sedation for MRI. Try to extubate after. 02/01: MRI completed, will start weaning trials. 02/02: Ct head yesterday showed evolving left sided stroke. Propofol held patient is awake follows commands from the left upper extremity. Flaccid on the right upper extremity. Moderate reinoso secretions from ET tube. Chest x-ray pending. Spontaneous breathing trials initiated 02/03: Extubated yesterday breathing comfortably. Globally aphasic. Moves LUE, follows commands on the same. Pleasant. Discussed with Dr. Baum lower blood pressure goal to 140-160. Start Coumadin once cleared by speech therapy 02/04: Episode of agitation early a.m., tried to get out of bed. Patient was given Haldol with improvement in agitation now sedated. Not following commands due to sedation but moving extremities except right upper. Possibly ICU delirium 02/05: Appears more lethargic today but wakes up to stimulation and follows commands on the left. Chest x-ray clear white count is normal. Did not receive any sedating medications overnight. I have requested ABG and CT of the head stat. Further recommendations based on results. INR is 2.2 02/06: agitated overnight. day/night orientation has been difficult. somnolent during the day and aroused at night. wbc normal. neuro exam stable, and somewhat improving this morning. inr stable at 2.2. 02/07: slept all night with melatonin. much more awake. less delirious. MRI read with small bleed visible- slightly larger per Dr. Brown. need to discuss timing of reinstitution of anticoagulation. INR 1.7. Objective Vital Signs Date Time Temp Pulse Resp B/P (MAP) Pulse Ox O2 Delivery O2 Flow Rate FiO2 02/07/18 06:00 81 02/07/18 04:00 98.7 26 158/70 (99) 96 02/06/18 20:00 Room Air 02/03/18 21:12 21 02/03/18 07:00 2.00 Result Diagram: 02/07/18 0454 02/07/18 0454 Other Results Microbiology Date/Time Source Procedure Growth Status 02/05/18 11:00 Urine Catheterized Urine Urine Culture - Final NO GROWTH IN 48 HOURS. Complete Objective Remarks GENERAL: Elderly patient who is on NC, arousable. intermittently agitated. SKIN: Warm and dry. VASC: Right IJ central line in place HEAD: Atraumatic. Normocephalic. EYES: Pupils equal and round with pupils 3 mm and sluggishly reactive to 2 mm bilaterally. ENT: No nasal bleeding or discharge. Mucous membranes pink and moist. NECK: Trachea midline. No JVD. CARDIOVASCULAR: Irregularly irregular, A. fib on the monitor. RESPIRATORY: equal chest rise. nc o2. No accessory muscle use GASTROINTESTINAL: Abdomen soft, non-tender, nondistended. MUSCULOSKELETAL: Extremities without clubbing, cyanosis. NEUROLOGICAL: RASS -2, occasionally +1. Global aphasia. Moves LUE, flaccid RUE. Spontaneously moving LLE with at least 4-/5 strength. A/P Problem List: (1) Respiratory failure, acute ICD Code: J96.00 - Acute respiratory failure, unspecified whether with hypoxia or hypercapnia Status: Acute (2) Common femoral artery injury ICD Code: S75.009A - Unspecified injury of femoral artery, unspecified leg, initial encounter Status: Acute (3) Acute ischemic stroke ICD Code: I63.9 - Cerebral infarction, unspecified Status: Acute (4) Diabetes mellitus ICD Code: E11.9 - Type 2 diabetes mellitus without complications Status: Chronic (5) HTN (hypertension) ICD Code: I10 - Essential (primary) hypertension (6) HLD (hyperlipidemia) ICD Code: E78.5 - Hyperlipidemia, unspecified (7) Atrial fibrillation ICD Code: I48.91 - Unspecified atrial fibrillation Status: Chronic (8) Warfarin anticoagulation ICD Code: Z79.01 - tenter 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 back 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 (current) use of anticoagulants Status: Chronic (9) Sleep apnea ICD Code: G47.30 - Sleep apnea, unspecified Status: Chronic (10) CKD (chronic kidney disease) stage 4, GFR 15-29 ml/min ICD Code: N18.4 - Chronic kidney disease, stage 4 (severe) Status: Chronic (11) Gout ICD Code: M10.9 - Gout, unspecified Status: Chronic (12) Hypothyroid ICD Code: E03.9 - Hypothyroidism, unspecified Status: Chronic (13) Chronic diastolic (congestive) heart failure ICD Code: I50.32 - Chronic diastolic (congestive) heart failure Status: Chronic Assessment and Plan Assessment: 82yM s/p left MCA CVA, course complicated by small intra-infarct hemorrhagic conversion. plan to hold anticoagulation. would recommend repeat CT either friday/friday and then if stable, very slow transition back to full anticoagulation. do not want to impede inpatient rehab efforts, and would look towards rehab early next week if continues to clinically improve. continue melatonin and non-pharmacologic day/night orientation. keep in ICU. high risk for further morbidity. NEURO: Acute ischemic stroke, L MCA Encephalopathy worsening Agitation/delirium Sensorineural hearing loss History of TIA in 2009 CT 02/05: small area of hemorrhagic conversion. Was not candidate for systemic TPA due to INR 1.8. S/p thrombectomy 01/30/18. MRI and CT shows evolving left sided stroke Neurocheck per ICU protocol, Hemodynamic monitoring Neurology Dr. Baum following hold anticoagulation. INR 1.7 Haldol 2 mg IV q6hr PRN for agitation-Will discontinue 02/05 Agitation most likely secondary to ICU delirium PT/OT/Speech continue melatonin for sleep. will defer to Neurology regarding anticoagulation in the face of small bleed. RESP: Acute respiratory failure-resolved Sleep apnea on CPAP at home On NC. Extubated 02/02. Protecting airway DuoNeb every 6 hours as needed EzPAP, Acapella Use home CPAP CV: Hypertension Hyperlipidemia Chronic atrial fibrillation on chronic anticoagulation with warfarin Chronic heart failure with preserved ejection fraction Holding antihypertensive medications. Blood pressure target to 140-160, discussed with Dr. Baum S/p R femoral artery repair 01/30, Dr. Ayala GI: Speech therapy consult for swallow eval, diet per recommendation. FEN/RENAL: Chronic kidney disease stage IV Monitor intake and output via condom cath. Monitor electrolytes. Replace as indicated. ID: Monitor for signs and symptoms of infection HEME: On chronic anti-coagulation with warfarin holding anticoagulation. check daily INR. ENDO: Hypothyroidism Normal TSH. Continue Synthroid. MSK: Gout Resume appropriate meds. Med rec pending. PROPH: SCDs for DVT prophylaxis.INR 2.2. hold additional anticoag for now. Lansoprazole for stress ulcer prophylaxis. ACCESS: piv Problem Qualifiers (1) HTN (hypertension): Qualified Codes: I10 - Essential (primary) hypertension Rahat Diggs MD Feb 07, 2018 14:10
[2018-02-07] MEDS: hydrALAZINE HCL 20 MG/ML VIAL IV PUSH PRN (18:30)
[2018-02-07] MEDS: RESP: IPRATROPIUM 0.5 MG/2.5 ML NEB NEB SCH (20:29)
[2018-02-07] MEDS ORDERED: ACETAMINOPHEN 1000 MG/100 ML 65 ML IV PRN (21:00)
[2018-02-07] MEDS: MELATONIN 5 MG TAB PO SCH (21:00)
--- NOTE | 2018-02-07 21:20 | RADRPT ---
EXAM DATE/TIME: 02/07/2018 21:03 [place] COMPARISON: No previous studies available for comparison. INDICATIONS : Shortness of breath and fever. MEDICAL HISTORY : Chronic obstructive pulmonary disease. Hypertension Stroke SURGICAL HISTORY : None. ENCOUNTER: Subsequent ACUITY: 1 week PAIN SCORE: Non-responsive. LOCATION: Bilateral chest FINDINGS: Trace bibasilar atelectasis. No definite pneumonia. No perceptible pleural effusion. No pneumothorax. Mild cardiomegaly again noted. Atherosclerotic aorta. CONCLUSION: Trace atelectasis and mild cardiomegaly. Juan Francisco Phan MD on February 07, 2018 at 21:17 Board Certified Radiologist. This report was verified electronically.
[2018-02-07] MEDS: ATORVASTATIN 40 MG TAB PO SCH (21:36)
[2018-02-08] VITALS (13 sets, daily range): BP systolic 132–187; BP diastolic 60–77; PULSE 81–96; RESP 18–22; TEMP 98.4–99.5; O2SAT 96–99
[2018-02-08] MEDS: CHLORHEXIDINE GLUCONATE 2 % 1 PACK (2 CLOTHS) TOP SCH (04:00)
[2018-02-08] MEDS: hydrALAZINE HCL 20 MG/ML VIAL IV PUSH PRN (04:07)
--- NOTE | 2018-02-08 08:35 | HHI.CCPN ---
Subjective Remarks/Hospital Course 82-year-old gentleman with past medical history of chronic atrial fibrillation on anticoagulation with warfarin, hypertension, hyperlipidemia, prior TIA who was transferred from [facility] due to acute stroke. His had spoken with him around 12:30 on 01/29. When she returned home at 1:30 he was having difficulty speaking and right hemiplegia. He presented to [facility] with right facial droop, right hemiplegia, leftward gaze, nonverbal. CT brain demonstrated hyperdense left M1 and M2 segments. He was not a candidate for systemic TPA due to INR of 1.8 at outside hospital. CTA demonstrated thromboembolism of M1 and M2 segments. CT perfusion demonstrated large acute left MCA infarct without surrounding ischemic penumbra. Consultation was made with neurology at [facility] who recommended medical management. Family requested aggressive therapy and case was discussed with Dr. Baum and neuroradiology and patient was transferred to [place] where he underwent thrombectomy by Dr. Shelby as family was accepting of increased risk of hemorrhage. There was difficulty achieving hemostasis at R groin site so he was taken emergently to OR where he underwent repair of R femoral artery by Dr. Ayala. He was intubated in specials by Dr. Ames. Intraoperatively he received 800 crystalloid, EBL 450 mL, UOP was 700. Dr. Ayala discussed with Dr. Baum postoperatively and [facility] has been called for admission. Patient remains intubated. 01/31: Appears more alert this morning. We will leave intubated because he will require sedation for MRI. Try to extubate after. 02/01: MRI completed, will start weaning trials. 02/02: Ct head yesterday showed evolving left sided stroke. Propofol held patient is awake follows commands from the left upper extremity. Flaccid on the right upper extremity. Moderate reinoso secretions from ET tube. Chest x-ray pending. Spontaneous breathing trials initiated 02/03: Extubated yesterday breathing comfortably. Globally aphasic. Moves LUE, follows commands on the same. Pleasant. Discussed with Dr. Baum lower blood pressure goal to 140-160. Start Coumadin once cleared by speech therapy 02/04: Episode of agitation early a.m., tried to get out of bed. Patient was given Haldol with improvement in agitation now sedated. Not following commands due to sedation but moving extremities except right upper. Possibly ICU delirium 02/05: Appears more lethargic today but wakes up to stimulation and follows commands on the left. Chest x-ray clear white count is normal. Did not receive any sedating medications overnight. I have requested ABG and CT of the head stat. Further recommendations based on results. INR is 2.2 02/06: agitated overnight. day/night orientation has been difficult. somnolent during the day and aroused at night. wbc normal. neuro exam stable, and somewhat improving this morning. inr stable at 2.2. 02/07: slept all night with melatonin. much more awake. less delirious. MRI read with small bleed visible- slightly larger per Dr. Brown. need to discuss timing of reinstitution of anticoagulation. INR 1.7. 02/08: spiked fever to 102 overnight. CXR clear, no secretions, cough, increased o2 requirement. no other changes. abx not started but blood cultures sent. labs pending. delirium continues to be improved. moving right side more briskly than before and crossing midline. Objective Vital Signs Date Time Temp Pulse Resp B/P (MAP) Pulse Ox O2 Delivery O2 Flow Rate FiO2 02/08/18 06:00 90 02/08/18 04:00 99.0 22 156/76 (102) 98 02/07/18 19:00 Room Air Intake and Output 02/08/18 02/08/18 02/09/18 08:00 16:00 00:00 Intake Total 120 ml Output Total 200 ml Balance -80 ml Result Diagram: 02/07/18 0454 02/07/18 0454 Other Results Microbiology Date/Time Source Procedure Growth Status 02/05/18 11:00 Urine Catheterized Urine Urine Culture - Final NO GROWTH IN 48 HOURS. Complete Objective Remarks GENERAL: Elderly patient who is on NC, arousable. intermittently agitated. SKIN: Warm and dry. VASC: Right IJ central line in place HEAD: Atraumatic. Normocephalic. EYES: Pupils equal and round with pupils 3 mm and sluggishly reactive to 2 mm bilaterally. ENT: No nasal bleeding or discharge. Mucous membranes pink and moist. NECK: Trachea midline. No JVD. CARDIOVASCULAR: Irregularly irregular, A. fib on the monitor. RESPIRATORY: equal chest rise. nc o2. No accessory muscle use GASTROINTESTINAL: Abdomen soft, non-tender, nondistended. MUSCULOSKELETAL: Extremities without clubbing, cyanosis. NEUROLOGICAL: RASS -1. Global aphasia. Moves LUE, moving RUE more briskly and even crosses midline today. Spontaneously moving LLE with at least 4-/5 strength. A/P Problem List: (1) Respiratory failure, acute ICD Code: J96.00 - Acute respiratory failure, unspecified whether with hypoxia or hypercapnia Status: Acute (2) Common femoral artery injury ICD Code: S75.009A - Unspecified injury of femoral artery, unspecified leg, initial encounter Status: Acute (3) Acute ischemic stroke ICD Code: I63.9 - Cerebral infarction, unspecified Status: Acute (4) Diabetes mellitus ICD Code: E11.9 - Type 2 diabetes mellitus without complications Status: Chronic (5) HTN (hypertension) ICD Code: I10 - Essential (primary) hypertension (6) HLD (hyperlipidemia) ICD Code: E78.5 - Hyperlipidemia, unspecified (7) Atrial fibrillation ICD Code: I48.91 - Unspecified atrial fibrillation Status: Chronic (8) Warfarin anticoagulation ICD 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: 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 Status: Chronic (9) Sleep apnea ICD Code: G47.30 - Sleep apnea, unspecified Status: Chronic (10) CKD (chronic kidney disease) stage 4, GFR 15-29 ml/min ICD Code: N18.4 - Chronic kidney disease, stage 4 (severe) Status: Chronic (11) Gout ICD Code: M10.9 - Gout, unspecified Status: Chronic (12) Hypothyroid ICD Code: E03.9 - Hypothyroidism, unspecified Status: Chronic (13) Chronic diastolic (congestive) heart failure ICD Code: I50.32 - Chronic diastolic (congestive) heart failure Status: Chronic Assessment and Plan Assessment: 82yM s/p left MCA CVA, course complicated by small intra-infarct hemorrhagic conversion. neurology assisting and guiding anticoagulation plan. will discuss today timing. do not want to impede inpatient rehab efforts, and would look towards rehab early next week if continues to clinically improve. continue melatonin and non-pharmacologic day/night orientation. keep in ICU. high risk for further morbidity. for fever, will give tylenol. if any other signs of infectious etiology, will empirically cover with broad spectrum abx. will send procalcitonin, as if it is negative, would have good sensitivity and negative predictive value for infection. NEURO: Acute ischemic stroke, L MCA Encephalopathy worsening Agitation/delirium Sensorineural hearing loss History of TIA in 2009 CT 02/05: small area of hemorrhagic conversion. Was not candidate for systemic TPA due to INR 1.8. S/p thrombectomy 01/30/18. MRI and CT shows evolving left sided stroke Neurocheck per ICU protocol, Hemodynamic monitoring Neurology Dr. Baum following hold anticoagulation. INR 1.7 Haldol 2 mg IV q6hr PRN for agitation-Will discontinue 02/05 Agitation most likely secondary to ICU delirium PT/OT/Speech continue melatonin for sleep. will defer to Neurology regarding anticoagulation in the face of small bleed. RESP: Acute respiratory failure-resolved Sleep apnea on CPAP at home On . Extubated 02/02. Protecting airway DuoNeb every 6 hours as needed EzPAP, Acapella Use home CPAP CV: Hypertension Hyperlipidemia Chronic atrial fibrillation on chronic anticoagulation with warfarin Chronic heart failure with preserved ejection fraction Holding antihypertensive medications. Blood pressure target to 140-160, discussed with Dr. Baum S/p R femoral artery repair 01/30, Dr. Ayala GI: Speech therapy consult for swallow eval, diet per recommendation. FEN/RENAL: Chronic kidney disease stage IV Monitor intake and output via condom cath. Monitor electrolytes. Replace as indicated. ID: Monitor for signs and symptoms of infection HEME: On chronic anti-coagulation with warfarin holding anticoagulation. check daily INR. ENDO: Hypothyroidism Normal TSH. Continue Synthroid. MSK: Gout Resume appropriate meds. Med rec pending. PROPH: SCDs for DVT prophylaxis.INR 2.2. hold additional anticoag for now. Lansoprazole for stress ulcer prophylaxis. ACCESS: piv Problem Qualifiers (1) HTN (hypertension): Qualified Codes: I10 - Essential (primary) hypertension Rahat Diggs MD Feb 08, 2018 08:35
[2018-02-08] MEDS: LEVOTHYROXINE SODIUM 75 MCG TAB PO SCH (08:38)
[2018-02-08] MEDS: SODIUM CHLORIDE 0.9% FLUSH 10 ML FLUSH IV FLUSH SCH ×2 (08:38→21:40)
[2018-02-08] MEDS: DOCUSATE SODIUM 50 MG/SENNA 8.6 MG TAB PO SCH ×2 (08:38→21:39)
[2018-02-08] MEDS: LANSOPRAZOLE SOLUTAB 30 MG TAB G-TUBE SCH (08:38)
[2018-02-08] MEDS ORDERED: ACETAMINOPHEN 1000 MG/100 ML 100 ML IV ONE (09:00)
[2018-02-08 09:52] LABS: HEMATOCRIT 27.6 % (39.0-51.0); HEMOGLOBIN 9.3 GM/DL (13.0-17.0); MEAN CELL VOLUME 86.6 FL (80.0-100.0); MEAN CORPUSCULAR HEMOGLOBIN 29.2 PG (27.0-34.0); MEAN CORPUSCULAR HGB CONC 33.7 % (32.0-36.0); MEAN PLATELET VOLUME 7.6 FL (7.0-11.0); PLATELET COUNT 240 TH/MM3 (150-450); RED BLOOD COUNT 3.19 MIL/MM3 (4.50-5.90); RED CELL DISTRIBUTION WIDTH 16.6 % (11.6-17.2); WHITE BLOOD COUNT 7.3 TH/MM3 (4.0-11.0)
[2018-02-08 09:58] LABS: INTERNATIONAL NORMALIZED RATIO 1.3 RATIO; PROTHROMBIN TIME - PATIENT 12.7 SEC (9.8-11.6)
[2018-02-08 10:16] LABS: BICARBONATE 31.8 MEQ/L (21.0-32.0); CALCIUM 8.9 MG/DL (8.5-10.1); CREATININE 0.84 MG/DL (0.60-1.30)
--- NOTE | 2018-02-08 10:37 | HHI.PR ---
Review/Management Plan iv hep started no bolus recheck ct in am 02/01/18 ct no major change no blood hb down a little on iv hep coumadin when able off vent when able stable neuro 02/02/18 stable await off vent watch h/h 02/03/18 doing well resp looks good plan is coumadin aissatou when cleared to eat he can get oob he was on 5mg at home so could probably start with 10mg first day then 5 aftert that and dc hep when inr>1.9 02/04/18 no agitation overnoc slept well repeat CT brain ordered on coumadin INR 2.2 today daily INR try and get oob today fu ct 02/06/18 imp some agitation overnoc CT brain showed evolving l parietal infarct MRI brain showed evolving l parietal and small area of hemorrhage left posterior occipital coumadin was held, INR 2.2 today risk of no anticoag is another infarct follow INR closely EEG showed some asymmetric left hemispheric slowing and encephalopathy oob in chair today, rec PT 7 days a week fu Diagnosis/Plan: (1) Acute ischemic left MCA stroke ICD Codes: I63.512 - Cerebral infarction due to unspecified occlusion or stenosis of left middle cerebral artery Plan: mri brain reviewed ich looks alittle larger to me was on hep gtt and then coumadin post-stroke followed by ich recs neuro stable hold oac Dr. Galarza can consider when he see's the pt tomorrow p.t./s.t. 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 Status: Chronic (3) Atrial fibrillation ICD Codes: I48.91 - Unspecified atrial fibrillation Status: Chronic (4) HTN (hypertension) ICD Codes: I10 - Essential (primary) hypertension Subjective Subjective Comments No acute events reported older daughter at bedside Active Medications Current Medications Medications (Trade) Dose Ordered Sig/Demetra Route Start Time Stop Time Status Last Admin (NS Flush) 2 ml UNSCH PRN IV FLUSH 01/30/18 23:15 (NS Flush) 2 ml BID IV FLUSH 01/31/18 09:00 02/08/18 08:38 (Tylenol) 650 mg Q6H PRN PO 01/30/18 23:15 02/03/18 16:45 (Prevacid Odt) 30 mg DAILY G-TUBE 01/31/18 09:00 02/08/18 08:38 (Zofran Inj) 4 mg Q6H PRN IV PUSH 01/30/18 23:15 01/31/18 20:26 (Albuterol Neb) 2.5 mg Q2HR NEB PRN INH 01/30/18 23:15 02/06/18 22:01 Miscellaneous Information 1 Q361D XX 01/30/18 23:15 01/30/18 23:15 (Chlorhexidine 2% Cloth) Taper DAILY@04 TOP 01/31/18 04:00 01/27/19 03:59 02/08/18 04:00 (Chlorhexidine 2% Cloth) 3 pack UNSCH PRN TOP 01/30/18 23:15 (Gifty-Colace) 1 tab BID PO 01/31/18 09:00 02/08/18 08:38 (Milk Of Magnesia Liq) 30 ml Q12H PRN PO 01/30/18 23:15 (Senokot) 17.2 mg Q12H PRN PO 01/30/18 23:15 (Dulcolax Supp) 10 mg DAILY PRN RECTAL 01/30/18 23:15 (Lactulose Liq) 30 ml DAILY PRN PO 01/30/18 23:15 (Brethine Inj) 1 mg UNSCH PRN SQ 01/31/18 01:15 Potassium Chloride 100 ml @ 50 mls/hr Q2H PRN IV 01/31/18 01:15 Potassium Chloride 100 ml @ 50 mls/hr Q2H PRN IV 01/31/18 01:15 (K-Lyte Cl Eff) 50 meq UNSCH PRN PO 01/31/18 01:15 Potassium Chloride 100 ml @ 25 mls/hr UNSCH PRN IV 01/31/18 01:15 Potassium Chloride 100 ml @ 50 mls/hr Q2H PRN IV 01/31/18 01:15 02/01/18 06:49 Magnesium Sulfate 4 gm/Sodium Chloride 100 ml @ 50 mls/hr UNSCH PRN IV 01/31/18 01:15 (Mag-Ox) 800 mg UNSCH PRN PO 01/31/18 01:15 Magnesium Sulfate 2 gm/Sodium Chloride 100 ml @ 50 mls/hr UNSCH PRN IV 01/31/18 01:15 (K-Phos) 2,000 mg Q4H PRN PO 01/31/18 01:15 Sodium Phosphate 30 mmol/Sodium Chloride 250 ml @ 42 mls/hr UNSCH PRN IV 01/31/18 01:15 01/31/18 17:07 (K-Phos) 2,000 mg UNSCH PRN PO/TUBE 01/31/18 01:15 Potassium Phosphate 30 mmol/ Sodium Chloride 260 ml @ 42 mls/hr UNSCH PRN IV 01/31/18 01:15 (Apresoline Inj) 20 mg Q4H PRN IV PUSH 02/02/18 17:30 02/08/18 04:07 (Melatonin) 5 mg HS PO 02/06/18 21:00 02/06/18 20:45 (Lipitor) 40 mg HS PO 02/07/18 21:00 02/07/18 21:36 (Synthroid) 75 mcg DAILY@0700 PO 02/07/18 07:00 02/08/18 08:38 (Atrovent Neb) 0.5 mg TID NEB NEB 02/07/18 20:00 02/07/18 20:29 Allergies Allergies Coded Allergies allopurinol (Verified Allergy, Severe, Irritation, 01/31/18) Review of Systems All other ROS: ROS reviewed as documented in chart Exam I&O / VS Vital Signs Date Time Temp Pulse Resp B/P (MAP) Pulse Ox O2 Delivery O2 Flow Rate FiO2 02/08/18 06:00 90 02/08/18 04:00 89 02/08/18 04:00 99.0 89 22 156/76 (102) 98 02/08/18 02:00 93 02/08/18 00:00 99.2 84 19 141/65 (90) 98 02/08/18 00:00 93 02/07/18 22:00 88 02/07/18 22:00 100.0 88 24 159/63 (95) 98 02/07/18 20:30 97 02/07/18 20:00 102.4 119 24 191/82 (118) 96 02/07/18 20:00 119 02/07/18 19:00 100 Room Air Exam Comments alerts, sipping on ensure, turned head towards me, mild left gaze preference, dysarthric speech, mumbles, follows occasionally, ou 2.5-2mm, rt facial droop, rt ue 0-1/5 with increased tone, rt leg 0-1/5 Objective Micro and Labs Laboratory Tests Test 02/08/18 09:10 White Blood Count 7.3 Red Blood Count 3.19 Hemoglobin 9.3 Hematocrit 27.6 Mean Corpuscular Volume 86.6 Mean Corpuscular Hemoglobin 29.2 Mean Corpuscular Hemoglobin Concent 33.7 Red Cell Distribution Width 16.6 Platelet Count 240 Mean Platelet Volume 7.6 Prothrombin Time 12.7 Prothromb Time International Ratio 1.3 Blood Urea Nitrogen 18 Creatinine 0.84 Random Glucose 99 Calcium Level 8.9 Sodium Level 141 Potassium Level 4.0 Chloride Level 104 Carbon Dioxide Level 31.8 Anion Gap 5 Estimat Glomerular Filtration Rate 87 Date/Time Source Procedure Growth Status 02/07/18 22:29 Blood Peripheral Aerobic Blood Culture Pending Received 02/07/18 22:29 Blood Peripheral Anaerobic Blood Culture Pending Received 02/02/18 09:20 Sputum Endotracheal Gram Stain - Final Complete 02/02/18 09:20 Sputum Endotracheal Sputum Culture - Final HEAVY GROWTH NORMAL RESPIRATORY CHANTELL Complete 02/05/18 11:00 Urine Catheterized Urine Urine Culture - Final NO GROWTH IN 48 HOURS. Complete Problem Qualifiers (1) HTN (hypertension): Qualified Codes: I10 - Essential (primary) hypertension Navi Brown MD Feb 08, 2018 10:37
[2018-02-08] MEDS: RESP: IPRATROPIUM 0.5 MG/2.5 ML NEB NEB SCH (14:00)
[2018-02-08] MEDS ORDERED: ACETAMINOPHEN 1000 MG/100 ML 100 ML IV PRN (16:00)
[2018-02-08] MEDS: MELATONIN 5 MG TAB PO SCH (21:39)
[2018-02-08] MEDS: ATORVASTATIN 40 MG TAB PO SCH (21:39)
[2018-02-09] VITALS (14 sets, daily range): BP systolic 122–175; BP diastolic 62–74; PULSE 74–100; RESP 16–25; TEMP 98.5–99.3; O2SAT 96–100
[2018-02-09 05:24] LABS: HEMATOCRIT 24.9 % (39.0-51.0); HEMOGLOBIN 8.5 GM/DL (13.0-17.0); MEAN CELL VOLUME 86.6 FL (80.0-100.0); MEAN CORPUSCULAR HEMOGLOBIN 29.6 PG (27.0-34.0); MEAN CORPUSCULAR HGB CONC 34.2 % (32.0-36.0); MEAN PLATELET VOLUME 7.2 FL (7.0-11.0); PLATELET COUNT 228 TH/MM3 (150-450); RED BLOOD COUNT 2.88 MIL/MM3 (4.50-5.90); RED CELL DISTRIBUTION WIDTH 16.8 % (11.6-17.2)
[2018-02-09 05:34] LABS: INTERNATIONAL NORMALIZED RATIO 1.3 RATIO; PROTHROMBIN TIME - PATIENT 12.7 SEC (9.8-11.6)
[2018-02-09 05:47] LABS: BICARBONATE 31.5 MEQ/L (21.0-32.0); CALCIUM 8.4 MG/DL (8.5-10.1); CREATININE 0.91 MG/DL (0.60-1.30)
[2018-02-09] MEDS: LEVOTHYROXINE SODIUM 75 MCG TAB PO SCH (06:46)
[2018-02-09] MEDS: hydrALAZINE HCL 20 MG/ML VIAL IV PUSH PRN (06:46)
--- NOTE | 2018-02-09 08:04 | HHI.PR ---
Subjective Remarks SP CLOT REMOVAL Objective Vital Signs Date Time Temp Pulse Resp B/P (MAP) Pulse Ox O2 Delivery O2 Flow Rate FiO2 02/09/18 04:00 98.6 92 20 175/74 (107) 97 02/09/18 00:00 98.5 84 20 157/70 (99) 96 02/08/18 20:00 98 Room Air 02/08/18 20:00 99.5 92 19 187/77 (113) 99 02/08/18 18:00 87 02/08/18 16:00 82 02/08/18 16:00 98.4 82 18 132/60 (84) 99 02/08/18 14:00 81 02/08/18 12:00 86 02/08/18 10:00 82 I/O 02/08/18 02/08/18 02/08/18 02/09/18 02/09/18 02/09/18 07:00 15:00 23:00 07:00 15:00 23:00 Intake Total 120 ml 240 ml 120 ml Output Total 200 ml Balance -80 ml 240 ml 120 ml Intake Oral 120 ml 240 ml 120 ml Output Urine Total 200 ml # Voids 5 5 4 # Bowel Movements 0 0 0 Result Diagram: 02/09/18 0507 02/09/18 0507 Objective Remarks on vent and some dip awake not following commands pupil= flaccid rue can move the rle some moving left toes equiv bilat to upgoing no rxt threat on r does to left about same as yest not following commands right now 02/03/18 off vent awke mumbles globally aphasic moves left well 0/5 rue 1/5 rle r toe up awake alert -/ 02/09/18 awake said part of hello not follw commands moving rue and rle awakealert / Assessment and Plan Assessment and Plan imp mod size left mca cva minimal petichial change on mri afib with cva at 1.8 inr i dw son percy and risk of recurrent cva not anticoagulated and risk of bleeding into brain inc on heparin but i feel he is at higher risk of recurrent cva from afib than bleeding into cva he needs to get on coumadin aissatou can he get of vent soon? iv hep started no bolus recheck ct in am 02/01/18 ct no major change no blood hb down a little on iv hep coumadin when able off vent when able stable neuro 02/02/18 stable await off vent watch h/h 02/03/18 doing well resp looks good plan is coumadin aissatou when cleared to eat he can get oob he was on 5mg at home so could probably start with 10mg first day then 5 aftert that and dc hep when inr>1.9 02/09/18 left mca afib hemorrhagic infarcy off anticoag now will have nusu weigh in on timing of anticoag bp rx blakely soon some mild progression of hematoma Steven Baum MD Feb 09, 2018 08:04
--- NOTE | 2018-02-09 08:27 | HHI.CCPN ---
Subjective Remarks/Hospital Course 82-year-old gentleman with past medical history of chronic atrial fibrillation on anticoagulation with warfarin, hypertension, hyperlipidemia, prior TIA who was transferred from [facility] due to acute stroke. His had spoken with him around 12:30 on 01/29. When she returned home at 1:30 he was having difficulty speaking and right hemiplegia. He presented to [facility] with right facial droop, right hemiplegia, leftward gaze, nonverbal. CT brain demonstrated hyperdense left M1 and M2 segments. He was not a candidate for systemic TPA due to INR of 1.8 at outside hospital. CTA demonstrated thromboembolism of M1 and M2 segments. CT perfusion demonstrated large acute left MCA infarct without surrounding ischemic penumbra. Consultation was made with neurology at [facility] who recommended medical management. Family requested aggressive therapy and case was discussed with Dr. Baum and neuroradiology and patient was transferred to [place] where he underwent thrombectomy by Dr. Shelby as family was accepting of increased risk of hemorrhage. There was difficulty achieving hemostasis at R groin site so he was taken emergently to OR where he underwent repair of R femoral artery by Dr. Ayala. He was intubated in specials by Dr. Ames. Intraoperatively he received 800 crystalloid, EBL 450 mL, UOP was 700. Dr. Ayala discussed with Dr. Baum postoperatively and [facility] has been called for admission. Patient remains intubated. 01/31: Appears more alert this morning. We will leave intubated because he will require sedation for MRI. Try to extubate after. 02/01: MRI completed, will start weaning trials. 02/02: Ct head yesterday showed evolving left sided stroke. Propofol held patient is awake follows commands from the left upper extremity. Flaccid on the right upper extremity. Moderate reinoso secretions from ET tube. Chest x-ray pending. Spontaneous breathing trials initiated 02/03: Extubated yesterday breathing comfortably. Globally aphasic. Moves LUE, follows commands on the same. Pleasant. Discussed with Dr. Baum lower blood pressure goal to 140-160. Start Coumadin once cleared by speech therapy 02/04: Episode of agitation early a.m., tried to get out of bed. Patient was given Haldol with improvement in agitation now sedated. Not following commands due to sedation but moving extremities except right upper. Possibly ICU delirium 02/05: Appears more lethargic today but wakes up to stimulation and follows commands on the left. Chest x-ray clear white count is normal. Did not receive any sedating medications overnight. I have requested ABG and CT of the head stat. Further recommendations based on results. INR is 2.2 02/06: agitated overnight. day/night orientation has been difficult. somnolent during the day and aroused at night. wbc normal. neuro exam stable, and somewhat improving this morning. inr stable at 2.2. 02/07: slept all night with melatonin. much more awake. less delirious. MRI read with small bleed visible- slightly larger per Dr. Brown. need to discuss timing of reinstitution of anticoagulation. INR 1.7. 02/08: spiked fever to 102 overnight. CXR clear, no secretions, cough, increased o2 requirement. no other changes. abx not started but blood cultures sent. labs pending. delirium continues to be improved. moving right side more briskly than before and crossing midline. 02/09: clinically much better today. awake, alert. remains aphasic. more movement in RUE. discussed with Dr. Coe: will need nsgy to clear for anticoagulation, but we both agree this can be done in inpatient rehab and we should not delay discharge for this. afebrile overnight. Objective Vital Signs Date Time Temp Pulse Resp B/P (MAP) Pulse Ox O2 Delivery O2 Flow Rate FiO2 02/09/18 06:00 82 02/09/18 04:00 98.6 20 175/74 (107) 97 02/08/18 20:00 Room Air Intake and Output 02/09/18 02/09/18 02/10/18 08:00 16:00 00:00 Intake Total 120 ml Balance 120 ml Result Diagram: 02/09/18 0507 02/09/18 0509 Objective Remarks GENERAL: Elderly patient who is on room air, awake, alert. SKIN: Warm and dry. VASC: Right IJ central line in place HEAD: Atraumatic. Normocephalic. EYES: Pupils equal and round with pupils 3 mm and briskly reactive. ENT: No nasal bleeding or discharge. Mucous membranes pink and moist. NECK: Trachea midline. No JVD. CARDIOVASCULAR: Irregularly irregular, A. fib on the monitor. RESPIRATORY: equal chest rise. nc o2. No accessory muscle use GASTROINTESTINAL: Abdomen soft, non-tender, nondistended. MUSCULOSKELETAL: Extremities without clubbing, cyanosis. NEUROLOGICAL: RASS 0. Global aphasia. Moves LUE, moving RUE more briskly and even crosses midline today. Spontaneously moving LLE with at least 4-/5 strength. A/P Problem List: (1) Respiratory failure, acute ICD Code: J96.00 - Acute respiratory failure, unspecified whether with hypoxia or hypercapnia Status: Acute (2) Common femoral artery injury ICD Code: S75.009A - Unspecified injury of femoral artery, unspecified leg, initial encounter Status: Acute (3) Acute ischemic stroke ICD Code: I63.9 - Cerebral infarction, unspecified Status: Acute (4) Diabetes mellitus ICD Code: E11.9 - Type 2 diabetes mellitus without complications Status: Chronic (5) HTN (hypertension) ICD Code: I10 - Essential (primary) hypertension (6) HLD (hyperlipidemia) ICD Code: E78.5 - Hyperlipidemia, unspecified (7) Atrial fibrillation ICD Code: I48.91 - Unspecified atrial fibrillation Status: Chronic (8) Warfarin anticoagulation ICD Code: Z79.01 - shelter (current) use of anticoagulants Status: Chronic (9) Sleep apnea ICD Code: G47.30 - Sleep apnea, unspecified Status: Chronic (10) CKD (chronic kidney disease) stage 4, GFR 15-29 ml/min ICD Code: N18.4 - Chronic kidney disease, stage 4 (severe) Status: Chronic (11) Gout ICD Code: M10.9 - Gout, unspecified Status: Chronic (12) Hypothyroid ICD Code: E03.9 - Hypothyroidism, unspecified Status: Chronic (13) Chronic diastolic (congestive) heart failure ICD Code: I50.32 - Chronic diastolic (congestive) heart failure Status: Chronic Assessment and Plan Assessment: 82yM s/p left MCA CVA, course complicated by small intra-infarct hemorrhagic conversion. neurology assisting and guiding anticoagulation plan. will ask neurosurgery to consult and weigh in. cleared and ready for inpatient rehab. will increase antihypertensives today. continue melatonin and non- pharmacologic day/night orientation. NEURO: Acute ischemic stroke, L MCA Encephalopathy worsening Agitation/delirium Sensorineural hearing loss History of TIA in 2009 CT 02/05: small area of hemorrhagic conversion. Was not candidate for systemic TPA due to INR 1.8. S/p thrombectomy 01/30/18. MRI and CT shows evolving left sided stroke Neurocheck per ICU protocol, Hemodynamic monitoring Neurology Dr. Baum following hold anticoagulation. INR 1.7 Haldol 2 mg IV q6hr PRN for agitation-Will discontinue 02/05 Agitation most likely secondary to ICU delirium PT/OT/Speech continue melatonin for sleep. will defer to Neurology regarding anticoagulation in the face of small bleed. consult neurosurgery to weigh in. RESP: Acute respiratory failure-resolved Sleep apnea on CPAP at home On [place]. Extubated 02/02. Protecting airway DuoNeb every 6 hours as needed EzPAP, Acapella Use home CPAP CV: Hypertension Hyperlipidemia Chronic atrial fibrillation on chronic anticoagulation with warfarin Chronic heart failure with preserved ejection fraction relaxed bp target to 120-140 added norvasc 10mg po daily added lisinopril 10mg po daily S/p R femoral artery repair 01/30, Dr. Ayala GI: Speech therapy consult for swallow eval, diet per recommendation. FEN/RENAL: Chronic kidney disease stage IV Monitor intake and output via condom cath. Monitor electrolytes. Replace as indicated. ID: Monitor for signs and symptoms of infection HEME: On chronic anti-coagulation with warfarin holding anticoagulation. check daily INR. ENDO: Hypothyroidism Normal TSH. Continue Synthroid. MSK: Gout Resume appropriate meds. Med rec pending. PROPH: SCDs for DVT prophylaxis. hold additional anticoag for now. Lansoprazole for stress ulcer prophylaxis. ACCESS: piv Problem Qualifiers (1) HTN (hypertension): Qualified Codes: I10 - Essential (primary) hypertension Rahat Diggs MD Feb 09, 2018 08:27
[2018-02-09] MEDS: DOCUSATE SODIUM 50 MG/SENNA 8.6 MG TAB PO SCH ×2 (09:01→20:51)
[2018-02-09] MEDS: LISINOPRIL 10 MG TAB PO SCH (09:01)
[2018-02-09] MEDS: SODIUM CHLORIDE 0.9% FLUSH 10 ML FLUSH IV FLUSH SCH ×2 (09:01→20:51)
[2018-02-09] MEDS: LANSOPRAZOLE SOLUTAB 30 MG TAB G-TUBE SCH (09:01)
--- NOTE | 2018-02-09 10:10 | PD.CONS ---
(Juan Manuel Lobato) [facility] Service Neurosurgery Consult Requested By Steven Baum MD Reason for Consult Bleed Primary Care Physician Unknown History of Present Illness This is an 82-year-old male who was last known to be well approximately 1230 on when he spoke with his by telephone. When she returned home at 1330 the patient was having difficulty speaking and had right hemiplegia. He was taken to [facility] where imaging demonstrated hyperdense left M1 and M2 segments and a CTA demonstrated thromboembolism of the M1 and M2 segments. CT perfusion demonstrated a large acute left MCA infarct without surrounding ischemic penumbra. He was not a candidate for systemic tPA due to an INR of 1.8 on his lab work. Neurology was consulted at [facility] and recommended medical management. The family requested aggressive therapy and his case was discussed with Neurology and Neuroradiology at [facility]. The family was accepting of the increased risk of haemorrhage. He was therefore transferred to [place] where he underwent thrombectomy by Neuroradiology. Following the procedure there was difficulty achieving haemostasis to the right groin insertion site. He was emergently intubated in Specials and taken to the operating room by Vascular Surgery for repair of the right femoral artery. Post- operatively he was admitted to the Intensive Surgical Care unit for further monitoring and care. Imaging on demonstrated evolution of the infarct and petechial haemorrhage. With his sedation held he was moving the left upper extremity on but flaccid to the right. A spontaneous breathing trial was done and he was subsequently extubated that date. After extubation he was noted to be globally aphasic. He did have some intermittent agitation and delirium which has improved with the introduction of melatonin to help him sleep and keep his day/night orientation. He continued to improve and was moving both upper extremities and crossing the midline. He did spike a fever of 102 the night of -15 but his x-ray was clear and blood cultures were obtained. Repeat imaging on demonstrated a focal haemorrhage in the left posterior occipital infarct, but there was no significant mass effect or herniation. When the patient went for imaging on the area of haemorrhage was slightly larger, measuring 2.74 cm. Today it was felt that the patient was stable for discharge to [facility] for further inpatient physical, occupational and speech therapy. It was felt that Neurosurgery should be consulted to weigh in on when it would be appropriate to restart the patient's anticoagulation due to his history of chronic atrial fibrillation. Due to the patient's aphasia the EMR was utilized to obtain the history of present illness, as well as his past medical and surgical history, etc. (Juan Maunel Lobato) Review of Systems Unable to obtain due to the patient's aphasia. (Juan Manuel Lobato) Past Family Social History Allergies: Coded Allergies: allopurinol (Verified Allergy, Severe, Irritation, 01/31/18) SKIN IRRITATION AND SLOUGHING. Past Medical History CVA (reason for admission) Hypertension Hyperlipidemia Chronic CHF with reportedly preserved EF Hypothyroidism Chronic atrial fibrillation Chronic kidney disease (Stage IV per daughter) Sensoroneural hearing loss TIA in 2009 Small traumatic R Pneumothorax 2011, treated without chest tube Sleep apnea uses CPAP at home Restless leg syndrome (Dr. 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 He use to drink glasses of wine occasionally but nothing to drink in the last year due to issues with gout No illicit drug use His mobility is impaired at times due to gallops and he will sometimes uses a walker, cane, or walk unassisted (Juan Manuel Lobato) Physical Exam Vital Signs Vital Signs Date Time Temp Pulse Resp B/P (MAP) Pulse Ox O2 Delivery O2 Flow Rate FiO2 02/09/18 07:00 97 Room Air 02/09/18 06:00 82 02/09/18 04:00 82 02/09/18 04:00 98.6 92 20 175/74 (107) 97 02/09/18 02:00 92 02/09/18 00:00 98.5 84 20 157/70 (99) 96 02/09/18 00:00 84 02/08/18 23:15 96 21 02/08/18 22:00 86 02/08/18 20:00 98 Room Air 02/08/18 20:00 99.5 92 19 187/77 (113) 99 02/08/18 20:00 92 02/08/18 18:00 87 02/08/18 16:00 82 02/08/18 16:00 98.4 82 18 132/60 (84) 99 02/08/18 14:00 81 02/08/18 12:00 86 Physical Exam GENERAL: This is a well-developed, well-nourished male who appears his stated age. He is sitting in the chair when seen and is not in any apparent distress. PSYCHOLOGICAL: Affect appears to be normal, readily interacts and reaches to shake hands. SKIN: Warm and dry with vascular skin changes to the distal lower extremities. HEENT: Normocephalic, atraumatic. PERRLA 3 mm brisk. MMM & pink, uvula midline, airway patent, tongue midline to protrusion. NECK: Midline cervical spine NTTP, no step offs or deformities palpated. Neck supple. No JVD. Trachea midline. RESPIRATORY: CTAB w/o W/R/R, equal excursion, nonlaboured, on RA. CARDIOVASCULAR: S1S2 w/irregularly irregular rhythm w/o M/G/R. Monitor is atrial fibrillation w/intermittently rapid ventricular rate, no ectopy noted. GASTROINTESTINAL: Abdomen soft, nontender, positive bowel sounds. MUSCULOSKELETAL: Moving all extremities spontaneously and purposefully to varying degrees. No evident clubbing or deformity noted. NEUROLOGICAL: Awake & alert. Garbled speech w/global aphasia. PERRLA 3 mm brisk, uvula midline, tongue midline to protrusion, intact shoulder & eyebrow shrug, appears to have mild droop to right when smiling. Follows some commands. Spontaneously & purposefully moving all extremities. Able to lift and hold LUE up, did resist practitioner w/4 to 4+/5 to left deltoid, biceps & triceps, weak hand intrinsics. Slightly lifted right forearm & hand up to shake hands but not able to hold up or resist. Picked up both lower extremities. Unable to assess fully assess lower extremities, did resist practitioner w/left quadriceps 4 to 4 +/5 and right 3+ to 4/5, left & right hamstring 4/5, left tibialis anterior 3/5 & right 4 to 4+/5, and left extensor hallucis 3/5 & right 4/5, but unable to get either iliopsoas or gastrocnemius. Laboratory Laboratory Tests Test 02/09/18 05:07 White Blood Count 7.0 Red Blood Count 2.88 Hemoglobin 8.5 Hematocrit 24.9 Mean Corpuscular Volume 86.6 Mean Corpuscular Hemoglobin 29.6 Mean Corpuscular Hemoglobin Concent 34.2 Red Cell Distribution Width 16.8 Platelet Count 228 Mean Platelet Volume 7.2 Prothrombin Time 12.7 Prothromb Time International Ratio 1.3 Blood Urea Nitrogen 22 Creatinine 0.91 Random Glucose 98 Calcium Level 8.4 Sodium Level 142 Potassium Level 4.2 Chloride Level 105 Carbon Dioxide Level 31.5 Anion Gap 6 Estimat Glomerular Filtration Rate 79 Date/Time Source Procedure Growth Status 02/07/18 22:29 Blood Peripheral Aerobic Blood Culture - Preliminary NO GROWTH IN 1 DAY Resulted 02/07/18 22:29 Blood Peripheral Anaerobic Blood Culture - Preliminary NO GROWTH IN 1 DAY Resulted 02/02/18 09:20 Sputum Endotracheal Gram Stain - Final Complete 02/02/18 09:20 Sputum Endotracheal Sputum Culture - Final HEAVY GROWTH NORMAL RESPIRATORY CHANTELL Complete 02/05/18 11:00 Urine Catheterized Urine Urine Culture - Final NO GROWTH IN 48 HOURS. Complete (Juan Manuel Lobato) Result Diagram: 02/09/18 0507 02/09/18 0507 Imaging Last 72 hours Impressions Chest X-Ray 02/07/18 0000 Signed Impressions: Service Date/Time: Wednesday, February 07, 2018 21:03 - CONCLUSION: Trace atelectasis and mild cardiomegaly. Juan Francisco Phan MD Brain MRI 02/07/18 0000 Signed Impressions: Service Date/Time: Wednesday, February 07, 2018 09:03 - CONCLUSION: Small discrete area of hemorrhage in the core of the left infarct. This measures 2.74 cm. Fabrice Tom MD FACR (Juan Manuel Lobato) Assessment and Plan Assessment and Plan Impression: Moderate size left MCA stroke w/left posterior occipital haemorrhagic component History of chronic atrial fibrillation w/long-term anticoagulation (warfarin) Improving motor function Still w/aphasia Plan: Patient is able to be transferred to [facility] for further inpatient therapy from Neurosurgery's perspective. Will discuss with Dr Stovall timing for resuming anticoagulation. ADDENDUM at 1553: Discussed patient with Dr Stovall. Will order repeat CT brain for AM. He would prefer to hold anticoagulation for 72 hours at least after repeat stable imaging of the brain. BET (Juan Manuel Lobato) Attending Statement The exam, history, and the medical decision-making described in the above note were completed with the assistance of the mid-level provider. I reviewed and agree with the findings presented. I attest that I had a [id number] encounter with the patient on the same day, and personally performed and documented my assessment and findings in the medical record. Discussed with family in patient room on 02/09/18. Recheck CT in AM and if no further change in hemorrhage, may restart anticoagulation if patient is high risk for thrombosis / embolic event. (Miki Stovall MD) Juan Manuel Lobato Feb 09, 2018 10:10 Miki Stovall MD Feb 10, 2018 00:07
--- NOTE | 2018-02-09 18:12 | HHI.DS ---
Discharge Summary Admission Date Jan 30, 2018 at 18:11 Discharge Date: Feb 10, 2018 Admitting Diagnosis (1) Acute ischemic stroke ICD Code: I63.9 - Cerebral infarction, unspecified Diagnosis: Principal Status: Acute (2) Respiratory failure, acute ICD Code: J96.00 - Acute respiratory failure, unspecified whether with hypoxia or hypercapnia Diagnosis: Secondary Status: Acute (3) Common femoral artery injury ICD Code: S75.009A - Unspecified injury of femoral artery, unspecified leg, initial encounter Diagnosis: Secondary Status: Acute (4) HTN (hypertension) ICD Code: I10 - Essential (primary) hypertension Diagnosis: Secondary (5) HLD (hyperlipidemia) ICD Code: E78.5 - Hyperlipidemia, unspecified Diagnosis: Secondary (6) Diabetes mellitus ICD Code: E11.9 - Type 2 diabetes mellitus without complications Diagnosis: Secondary Status: Chronic (7) Atrial fibrillation ICD Code: I48.91 - Unspecified atrial fibrillation Diagnosis: Secondary Status: Chronic (8) Warfarin anticoagulation ICD 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: 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 Diagnosis: Secondary Status: Chronic (9) Sleep apnea ICD Code: G47.30 - Sleep apnea, unspecified Diagnosis: Secondary Status: Chronic (10) CKD (chronic kidney disease) stage 4, GFR 15-29 ml/min ICD Code: N18.4 - Chronic kidney disease, stage 4 (severe) Diagnosis: Secondary Status: Chronic (11) Hypothyroid ICD Code: E03.9 - Hypothyroidism, unspecified Status: Chronic (12) Gout ICD Code: M10.9 - Gout, unspecified Diagnosis: Secondary Status: Chronic (13) Chronic diastolic (congestive) heart failure ICD Code: I50.32 - Chronic diastolic (congestive) heart failure Diagnosis: Secondary Status: Chronic Brief History 82-year-old gentleman with past medical history of chronic atrial fibrillation on anticoagulation with warfarin, hypertension, hyperlipidemia, prior TIA who was transferred from [facility] due to acute stroke. His had spoken with him around 12:30 on 01/29. When she returned home at 1:30 he was having difficulty speaking and right hemiplegia. He presented to [facility] with right facial droop, right hemiplegia, leftward gaze, nonverbal. CT brain demonstrated hyperdense left M1 and M2 segments. He was not a candidate for systemic TPA due to INR of 1.8 at outside hospital. CTA demonstrated thromboembolism of M1 and M2 segments. CT perfusion demonstrated large acute left MCA infarct without surrounding ischemic penumbra. Consultation was made with neurology at [facility] who recommended medical management. Family requested aggressive therapy and case was discussed with Dr. Baum and neuroradiology and patient was transferred to [facility] where he underwent thrombectomy by Dr. Shelby as family was accepting of increased risk of hemorrhage. There was difficulty achieving hemostasis at R groin site so he was taken emergently to [place] where he underwent repair of R femoral artery by Dr. Ayala. He was intubated in specials by Dr. Ames. Intraoperatively he received 800 crystalloid, EBL 450 mL, UOP was 700. Dr. Ayala discussed with Dr. Baum postoperatively and [facility] has been called for admission. Patient remains intubated. Family indicates he made some initial improvement between the onset of symptoms and leaving the outside hospital, able to produce some garbled speech and say "I love you". They also state that slight movement of right side is an improvement. Daughter states INR Was recently subtherapeutic at 1.4 on 01/22. CBC/BMP: 02/09/18 0507 02/09/18 0507 Significant Findings Laboratory Tests Test 02/07/18 04:54 02/08/18 09:10 02/09/18 05:07 Red Blood Count 3.12 MIL/MM3 (4.50-5.90) 3.19 MIL/MM3 (4.50-5.90) 2.88 MIL/MM3 (4.50-5.90) Hemoglobin 9.2 GM/DL (13.0-17.0) 9.3 GM/DL (13.0-17.0) 8.5 GM/DL (13.0-17.0) Hematocrit 27.0 % (39.0-51.0) 27.6 % (39.0-51.0) 24.9 % (39.0-51.0) Prothrombin Time 17.3 SEC (9.8-11.6) 12.7 SEC (9.8-11.6) 12.7 SEC (9.8-11.6) Random Glucose 107 MG/DL (74-106) Estimat Glomerular Filtration Rate 87 ML/MIN (>89) 87 ML/MIN (>89) 79 ML/MIN (>89) Procalcitonin 0.19 ng/mL (0.00-0.08) Blood Urea Nitrogen 22 MG/DL (7-18) Calcium Level 8.4 MG/DL (8.5-10.1) Hospital Course 82-year-old gentleman with past medical history of chronic atrial fibrillation on anticoagulation with warfarin, hypertension, hyperlipidemia, prior TIA who was transferred from [facility] due to acute stroke. His had spoken with him around 12:30 on 01/29. When she returned home at 1:30 he was having difficulty speaking and right hemiplegia. He presented to [facility] with right facial droop, right hemiplegia, leftward gaze, nonverbal. CT brain demonstrated hyperdense left M1 and M2 segments. He was not a candidate for systemic TPA due to INR of 1.8 at outside hospital. CTA demonstrated thromboembolism of M1 and M2 segments. CT perfusion demonstrated large acute left MCA infarct without surrounding ischemic penumbra. Consultation was made with neurology at [facility] who recommended medical management. Family requested aggressive therapy and case was discussed with Dr. Baum and neuroradiology and patient was transferred to [facility] where he underwent thrombectomy by Dr. Shelby as family was accepting of increased risk of hemorrhage. There was difficulty achieving hemostasis at R groin site so he was taken emergently to [place] where he underwent repair of R femoral artery by Dr. Ayala. He was intubated in specials by Dr. Ames. Intraoperatively he received 800 crystalloid, EBL 450 mL, UOP was 700. Dr. Ayala discussed with Dr. Baum postoperatively and [facility] has been called for admission. Patient remains intubated. 01/31: Appears more alert this morning. We will leave intubated because he will require sedation for MRI. Try to extubate after. 02/01: MRI completed, will start weaning trials. 02/02: Ct head yesterday showed evolving left sided stroke. Propofol held patient is awake follows commands from the left upper extremity. Flaccid on the right upper extremity. Moderate reinoso secretions from ET tube. Chest x-ray pending. Spontaneous breathing trials initiated 02/03: Extubated yesterday breathing comfortably. Globally aphasic. Moves LUE, follows commands on the same. Pleasant. Discussed with Dr. Baum lower blood pressure goal to 140-160. Start Coumadin once cleared by speech therapy 02/04: Episode of agitation early a.m., tried to get out of bed. Patient was given Haldol with improvement in agitation now sedated. Not following commands due to sedation but moving extremities except right upper. Possibly ICU delirium 02/05: Appears more lethargic today but wakes up to stimulation and follows commands on the left. Chest x-ray clear white count is normal. Did not receive any sedating medications overnight. I have requested ABG and CT of the head stat. Further recommendations based on results. INR is 2.2 02/06: agitated overnight. day/night orientation has been difficult. somnolent during the day and aroused at night. wbc normal. neuro exam stable, and somewhat improving this morning. inr stable at 2.2. 02/07: slept all night with melatonin. much more awake. less delirious. MRI read with small bleed visible- slightly larger per Dr. Brown. need to discuss timing of reinstitution of anticoagulation. INR 1.7. 02/08: spiked fever to 102 overnight. CXR clear, no secretions, cough, increased o2 requirement. no other changes. abx not started but blood cultures sent. labs pending. delirium continues to be improved. moving right side more briskly than before and crossing midline. 02/09: clinically much better today. awake, alert. remains aphasic. more movement in RUE. discussed with Dr. Coe: will need nsgy to clear for anticoagulation, but we both agree this can be done in inpatient rehab and we should not delay discharge for this. afebrile overnight. 02/10: ready for discharge to inpatient rehab. Pt Condition on Discharge: Stable Discharge Disposition: Rehab Inpatient Discharge Instructions DIET: Follow Instructions for: Heart Healthy Diet Activities you can perform: Regular-No Restrictions Rahat Diggs MD Feb 09, 2018 18:12
[2018-02-09] MEDS: CHLORHEXIDINE GLUCONATE 2 % 1 PACK (2 CLOTHS) TOP SCH (19:35)
--- NOTE | 2018-02-09 20:36 | HHI.PR ---
Subjective Remarks 82 YO Male with COPD,RUBEN,AF,CVA, s/p Clot removal On [place] Speech garbled but family able to understand him More awake and cooperative feeeding him Objective Vital Signs Vital Signs Date Time Temp Pulse Resp B/P (MAP) Pulse Ox O2 Delivery O2 Flow Rate FiO2 02/09/18 18:00 75 02/09/18 16:00 99.0 74 18 137/64 (88) 100 02/09/18 16:00 78 02/09/18 14:00 88 02/09/18 12:00 90 02/09/18 12:00 98.6 92 16 124/62 (82) 99 02/09/18 10:14 98 21 02/09/18 10:00 95 02/09/18 08:00 89 02/09/18 08:00 99.0 89 20 139/64 (89) 97 02/09/18 07:00 97 Room Air 02/09/18 06:00 82 02/09/18 04:00 82 02/09/18 04:00 98.6 92 20 175/74 (107) 97 02/09/18 02:00 92 02/09/18 00:00 98.5 84 20 157/70 (99) 96 02/09/18 00:00 84 02/08/18 23:15 96 21 02/08/18 22:00 86 I/O 02/08/18 02/08/18 02/08/18 02/09/18 02/09/18 02/09/18 07:00 15:00 23:00 07:00 15:00 23:00 Intake Total 120 ml 240 ml 120 ml 600 ml Output Total 200 ml Balance -80 ml 240 ml 120 ml 600 ml Intake Oral 120 ml 240 ml 120 ml 600 ml Output Urine Total 200 ml # Voids 5 5 4 4 # Bowel Movements 0 0 0 2 Result Diagram: 02/09/18 0507 02/09/18 0507 Objective Remarks GENERAL: MBMN Male, NAD SKIN: Warm and dry. HEAD: Normocephalic. EYES: No scleral icterus. No injection or drainage. NECK: Supple, trachea midline. No JVD or lymphadenopathy. CARDIOVASCULAR: Regular rate and rhythm without murmurs, gallops, or rubs. RESPIRATORY: Breath sounds equal bilaterally. No accessory muscle use. GASTROINTESTINAL: Abdomen soft, non-tender, nondistended. MUSCULOSKELETAL: No cyanosis, or edema. Weakness RUE BACK: Nontender without obvious deformity. No CVA tenderness. A/P Assessment and Plan IMPRESSION: 1. Respiratory failure, status post extubation. 2. Chronic obstructive pulmonary disease. 3. Obstructive sleep apnea. 4. Cerebrovascular accident, status post mechanical thrombectomy. 5. Hypertension. PLAN: Coumadin, monitor INR Aerosol prn Supplement 02 CPAP at night for RUBEN DW family at [facility] plans underway for rehab. Simone Faulkner MD Feb 09, 2018 20:36
[2018-02-09] MEDS: ATORVASTATIN 40 MG TAB PO SCH (20:52)
[2018-02-09] MEDS: MELATONIN 5 MG TAB PO SCH (20:52)
[2018-02-09] MEDS: RESP: IPRATROPIUM 0.5 MG/2.5 ML NEB NEB SCH (21:48)
[2018-02-10] VITALS (7 sets, daily range): BP systolic 147–172; BP diastolic 65–72; PULSE 80–98; RESP 21–29; TEMP 97.8–99.8; O2SAT 96–98
--- NOTE | 2018-02-10 05:52 | RADRPT ---
EXAM DATE/TIME: 02/10/2018 05:06 [place] COMPARISON: MRI BRAIN W/O CONTRAST, January 31, 2018, 11:29. MRI BRAIN W/O CONTRAST, February 07, 2018, 9:03. CT BRA IN W/O CONTRAST, February 05, 2018, 9:52. MRI BRAIN W/O CONTRAST, February 05, 2018, 11:21. INDICATIONS : Petechial hemorrhage RADIATION DOSE: 40.42 CTDIvol (mGy) MEDICAL HISTORY : Stroke. Cardiovascular disease Hypertension. SURGICAL HISTORY : None. ENCOUNTER: Initial ACUITY: 1 day PAIN SCALE: Non-responsive LOCATION: cranial TECHNIQUE: Multiple contiguous axial images were obtained of the head. Using automated exposure control and adj ustment of the mA and/or kV according to patient size, radiation dose was kept as low as reasonably a chievable to obtain optimal diagnostic quality images. DICOM format image data is available electro nically for review and comparison. FINDINGS: Evolving subacute infarct of the left parietal lobe again noted. There is a focus of left parieto-occ ipital parenchymal hemorrhage it measures approximately 1.7 cm in size, not significantly changed. Th is does have a somewhat masslike appearance. I don't see that the patient has had a recent contrast e nhanced study and if this is the case, to suggest an MRI of the brain with and without contrast be do ne to exclude an underlying mass lesion. There is no midline shift. No evidence of a new or acute infarct or hemorrhage. Mild ventriculomegaly again noted but probably chronic. CONCLUSION: Evolving left parieto-occipital infarct with a small focus of associated parenchymal hemorrhage all n ot significantly changed. Please see above. No acute change. No midline shift. Juan Francisco Phan MD on February 10, 2018 at 5:47 Board Certified Radiologist. This report was verified electronically.
[2018-02-10 05:57] LABS: HEMATOCRIT 23.5 % (39.0-51.0); HEMOGLOBIN 8.1 GM/DL (13.0-17.0); MEAN CELL VOLUME 86.5 FL (80.0-100.0); MEAN CORPUSCULAR HEMOGLOBIN 29.7 PG (27.0-34.0); MEAN CORPUSCULAR HGB CONC 34.3 % (32.0-36.0); MEAN PLATELET VOLUME 7.3 FL (7.0-11.0); PLATELET COUNT 226 TH/MM3 (150-450); RED BLOOD COUNT 2.72 MIL/MM3 (4.50-5.90); RED CELL DISTRIBUTION WIDTH 16.6 % (11.6-17.2); WHITE BLOOD COUNT 6.7 TH/MM3 (4.0-11.0)
[2018-02-10 06:04] LABS: INTERNATIONAL NORMALIZED RATIO 1.1 RATIO; PROTHROMBIN TIME - PATIENT 11.4 SEC (9.8-11.6)
[2018-02-10 06:19] LABS: BICARBONATE 30.2 MEQ/L (21.0-32.0); CALCIUM 8.3 MG/DL (8.5-10.1); CREATININE 0.84 MG/DL (0.60-1.30)
[2018-02-10] MEDS: LEVOTHYROXINE SODIUM 75 MCG TAB PO SCH (06:45)
[2018-02-10] MEDS: RESP: IPRATROPIUM 0.5 MG/2.5 ML NEB NEB SCH (07:52)
[2018-02-10] MEDS: LISINOPRIL 10 MG TAB PO SCH (08:03)
[2018-02-10] MEDS: LANSOPRAZOLE SOLUTAB 30 MG TAB G-TUBE SCH (08:04)
[2018-02-10] MEDS: DOCUSATE SODIUM 50 MG/SENNA 8.6 MG TAB PO SCH (09:00)
[2018-02-10] MEDS: SODIUM CHLORIDE 0.9% FLUSH 10 ML FLUSH IV FLUSH SCH (09:00)
--- NOTE | 2018-02-10 11:12 | HHI.NSPN ---
(Juan Manuel Lobato) History Chief Complaint: Unable to obtain due to the patient's aphasia. (Juan Manuel Lobato) Interval History 02/09: Patient admitted on - for a large left MCA stroke. Patient is improving and ready to be transferred to [facility] for further inpatient therapy. Neurousurgery was consulted to evaluate for when anticoagulation would be able to be resumed due to a history of chronic atrial fibrillation. 02/10: The patient is sitting up with the bed in the chair position. He is being fed his breakfast by his daughter. He does move the upper extremities spontaneously. He is not able to initiate any lower extremity motor response sitting up. (Juan Manuel Lobato) System Review Comments Unable to obtain due to the patient's aphasia. (Juan Manuel Lobato) Exam Results 02/08/18 02/08/18 02/09/18 02/09/18 02/10/18 02/10/18 06:00 18:00 06:00 18:00 06:00 18:00 Intake Total 120 ml 240 ml 120 ml 600 ml Output Total 200 ml Balance -80 ml 240 ml 120 ml 600 ml Intake Oral 120 ml 240 ml 120 ml 600 ml Output Urine Total 200 ml # Voids 5 5 4 4 4 # Bowel Movements 0 0 0 2 1 Vital Signs Date Time Temp Pulse Resp B/P (MAP) Pulse Ox O2 Delivery O2 Flow Rate FiO2 02/10/18 08:00 95 02/10/18 08:00 98.1 95 21 150/71 (97) 98 02/10/18 07:00 97 Room Air 02/10/18 06:00 98 02/10/18 04:00 99.2 86 22 172/72 (105) 96 02/10/18 04:00 86 02/10/18 02:00 92 02/10/18 00:00 99.8 98 29 150/65 (93) 98 02/10/18 00:00 98 02/09/18 22:00 100 02/09/18 21:48 96 21 02/09/18 20:00 98 02/09/18 20:00 99.3 98 25 122/71 (88) 100 02/09/18 19:00 98 Room Air 02/09/18 18:00 75 02/09/18 16:00 99.0 74 18 137/64 (88) 100 02/09/18 16:00 78 02/09/18 14:00 88 02/09/18 12:00 90 02/09/18 12:00 98.6 92 16 124/62 (82) 99 02/09/18 10:14 98 21 02/09/18 10:00 95 02/09/18 08:00 89 02/09/18 08:00 99.0 89 20 139/64 (89) 97 02/09/18 07:00 97 Room Air 02/09/18 06:00 82 02/09/18 04:00 82 02/09/18 04:00 98.6 92 20 175/74 (107) 97 02/09/18 02:00 92 02/09/18 00:00 98.5 84 20 157/70 (99) 96 02/09/18 00:00 84 02/08/18 23:15 96 21 02/08/18 22:00 86 02/08/18 20:00 98 Room Air 02/08/18 20:00 99.5 92 19 187/77 (113) 99 02/08/18 20:00 92 02/08/18 18:00 87 02/08/18 16:00 82 02/08/18 16:00 98.4 82 18 132/60 (84) 99 02/08/18 14:00 81 02/08/18 12:00 86 02/08/18 10:00 82 02/08/18 08:00 96 02/08/18 07:00 97 Room Air 02/08/18 06:00 90 02/08/18 04:00 89 02/08/18 04:00 99.0 89 22 156/76 (102) 98 02/08/18 02:00 93 02/08/18 00:00 99.2 84 19 141/65 (90) 98 02/08/18 00:00 93 02/07/18 22:00 88 02/07/18 22:00 100.0 88 24 159/63 (95) 98 02/07/18 20:30 97 02/07/18 20:00 102.4 119 24 191/82 (118) 96 02/07/18 20:00 119 02/07/18 19:00 100 Room Air (Juan Manuel Lobato) Physical Examination GENERAL: The patient is sitting w/the bed in the chair position. His daughter is feeding him breakfast. He readily interacts and reaches to shake hands. He is not in any apparent distress. HEENT: Normocephalic, atraumatic. PERRLA 2 mm brisk. MUSCULOSKELETAL: Moving upper extremities spontaneously and purposefully to varying degrees. No evident clubbing or deformity noted. NEUROLOGICAL: Awake & alert. Garbled speech w/global aphasia. PERRLA 3 mm brisk. Follows some commands. Spontaneously & purposefully moving upper extremities as well as to command. LUE stronger than RUE. Difficulty w/initiating lower extremity motor w/legs dangling. Weakly able to hold LLE up for a few seconds if lifted up, but not able to do RLE. (Juan Manuel Lobato) Lab, Micro, Other Results Recent Impressions Head CT 02/10/18 0600 Signed Impressions: Service Date/Time: Saturday, February 10, 2018 05:06 - CONCLUSION: Evolving left parieto-occipital infarct with a small focus of associated parenchymal hemorrhage all not significantly changed. Please see above. No acute change. No midline shift. Juan Francisco Phan MD Laboratory Tests Test 02/08/18 09:10 02/09/18 05:07 02/10/18 05:23 White Blood Count 7.3 TH/MM3 7.0 TH/MM3 6.7 TH/MM3 Red Blood Count 3.19 MIL/MM3 2.88 MIL/MM3 2.72 MIL/MM3 Hemoglobin 9.3 GM/DL 8.5 GM/DL 8.1 GM/DL Hematocrit 27.6 % 24.9 % 23.5 % Mean Corpuscular Volume 86.6 FL 86.6 FL 86.5 FL Mean Corpuscular Hemoglobin 29.2 PG 29.6 PG 29.7 PG Mean Corpuscular Hemoglobin Concent 33.7 % 34.2 % 34.3 % Red Cell Distribution Width 16.6 % 16.8 % 16.6 % Platelet Count 240 TH/MM3 228 TH/MM3 226 TH/MM3 Mean Platelet Volume 7.6 FL 7.2 FL 7.3 FL Prothrombin Time 12.7 SEC 12.7 SEC 11.4 SEC Prothromb Time International Ratio 1.3 RATIO 1.3 RATIO 1.1 RATIO Blood Urea Nitrogen 18 MG/DL 22 MG/DL 22 MG/DL Creatinine 0.84 MG/DL 0.91 MG/DL 0.84 MG/DL Random Glucose 99 MG/DL 98 MG/DL 102 MG/DL Calcium Level 8.9 MG/DL 8.4 MG/DL 8.3 MG/DL Sodium Level 141 MEQ/L 142 MEQ/L 143 MEQ/L Potassium Level 4.0 MEQ/L 4.2 MEQ/L 4.2 MEQ/L Chloride Level 104 MEQ/L 105 MEQ/L 105 MEQ/L Carbon Dioxide Level 31.8 MEQ/L 31.5 MEQ/L 30.2 MEQ/L Anion Gap 5 MEQ/L 6 MEQ/L 8 MEQ/L Estimat Glomerular Filtration Rate 87 ML/MIN 79 ML/MIN 87 ML/MIN Procalcitonin 0.19 ng/mL (Juan Manuel oLbato) Medical Decision Making Impression and Plan Impression: Moderate size left MCA stroke w/left posterior occipital haemorrhagic component History of chronic atrial fibrillation w/long-term anticoagulation (warfarin) Improving motor function Still w/aphasia Patient is doing well. Still w/global aphasia but readily interacts and able to follow some simple commands. Moving BUE spontaneously & purposefully as well as to command w/L>R. Weak to BLE, difficulty to initiate motor movements with legs dangling in chair. Plan: Patient is able to be transferred to [facility] for further inpatient therapy from Neurosurgery's perspective. Patient is able to resume anticoagulation from Neurosurgery's perspective with the understanding that there is a risk for recurrence of bleeding. Neurosurgery will sign off at this time. If we may be of further assistance please consult the service as needed. Thank you for allowing us to participate in your patient's care. (Juan Manuel Lobato) Attending Statement The exam, history, and the medical decision-making described in the above note were completed with the assistance of the mid-level provider. I reviewed and agree with the findings presented. I attest that I had a [id number] encounter with the patient on the same day, and personally performed and documented my assessment and findings in the medical record. On my examination of 02/10/2018, patient out of bed in chair. His family is in the room with him. He is more awake today. He remains with significant dysarthria. He vocalizes but essentially nonverbal. He does not follow commands. Persistent right hemiparesis. He can lift his left lower extremity moderate strength. Follow-up CT scan head reveals no new hemorrhage. Discussed with family May proceed with anticoagulation from a neurosurgical standpoint with a relatively low risk. However the family does understand that there is some risk of recurrent intracranial hemorrhage with anticoagulation, which must be weighed against the risk of stroke in view of his chronic atrial fibrillation. Family appears to understand and agrees with overall plan. He is stable for inpatient rehabilitation from a neurosurgical standpoint. (Miki Stovall MD) Juan Manuel Lobato Feb 10, 2018 11:12 Miki Stovall MD Feb 11, 2018 23:44
== END 2018-02-10 12:22 | DRG 23 ==
LOC: N03B 18:11 → HPAC 01-31 05:04 → N03A 01-31 08:19
PROVIDERS: ADMIT Specialist; ATTEND Specialist
PROC: 5A1945Z Respiratory Ventilation, 24-96 Consecutive Hours (ICD-10-PCS; 2018-01-30)
PROC: 0Y3J0ZZ Control Bleeding in Left Lower Leg, Open Approach (ICD-10-PCS; 2018-01-30)
PROC: 04QL0ZZ Repair Left Femoral Artery, Open Approach (ICD-10-PCS; 2018-01-30)
PROC: 0W9F00Z Drainage of Abdominal Wall with Drainage Device, Open Approach (ICD-10-PCS; 2018-01-30)
PROC: 03CG3ZZ Extirpation of Matter from Intracranial Artery, Percutaneous Approach (ICD-10-PCS; principal; 2018-01-30 19:03)
PROC: 05HM33Z Insertion of Infusion Device into Right Internal Jugular Vein, Percutaneous Approach (ICD-10-PCS; 2018-01-31)
DX: I63.512 Cerebral infarction due to unspecified occlusion or stenosis of left middle cerebral artery (principal); J96.00 Acute respiratory failure, unspecified whether with hypoxia or hypercapnia; I61.9 Nontraumatic intracerebral hemorrhage, unspecified; G93.40 Encephalopathy, unspecified; J44.9 Chronic obstructive pulmonary disease, unspecified; S75.001A Unspecified injury of femoral artery, right leg, initial encounter; I48.2 Chronic atrial fibrillation; I50.32 Chronic diastolic (congestive) heart failure; I13.0 Hypertensive heart and chronic kidney disease with heart failure and stage 1 through stage 4 chronic kidney disease, or unspecified chronic kidney disease; R47.01 Aphasia; N18.4 Chronic kidney disease, stage 4 (severe); G81.91 Hemiplegia, unspecified affecting right dominant side; I97.51 Accidental puncture and laceration of a circulatory system organ or structure during a circulatory system procedure; H53.461 Homonymous bilateral field defects, right side; E11.22 Type 2 diabetes mellitus with diabetic chronic kidney disease; G25.81 Restless legs syndrome; E78.5 Hyperlipidemia, unspecified; G47.33 Obstructive sleep apnea (adult) (pediatric); E03.9 Hypothyroidism, unspecified; M10.9 Gout, unspecified; R47.9 Unspecified speech disturbances; R29.810 Facial weakness; Z86.73 Personal history of transient ischemic attack (TIA), and cerebral infarction without residual deficits; Z99.81 Dependence on supplemental oxygen; Z82.3 Family history of stroke; Z82.49 Family history of ischemic heart disease and other diseases of the circulatory system; Z87.891 Personal history of nicotine dependence; Z79.01 Long term (current) use of anticoagulants; Y83.8 Other surgical procedures as the cause of abnormal reaction of the patient, or of later complication, without mention of misadventure at the time of the procedure; Y82.8 Other medical devices associated with adverse incidents; Y92.234 Operating room of hospital as the place of occurrence of the external cause; R47.1 Dysarthria and anarthria; K42.9 Umbilical hernia without obstruction or gangrene; H90.5 Unspecified sensorineural hearing loss
CPT/HCPCS: 36556; 36600; 61645; 70450; 70551; 71045; 76937; 80048; 80053; 81001; 82607; 82805; 83735; 84100; 84132; 84145; 84155; 84443; 84484; 85014; 85018; 85025; 85027; 85384; 85610; 85730; 86850; 86900; 86901; 86920; 87040; 87070; 87077; 87086; 87186; 87205; 87641; 93005; 94002; 94003; 94150; 94640; 94664; 94667; 94668; 95819; C1760; C1769; C1887; C1894; J0330; J0360; J0690; J1630; J1644; J1940; J2250; J2370; J2405; J2720; J3010; J3480; J7030; J7050; J7060; J7120; J7613; J7644; Q9967

== ENCOUNTER 2018-02-13 09:31 | Inpatient (IN) | payer MEDICARE, BC ==
[~2018-02-13] VITALS: Ht 172.7 cm; Wt 90.4 kg
[2018-02-13] VITALS (10 sets, daily range): BP systolic 143–159; BP diastolic 65–68; PULSE 66–76; RESP 20–22; TEMP 98.4–100.1; O2SAT 99–100
[~2018-02-13 09:31] MED LIST changes: +ATOR40TA16 PO; +CHLOR50 PO; +CHOL5000 PO; +CITA20TA4 PO; +CLON0.1T PO; +COLC1CAP3 PO; +DOXA1TAB35 PO; +DUTA1CAP2 PO; -GLYCOPYRROLATE 1 MG/5 ML SYRINGE IV PUSH ONE; -LABETALOL HCL 100 MG/20 ML VIAL IV ONE; -LACTATED RINGER'S 1000 ML INJ 2,000 ML IV ONE; +LEVO75TA3 PO; +MEDR4PAK PO; +MELA5 PO; +METO5TAB3 PO; -PHENYLEPH/NS 1000 MCG/10 ML SYR IV ONE; -PROPOFOL 200 MG/20 ML AMP IV ONE; -ROCURONIUM INJ 50 MG/5 ML SYRINGE IV PUSH ONE; -SODIUM CHLOR 0.9% 1000 ML INJ 2,000 ML IV ONE; +SPIRCAP INH; -SUCCINYLCHOLINE CHLORIDE 200 MG/10 ML VIAL IV ONE; +ULOR40TA; +VALS1TAB65 PO; +VENTAER INH; +VITACAP7 PO; +WARF-23 PO; -ceFAZolin INJ 1,000 MG VIAL IV ONE; -ePHEDrine/NS 25 MG/5 ML SYRINGE IV ONE; -hydrALAZINE HCL 20 MG/ML VIAL IV ONE
[2018-02-13] MEDS ORDERED: NALOXONE HCL 0.4 MG/ML AMP IV PUSH PRN (11:00)
[2018-02-13] MEDS ORDERED: SENNOSIDES 8.6 MG TAB PO PRN (11:00)
[2018-02-13] MEDS ORDERED: ACETAMINOPHEN 325 MG TAB PO PRN (11:00)
[2018-02-13] MEDS ORDERED: LACTULOSE SYRUP 20 GM/30 ML CUP PO PRN (11:00)
[2018-02-13] MEDS ORDERED: SODIUM CHLORIDE 0.9% FLUSH 10 ML FLUSH IV FLUSH PRN (11:00)
[2018-02-13] MEDS ORDERED: MAGNESIUM HYDROXIDE SUSP 30 ML CUP PO PRN (11:00)
[2018-02-13] MEDS ORDERED: PROCHLORPERAZINE 25 MG SUPP RECTAL PRN (11:00)
[2018-02-13] MEDS ORDERED: ONDANSETRON HCL 4 MG/2 ML VIAL IVP PRN (11:00)
[2018-02-13] MEDS ORDERED: BISACODYL 10 MG SUPP RECTAL PRN (11:00)
--- NOTE | 2018-02-13 11:01 | HHI.HP ---
HPI Service [facility] Hospitalists Primary Care Physician Unknown Admission Diagnosis Diagnoses: Chief Complaint: noted obtunded while at rehab Travel History International Travel<30 Days: No Contact w/Intl Traveler <30 Da: No Traveled to Known Affected Are: No History of Present Illness The patient is a 82-year-old male with a past medical history significant for HTN, HLD, TIA, CHF, A. fib, CKD, hypothyroidism, sleep apnea, restless leg syndrome, and gout who was originally admitted to [facility] for workup of acute stroke. reportedly saw him on 01/29 around 1230 and later returned around 130 to find patient with difficulty speaking and right hemiaplasia. CT of the brain demonstrated hyperdense left M1 and M2 segments, not a candidate for TPA due to INR of 1.8. CTA showed demonstrated thromboembolism of M1 and M2 segments. CT perfusion demonstrated large acute left MCA infarct without surrounding ischemic penumbra. [facility] neurology contacted [facility] neurologist per family request of aggressive treatment. Case was discussed with Dr. Baum and patient was transferred to [facility] and underwent thrombectomy by Dr. Shelby as family was accepting of increased risk of hemorrhage. Procedure was complicated due to right groin bleeding and patient underwent emergent repair of right femoral artery by . Subsequently patient underwent CT of the head which showed an evolving left-sided stroke, MRI showed small bleed slightly larger as noted per neurologist. During his stay he also suffered agitation and delirium which gradually improved. On 02/08 T-max of 102 was recorded and patient had chest x- ray performed which was clear, lobato cultures done with no source of infection found. Patient was transferred to [place] inpatient rehabilitation on 02/10 after being cleared by both neurology and neurosurgery for anticoagulation with Coumadin also patient and faily aware of risk of bleeding. Patient was doing relatively well until yesterday. According to the nurse and patient's daughters at bedside since last night patient has had an altered mental status and was been lethargic and had some roving eye movements periodically and was moving his right leg back and forth. Says symptoms are similar to the initial presentation of stroke. This morning patient underwent a head CT which showed slight increase in hemorrhagic conversion in the left parietal lobe in addition to pre-existing areas of ischemic stroke with previous hemorrhage in the left temporoparietal region. Patient is altered mental status discussed with Dr Ramirez for stat transfer to ICU for close observation as patient is deteriorating. ABG reassuring however patient with more labour breathing. Patient is noted obtunded and deteriorating, I called Dr Zelaya from ICU as patient is obtunded and with labour breathing for evaluation EEG no seizure activity. INR was 1.2 this morning. Patient did undergo CT abdomen pelvis a few days ago for elevated LFTs which was unremarkable except for some gallbladder sludge. LFTs improved on todays labs. Patient is intubated by Dr Zelaya , appreciate Review of Systems ROS Limitations: Clinical Condition, Altered Mental Status, Unresponsive Except as stated in HPI: all other systems reviewed are Neg Past Family Social History Past Medical History Hypertension Hyperlipidemia Chronic CHF with reportedly preserved EF Hypothyroidism Chronic atrial fibrillation Chronic kidney disease (Stage IV per daughter) Sensoroneural hearing loss TIA in 2009 Small traumatic R Pneumothorax 2011, treated without chest tube Sleep apnea uses CPAP at home Restless leg syndrome (Dr. 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 Family History Father: Stroke Mother: HTN Social History Tobacco: Smokes cigarettes in 20s and 30s Alcohol: Occasional glass of wine none in the past year No reported illicit drug use Physical Exam Physical Exam GENERAL: This is a critically ill patient, obtunded, opening eyes and right leg spontaneously. SKIN: Pale. Cool and dry. HEAD: Atraumatic. Normocephalic. No temporal or scalp tenderness. EYES: Pupils equal round and reactive. Extraocular motions intact. No scleral icterus. No injection or drainage. ENT: Nose without bleeding, purulent drainage or septal hematoma. Throat without erythema, tonsillar hypertrophy or exudate. Uvula midline. Airway patent. NECK: Trachea midline. No JVD or lymphadenopathy. Supple, nontender, no meningeal signs. CARDIOVASCULAR: Regular rate and rhythm without murmurs, gallops, or rubs. RESPIRATORY: Good air entry bilaterally, scattered rhonchi, no wheezing or crackles. GASTROINTESTINAL: Abdomen soft, non-tender, nondistended. No hepato-splenomegaly , or palpable masses. No guarding. MUSCULOSKELETAL: Asad noted in the right groin surgical site which are clean dry and intact.. Extremities without clubbing, cyanosis, or edema. NEUROLOGICAL: Obtunded. Not following commands. Right hemiparesi. Imaging Last Impressions Chest X-Ray 02/13/18 0000 Signed Impressions: Service Date/Time: Tuesday, February 13, 2018 12:50 - CONCLUSION: 1. Adequate placement of endotracheal tube. 2. Left basal atelectasis. MD Alyce Durham VTE Risk Assessment Caprini VTE Risk Assessment: Mod/High Risk (score >= 2) Caprini Risk Assessment Model Point Value = 1 Point Value = 2 Point Value = 3 Point Value = 5 Age 41-60 Minor surgery BMI > 25 kg/m2 Swollen legs Varicose veins or History of unexplained or recurrent spontaneous Oral contraceptives or hormone replacement Sepsis (< 1 month) Serious lung disease, including pneumonia (< 1 month) Abnormal pulmonary function Acute myocardial infarction Congestive heart failure (< 1 month) History of inflammatory bowel disease Medical patient at bed rest Age 61-74 Arthroscopic surgery Major open surgery (> 45 min) Laparoscopic surgery (> 45 min) Malignancy Confined to bed (> 72 hours) Immobilizing plaster cast Central venous access Age >= 75 History of VTE Family history of VTE Factor V Leiden Prothrombin [id number] Lupus anticoagulant Anticardiolipin antibodies Elevated serum homocysteine Heparin-induced thrombocytopenia Other congenital or acquired thrombophilia Stroke (< 1 month) Elective arthroplasty Hip, pelvis, or leg fracture Acute spinal cord injury (< 1 month) Prophylaxis Regimen Total Risk Factor Score Risk Level Prophylaxis Regimen 0-1 Low Early ambulation 2 Moderate Order ONE of the following: *Sequential Compression Device (SCD) *Heparin 5000 units SQ BID 3-4 Higher Order ONE of the following medications: *Heparin 5000 units SQ TID *Enoxaparin/Lovenox 40 mg SQ daily (WT < 150 kg, CrCl > 30 mL/min) *Enoxaparin/Lovenox 30 mg SQ daily (WT < 150 kg, CrCl > 10-29 mL/min) *Enoxaparin/Lovenox 30 mg SQ BID (WT < 150 kg, CrCl > 30 mL/min) AND/OR *Sequential Compression Device (SCD) 5 or more Highest Order ONE of the following medications: *Heparin 5000 units SQ TID (Preferred with Epidurals) *Enoxaparin/Lovenox 40 mg SQ daily (WT < 150 kg, CrCl > 30 mL/min) *Enoxaparin/Lovenox 30 mg SQ daily (WT < 150 kg, CrCl > 10-29 mL/min) *Enoxaparin/Lovenox 30 mg SQ BID (WT < 150 kg, CrCl > 30 mL/min) AND *Sequential Compression Device (SCD) Assessment and Plan Assessment and Plan 82-year-old male with: Ischemic stroke involving left MCA territory with hemorrhagic transformation Worsening encephalopathy Fever Acute respiratory failure requiring mechanical ventilation for airway protection Uncontrolled hypertension Elevated LFTs COPD Hyperlipidemia Chronic CHF with reportedly preserved EF Hypothyroidism Chronic atrial fibrillation Chronic kidney disease Sensoroneural hearing loss Sleep apnea uses CPAP at home Restless leg syndrome CT head done on 02/13 at [place] reviewed: Left MCA territory ischemic infarct with areas of hemorrhage involving left temporoparietal region some of which are new. Follow neuro checks. EEG ordered no seizure activity. New ischemic stroke versus sepsis as a cause for worsening neurologic status. MRI brain for further evaluation. Ordered IV Keppra , continue 500 mg twice daily Keppra. Neurology Dr. Barnhart and neurosurgery Dr. Ledbetter consulted. Patient intubated for airway protection by junior legal secretary Dr Zelaya . IV hydration, labetalol as needed to keep SBP below 150 mmHg. Hold Coumadin. Continue other antihypertensives via OG tube. Pulmonary: Intubated for airway protection by junior legal secretary ff. Elevated LFTs noted. Add GGT. Sludge in gallbladder on recent CAT. Trend LFTs. Renal/: IV hydration, strict intake output, monitor and replete electrolytes, follow BUN/creatinine. ID: Fever possibly infectious versus central in origin. Normal white count. Concern for aspiration. Lobato cultured. Empiric abx . Endocrine: Watch for hypoglycemia, SSI for glycemic control as needed. Heme: Follow CBC and coags. Coumadin to be held in view of new area of hemorrhage on CT. initiate DVT prophylaxis with Lovenox when okay with neurosurgery and neurology. Prophylaxis: PPI/SCDs. Continue management per junior legal secretary. Discussed with the nurse, patient's daughters, Actuary Manager Dr Zelaya Code Status full code Physician Certification 2 Midnight Certification Type: Admission for Inpatient Services Order for Inpatient Services The services are ordered in accordance with Medicare regulations or non- Medicare payer requirements, as applicable. In the case of services not specified as inpatient-only, they are appropriately provided as inpatient services in accordance with the 2-midnight benchmark. Estimated LOS (days): 3 days is the estimated time the patient will need to remain in the hospital, assuming treatment plan goals are met and no additional complications. Post-Hospital Plan: Not yet determined Blanca Green MD Feb 13, 2018 11:00
[2018-02-13] MEDS ORDERED: ONDANSETRON HCL 4 MG/2 ML VIAL IV PUSH PRN (11:15)
[2018-02-13] MEDS ORDERED: cloNIDine HCL 0.1 MG TAB PO PRN (11:15)
[2018-02-13] MEDS ORDERED: ENALAPRILAT 1.25 MG/ML VIAL IV PUSH PRN (11:15)
[2018-02-13] MEDS ORDERED: LABETALOL HCL 100 MG/20 ML VIAL IV PUSH PRN (11:15)
[2018-02-13] MEDS ORDERED: ETOMIDATE 40 MG/20 ML VIAL ONE (11:54)
[2018-02-13] MEDS ORDERED: ROCURONIUM INJ 50 MG/5 ML VIAL ONE (11:54)
[2018-02-13] MEDS ORDERED: ROCURONIUM INJ 50 MG/5 ML VIAL IV ONE (12:00)
[2018-02-13] MEDS ORDERED: ETOMIDATE 20 MG/10 ML VIAL IV PUSH ONE (12:00)
[2018-02-13] MEDS ORDERED: PROPOFOL 500 MG/50 ML INJ 50 ML ONE ×3 (12:21→18:36)
[2018-02-13] MEDS ORDERED: PROPOFOL 1000 MG/100 ML INJ 100 ML IV PRN (12:45)
[2018-02-13] MEDS ORDERED: levETIRAcetam INJ 100 ML IV ONE (13:00)
--- NOTE | 2018-02-13 13:12 | HHI.GIFU ---
Subjective Remarks Patient is currently in the intensive care setting Currently being intubated per liquor establishment manager and team Abdomen bloated, but patient is also being bag mask at this time Currently obtunded, not responding to verbal stimuli Minimal soft bowel sounds Afebrile (Marilynn Louise) Objective Vitals I&O Vital Signs Date Time Temp Pulse Resp B/P (MAP) Pulse Ox O2 Delivery O2 Flow Rate FiO2 02/13/18 12:30 100 50 02/13/18 12:30 Ventilator 50 Physical Exam HEENT: Pale, normocephalic; atraumatic; no jaundice. Currently being intubated per ETT NECK: Neck is supple, no JVD, CHEST: Chest diminished breath sounds, currently receiving some bag mask during intubation phase CARDIAC: RRR ABDOMEN: Soft, tympanic air distention , no palpable hepatosplenomegaly; bowel sounds soft, hypoactive EXTREMITIES: No edema. SKIN: Turgor thin, pale; no rash; no jaundice. FOUNTAIN BRUSH ASSEMBLER: Obtunded, (Marilynn Louise) Assessment and Plan Plan Mr. Ramirez was a new consult yesterday while up on the acute rehab floor room 812. It was noted he had elevated LFTs with AST 136 and ALT 95. During my exam patient was drowsy, but daughter stated that he was just tired. With continued verbal stimuli patient did respond with very simple 1 word answers. History of previous left-sided CVA approximately 2 weeks ago, status post emergent thrombectomy and was currently on the rehab floor for strengthening and conditioning. Patient had elevated alkaline phosphatase of 131, hemoglobin had dropped in a 24-hour period from 8.1-7.1. It was noted per his daughter Geeta that he had had green with yellow stool the day before. 1 month before admission to the hospital acute care patient had had some nausea and vomiting acute onset which resolved and 2 weeks later patient had an upper episode around the time of his stroke. He currently had some right-sided weakness residual from the left CVA. Our plan was to consider HIDA scan, CT of the abdomen to evaluate for gallstones and EGD for today. Patient became increasingly lethargic so EGD was put on hold. CT of abdomen showed no obstruction, probable right sided hematoma which could have been the source of his hemoglobin dropping. Plan Monitor LFTs Any procedures are on hold for now unless emergent Spoke with family members who are here for supportive care PPI IV Antiemetics Further recommendations will be based on symptoms and patient's plan of care during this hospital stay Patient was seen per myself and Dr. Pride, note was written on her behalf (Marilynn Louise) Marilynn Louise Feb 13, 2018 13:12 Izzy Pride MD Feb 13, 2018 16:37
--- NOTE | 2018-02-13 13:16 | RADRPT ---
EXAM DATE/TIME: 02/13/2018 12:50 [facility] COMPARISON: CHEST SINGLE AP, February 13, 2018, 0:52. INDICATIONS : Post intubation. MEDICAL HISTORY : Chronic obstructive pulmonary disease. Hypertension Stroke. SURGICAL HISTORY : None. ENCOUNTER: Initial ACUITY: 2 weeks PAIN SCORE: Non-responsive. LOCATION: Bilateral chest FINDINGS: A single view of the chest demonstrates left basilar density. Endotracheal tube 3.0 cm above the kristine na. Nasogastric tube tip in stomach. Cardiomegaly. Right lung clear. Osseous structures are intact. CONCLUSION: 1. Adequate placement of endotracheal tube. 2. Left basal atelectasis. Garret De Leon MD on February 13, 2018 at 13:14 Board Certified Radiologist. This report was verified electronically.
[2018-02-13 13:33] LABS: AUTOMATED NEUTROPHIL # 4.1 TH/MM3 (1.8-7.7); BASOPHIL % 0.3 % (0.0-2.0); EOSINOPHIL % 0.1 % (0.0-4.0); HEMATOCRIT 25.6 % (39.0-51.0); HEMOGLOBIN 8.6 GM/DL (13.0-17.0); LYMPH % 8.5 % (9.0-44.0); LYMPHOCYTE # 0.4 TH/MM3 (1.0-4.8); MEAN CELL VOLUME 85.1 FL (80.0-100.0); MEAN CORPUSCULAR HEMOGLOBIN 28.5 PG (27.0-34.0); MEAN CORPUSCULAR HGB CONC 33.5 % (32.0-36.0); MEAN PLATELET VOLUME 7.3 FL (7.0-11.0); MONOCYTE # 0.4 TH/MM3 (0-0.9); NEUT % 83.1 % (16.0-70.0); PLATELET COUNT 344 TH/MM3 (150-450); RED CELL DISTRIBUTION WIDTH 15.7 % (11.6-17.2)
[2018-02-13 13:48] LABS: ALBUMIN 2.3 GM/DL (3.4-5.0); ALT (GPT) 102 U/L (12-78); AST (GOT) 91 U/L (15-37); BICARBONATE 31.3 MEQ/L (21.0-32.0); BLOOD UREA NITROGEN 23 MG/DL (7-18); CALCIUM 8.2 MG/DL (8.5-10.1); CHLORIDE 103 MEQ/L (98-107); CREATININE 1.03 MG/DL (0.60-1.30); GAMMA GT 52 U/L (15-85); GLOMERULAR FILTRATION RATE 69 ML/MIN (>89); GLUCOSE,RANDOM 112 MG/DL (74-106); SODIUM (NA) 140 MEQ/L (136-145)
[2018-02-13 13:50] LABS: ALKALINE PHOSPHATASE 134 U/L (45-117); TOTAL BILIRUBIN ADULT 0.7 MG/DL (0.2-1.0); TOTAL PROTEIN 6.2 GM/DL (6.4-8.2)
--- NOTE | 2018-02-13 14:19 | PD.CONS ---
HPI Service Critical Care Medicine Consult Requested By Dr. Green Reason for Consult Altered mental status Primary Care Physician Unknown History of Present Illness HPI History of Present Illness 82-year-old male with a past medical history significant for HTN, HLD, TIA, CHF , A. fib, CKD, hypothyroidism, sleep apnea, restless leg syndrome, and gout who was originally admitted to [facility] for workup of acute stroke. reportedly saw him on 01/29 around 1230 and later returned around 130 to find patient with difficulty speaking and right hemiaplasia. CT of the brain demonstrated hyperdense left M1 and M2 segments, not a candidate for TPA due to INR of 1.8. CTA showed demonstrated thromboembolism of M1 and M2 segments. CT perfusion demonstrated large acute left MCA infarct without surrounding ischemic penumbra. [facility] neurology contacted [facility] neurologist per family request of aggressive treatment. Case was discussed with Dr. Baum and patient was transferred to [facility] and underwent thrombectomy by Dr. Shelby as family was accepting of increased risk of hemorrhage. Procedure was complicated due to right groin bleeding and patient underwent emergent repair of right femoral artery by . Subsequently patient underwent CT of the head which showed an evolving left- sided stroke, MRI showed small bleed slightly larger as noted per neurologist. During his stay he also suffered agitation and delirium which gradually improved. On 02/08 T-max of 102 was recorded and patient had chest x-ray performed which was clear, lobato cultures done with no source of infection found. Patient was transferred to [facility] inpatient rehabilitation on 02/10 after being cleared by both neurology and neurosurgery for anticoagulation with Coumadin. Patient was doing relatively well until yesterday. According to patient's daughter since last night patient has had an altered mental status and was been lethargic and had some roving eye movements periodically. This morning patient underwent a head CT which showed slight increase in hemorrhagic conversion in the left parietal lobe in addition to pre-existing areas of ischemic stroke with previous hemorrhage in the left temporoparietal region. As patient was obtunded he was transferred to the ICU by Dr. Green. Critical care consult was requested by Dr. Green in view of worsening mental status. I evaluated the patient immediately on being notified by Dr. Green. At the time of my evaluation patient was extremely lethargic and stuporous, nonverbal having snoring respirations with occasional coughing and inability to clear secretions. EEG done following patient's arrival to ICU did not reveal seizure activity. I proceeded with intubation for airway protection and patient was placed on mechanical ventilation. He did have a temperature of 100.2 axillary hence pancultures were ordered and empiric antibiotic initiated. MRI brain was ordered to evaluate for any new ischemic event. History was obtained by reviewing records and discussion with patient's daughter as well as with Dr. Green. INR was 1.2 this morning. Patient did undergo CT abdomen pelvis a few days ago for elevated LFTs which was unremarkable except for some gallbladder sludge. Review of Systems Except as stated in HPI: all other systems reviewed are Neg Past Family Social History Allergies: Coded Allergies: allopurinol (Verified Allergy, Severe, Irritation, 01/31/18) SKIN IRRITATION AND SLOUGHING. Past Medical History Hypertension Hyperlipidemia Chronic CHF with reportedly preserved EF Hypothyroidism Chronic atrial fibrillation Chronic kidney disease (Stage IV per daughter) Sensoroneural hearing loss TIA in 2009 Small traumatic R Pneumothorax 2011, treated without chest tube Sleep apnea uses CPAP at home Restless leg syndrome (Dr. 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) Umbilical Hernia Gout Past Surgical History Tympanostomy tubes in 1970s Cataract lens implants Reported Medications Reported Meds & Active Scripts Active Reported Medrol Dosepak (Methylprednisolone) 4 Mg Dspk 4 Mg PO DIRECTED PRN Per Pharmacist direction Metolazone 5 Mg Tab 5 Mg PO DAILY PRN Ventolin Hfa 18 GM Inh (Albuterol Sulfate) 90 Mcg/Act Aer 2 Puff INH Q4-6H PRN Clonidine (Clonidine HCl) 0.1 Mg Tab 0.05 Mg PO DIRECTED PRN Valsartan 160 Mg Tab 160 Mg PO HS Dutasteride 0.5 Mg Cap 0.5 Mg PO HS Melatonin 5 Mg Tab 5 Mg PO HS Doxazosin (Doxazosin Mesylate) 2 Mg Tab 2 Mg PO DAILY Atorvastatin (Atorvastatin Calcium) 40 Mg Tab 40 Mg PO HS Warfarin 5 Mg Tab 5 Mg PO DAILY@1600 Citalopram (Citalopram Hydrobromide) 20 Mg Tab 20 Mg PO DAILY Vitamin D3 (Cholecalciferol) 5,000 Unit Cap 5,000 Units PO AC LUNCH Chlorthalidone 50 Mg Tab 50 Mg PO DAILY B Complex (B-Complex Vitamins) 1 Cap 1 Cap PO DAILY Uloric (Febuxostat) 40 Mg Tab DAILY Colchicine 0.6 Mg Cap 0.6 Mg PO DAILY Spiriva Handihaler (Tiotropium Inh) 18 Mcg Cap 18 Mcg INH DAILY 1 capsule = 18 mcg Levothyroxine (Levothyroxine Sodium) 75 Mcg Tab 75 Mcg PO DAILY Current Medications Sodium Chloride (NS Flush) 2 ml UNSCH PRN IV FLUSH FLUSH AFTER USING IV ACCESS ; Start 02/13/18 at 11:00 Sodium Chloride (NS Flush) 2 ml BID IV FLUSH ; Start 02/13/18 at 21:00 Acetaminophen (Tylenol) 650 mg Q4H PRN PO TEMP > 100.4; Start 02/13/18 at 11:00 Ondansetron HCl (Zofran Inj) 4 mg Q6H PRN IVP NAUSEA OR VOMITING; Start at 11:00 Prochlorperazine (Compazine Supp) 25 mg Q12H PRN RECTAL NAUSEA OR VOMITING; Start 02/13/18 at 11:00 Naloxone HCl (Narcan Inj) 0.4 mg UNSCH PRN IV PUSH SEE LABEL COMMENTS; Start at 11:00 Senna/Docusate Sodium (Gifty-Colace) 1 tab BID PO ; Start 02/13/18 at 21:00 Magnesium Hydroxide (Milk Of Magnesia Liq) 30 ml Q12H PRN PO Mild constipation ; Start 02/13/18 at 11:00 Sennosides (Senokot) 17.2 mg Q12H PRN PO Moderate constipation; Start 02/13/18 at 11:00 Bisacodyl (Dulcolax Supp) 10 mg DAILY PRN RECTAL SEVERE CONSITIPATION; Start at 11:00 Lactulose (Lactulose Liq) 30 ml DAILY PRN PO SEVERE CONSITIPATION; Start at 11:00 Labetalol HCl (Trandate Inj) 20 mg Q4H PRN IV PUSH SYS BP GREATER THAN 160 MMHG ; Start 02/13/18 at 11:15 Enalaprilat (Vasotec Inj) 1.25 mg Q6H PRN IV PUSH to keep SBP between 140-160; Start 02/13/18 at 11:15 Clonidine (Catapres) 0.1 mg Q6H PRN PO to keep SBP between 140-160; Start 02/13 at 11:15 Pantoprazole Sodium (Protonix Inj) 40 mg DAILY IV PUSH ; Start 02/14/18 at 09:00 Levetriacetam 100 ml @ 400 mls/hr ONCE ONCE IV ; Start 02/13/18 at 13:00; Stop 02/13/18 at 13:14; Status DC Levetriacetam (Keppra) 500 mg Q12H PO ; Start 02/13/18 at 21:00 Ondansetron HCl (Zofran Inj) 4 mg Q6H PRN IV PUSH NAUSEA; Start 02/13/18 at 11: 15; Status UNV Etomidate (Amidate Inj) 40 mg STK-MED ONCE .ROUTE ; Start 02/13/18 at 11:54; Stop 02/13/18 at 11:55; Status DC Fentanyl Citrate (fentaNYL INJ) 100 mcg STK-MED ONCE .ROUTE ; Start 02/13/18 at 11:54; Stop 02/13/18 at 11:55; Status DC Rocuronium [place] (Zemuron Inj) 50 mg STK-MED ONCE .ROUTE ; Start 02/13/18 at 11:54; Stop 02/13/18 at 11:55; Status DC Propofol 50 ml @ As Directed STK-MED ONCE .ROUTE ; Start 02/13/18 at 12:21; Stop 02/13/18 at 12:22; Status DC Chlorhexidine Gluconate (Peridex 0.12% Liq) 15 ml BID@08,20 MT ; Start 02/13/18 at 20:00 Propofol 100 ml @ 0 mls/hr TITRATE PRN IV SEDATION; Start 02/13/18 at 12:45; Status UNV Piperacillin Sod/ Tazobactam Sod 100 ml @ 200 mls/hr Q6H IV ; Start 02/13/18 at 13:00 Family History Father: Stroke Mother: HTN Social History Tobacco: Smokes cigarettes in 20s and 30s Alcohol: Occasional glass of wine none in the past year No reported illicit drug use Physical Exam Vital Signs Vital Signs Date Time Temp Pulse Resp B/P (MAP) Pulse Ox O2 Delivery O2 Flow Rate FiO2 02/13/18 12:30 100 50 02/13/18 12:30 Ventilator 50 Physical Exam HEENT/Neuro: Pallor present, no icterus, tongue moist, JASPER, encephalopathic/2 pros, localizes to painful stimuli, right hemiparesis. Neck: No JVD Chest/pulmonary: Good air entry bilaterally, scattered rhonchi, no wheezing or crackles Cardiovascular: S1-S2 regular no gallop or murmur GI/abdomen: Soft, nontender, bowel sounds present Extremities: Warm bilaterally, no edema. Asad noted in the right groin surgical site which are clean dry and intact. Laboratory Laboratory Tests Test 02/13/18 12:55 02/13/18 13:05 02/13/18 13:30 White Blood Count 5.0 Red Blood Count 3.00 Hemoglobin 8.6 Hematocrit 25.6 Mean Corpuscular Volume 85.1 Mean Corpuscular Hemoglobin 28.5 Mean Corpuscular Hemoglobin Concent 33.5 Red Cell Distribution Width 15.7 Platelet Count 344 Mean Platelet Volume 7.3 Neutrophils (%) (Auto) 83.1 Lymphocytes (%) (Auto) 8.5 Monocytes (%) (Auto) 8.0 Eosinophils (%) (Auto) 0.1 Basophils (%) (Auto) 0.3 Neutrophils # (Auto) 4.1 Lymphocytes # (Auto) 0.4 Monocytes # (Auto) 0.4 Eosinophils # (Auto) 0.0 Basophils # (Auto) 0.0 CBC Comment DIFF FINAL Differential Comment Blood Urea Nitrogen 23 Creatinine 1.03 Random Glucose 112 Total Protein 6.2 Albumin 2.3 Calcium Level 8.2 Alkaline Phosphatase 134 Aspartate Amino Transf (AST/SGOT) 91 Alanine Aminotransferase (ALT/SGPT) 102 Gamma Glutamyl Transpeptidase 52 Total Bilirubin 0.7 Sodium Level 140 Potassium Level 3.7 Chloride Level 103 Carbon Dioxide Level 31.3 Anion Gap 6 Estimat Glomerular Filtration Rate 69 Lactic Acid Level 0.9 Date/Time Source Procedure Growth Status 02/13/18 13:05 Blood Peripheral Aerobic Blood Culture Pending Received 02/13/18 13:05 Blood Peripheral Anaerobic Blood Culture Pending Received Result Diagram: 02/13/18 1255 02/13/[address] head done on 02/13 at [facility]: Left MCA territory ischemic infarct with areas of hemorrhage involving left temporoparietal region some of which are new. Last Impressions Chest X-Ray 02/13/18 0000 Signed Impressions: Service Date/Time: Tuesday, February 13, 2018 12:50 - CONCLUSION: 1. Adequate placement of endotracheal tube. 2. Left basal atelectasis. 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 EEG did not reveal any seizure activity. Suspect new ischemic stroke versus sepsis as a cause for worsening neurologic status. Patient intubated for airway protection. Will obtain MRI brain for further evaluation. Patient given IV Keppra earlier and on 500 mg twice daily Keppra. Neurology Dr. Barnhart and neurosurgery Dr. Awad informed and consulted. Cardiovascular: IV hydration, labetalol as needed to keep SBP below 1 50 mmHg. Hold Coumadin. Continue other antihypertensives via OG tube. Pulmonary: Intubated for airway protection and placed on mechanical ventilation. Bronchodilators, vent bundle. Daily CPAP trials starting tomorrow provided neurologic status improves. GI/liver: Insert OG tube. Plan on initiating tube feeds and advance to goal as tolerated. Elevated LFTs noted. Add GGT. Sludge in gallbladder on CAT scan done few days previously noted. Trend LFTs. Renal/: IV hydration, strict intake output, monitor and replete electrolytes, follow BUN/creatinine. ID: Fever possibly infectious versus central in origin. Normal white count. Concern for aspiration. Lobato cultures ordered. Empiric Zosyn started 02/13. Check procalcitonin. Endocrine: Watch for hypoglycemia, SSI for glycemic control as needed. Heme: Follow CBC and coags. Coumadin to be held in view of new area of hemorrhage on CT. initiate DVT prophylaxis with Lovenox when okay with neurosurgery and neurology. Prophylaxis: PPI/SCDs. Discussed with patient's daughter regarding current clinical status and plan of care at bedside and she voiced understanding and was agreeable. Further recommendations per neurology and neurosurgery. Condition critical Time spent on critical care excluding procedures 70 minutes Keaton Zelaya MD Feb 13, 2018 14:19
[2018-02-13 14:32] LABS: AMORPHOUS SEDIMENT, URINE RARE; BACTERIA, URINE OCC /hpf; BILIRUBIN, URINE NEG (NEG); BLOOD, URINE NEG (NEG); GLUCOSE,URINE NEG (NEG); HYALINE CAST, URINE 2 /lpf (RARE); KETONE, URINE NEG (NEG); MUCUS URINE FEW /lpf (OCC); NITRITE,URINE POS (NEG); PH, URINE 5.5 (5.0-8.5); SQUAMOUS EPITHELIAL CELL URINE 1 /hpf (0-5); URINE COLOR YELLOW (YELLW/STRAW); URINE LEUKOCYTE ESTERASE TRACE (NEG)
[2018-02-13] MEDS: PIPERACIL-TAZO 4.5 GM PREMIX 100 ML IV SCH ×2 (16:00→22:43)
--- NOTE | 2018-02-13 17:23 | HHI.PR ---
Subjective Remarks around midnight last pm could not be aroused and roving eye movements acc to son Objective Vital Signs Date Time Temp Pulse Resp B/P (MAP) Pulse Ox O2 Delivery O2 Flow Rate FiO2 02/13/18 12:30 100 50 02/13/18 12:30 Ventilator 50 Result Diagram: 02/13/18 1255 02/13/18 1255 Objective Remarks on vent and dip bilat toes upr some tripleflex lle moving r arm some lue ? inc tone pupil= Assessment and Plan Assessment and Plan imp bp abg labs ok inr 1.2 concern is for a shower of emboli r mca or post crc the ct i was not impressed as that bad some mild sah or surface blood sz a possibility also will see what mri shows mra too if no new infarcts try decadron 10 Steven Baum MD Feb 13, 2018 17:23
--- NOTE | 2018-02-13 17:38 | PD.PROCEDR ---
Procedure Note Procedure Procedure: Endotracheal intubation Preop diagnosis: Encephalopathy, acute respiratory failure Postop diagnosis: Same Indication: Airway protection Sedation used: Etomidate 20 mg, fentanyl 100 mcg, rocuronium 50 mg IV Procedure: Patient was preoxygenated with 100% oxygen via [] Ambu bag with bag mask ventilation, following induction of sedation and neuromuscular blockade, direct laryngoscopy was performed using a Ryan 3 blade with good visualization of vocal cords. An 8 Maori ET tube was passed through the vocal cords under direct visualization up to the 22 centimeter licha and after inflating cuff of ET tube, correct placement was confirmed using bagging with good color change on CO2 detector, 5 point auscultation and chest rise with ventilation. Patient was connected to mechanical ventilation. Patient tolerated the procedure well with no immediate complications noted. Postprocedure chest x-ray was ordered. Keaton Zelaya MD Feb 13, 2018 17:37
--- NOTE | 2018-02-13 19:00 | RADRPT ---
EXAM DATE/TIME: 02/13/2018 18:04 [facility] COMPARISON: CT BRAIN W/O CONTRAST, February 13, 2018, 0:46. CT BRAIN W/O CONTRAST, February 05, 2018, 9:52. MRI BRAIN W/O CONTRAST, February 07, 2018, 9:03. INDICATIONS : Decreased level of consciousness. MEDICAL HISTORY : Renal insufficiency, chronic. Chronic obstructive pulmonary disease. Congestive heart failure. Hypert ension. SURGICAL HISTORY : Thrombectomy. ENCOUNTER: Initial ACUITY: 1 day PAIN SCORE: 0/10 LOCATION: cranial TECHNIQUE: Multiplanar, multisequence MRI of the brain was performed without contrast. FINDINGS: CEREBRUM: There is a new large area of diffusion abnormality in the right frontal, temporal, and parietal lobes in the right middle cerebral artery territory consistent with acute infarction. There is subacute in farction seen at the left opercular region and posterior temporal lobe. There is some persistent evol ving hemorrhage in the left posterior temporal lobe. The ventricles are enlarged. No extraaxial fluid collections are seen. The pituitary gland and suprasellar cistern are normal in configuration. WHITE MATTER: There is increased signal within the periventricular and pontine white matter. POSTERIOR FOSSA: The cerebellum and brainstem are intact. The 4th ventricle is midline. The cerebellopontine angle is unremarkable. The cerebellar tonsils are normal in position. EXTRACRANIAL: The visualized portions of the orbits and paranasal sinuses are unremarkable. CONCLUSION: 1. New acute infarction involving the right middle cerebral artery territory. 2. Evolving infarct involving the left opercular and left temporal lobe. There is some evolving hemor rhage again seen in the posterior left temporal lobe. 3. Suspect small vessel ischemic change in the cerebral pontine white matter. Juan Francisco Beltrán MD on February 13, 2018 at 18:53 Board Certified Radiologist. This report was verified electronically.
--- NOTE | 2018-02-13 19:14 | RADRPT ---
EXAM DATE/TIME: 02/13/2018 18:04 [facility] COMPARISON: CT BRAIN W/O CONTRAST, February 13, 2018, 0:46. INDICATIONS : Decreased level of consciousness. MEDICAL HISTORY : Chronic obstructive pulmonary disease. Congestive heart failure. Renal insufficiency, chronic. SURGICAL HISTORY : Thrombectomy. ENCOUNTER: Initial ACUITY: 1 day PAIN SCORE: 0/10 LOCATION: cranial Please note a normal MRA of the brain does not entirely exclude the possibility of a small aneurysm, nor the possibility of distal intracranial vessel disease. TECHNIQUE: 3D time of flight MRA was performed. Source images, multiplanar STS MIP, and 3D volume MIP reconstru ctions were reviewed. FINDINGS: There is abrupt occlusion at the origin of the right middle cerebral artery. The remaining vessels ap pear grossly intact. CONCLUSION: Occlusion at the origin of the right middle cerebral artery. Juan Francisco Beltrán MD on February 13, 2018 at 19:10 Board Certified Radiologist. This report was verified electronically.
--- NOTE | 2018-02-13 19:56 | PD.CONS ---
History of Present Illness Service Neurosurgery Consult Requested By Dr. Green Reason for Consult Hemorrhagic CVA Primary Care Physician Unknown Diagnoses: History of Present Illness Mr. Ramirez is a 82-year-old male recently Transferred to [facility] from [facility] where he presented with an acute CVA. Patient was not candidate for TPA due to INR of 1.8 and underwent thrombectomy at [facility]. Subsequent CT scan and MRI imaging revealed slight hemorrhage within the area of infarction, with mild progression on follow-up imaging. Neurosurgery consultation was placed last week and follow-up imaging revealed stabilization of the very mild hemorrhagic component. The patient was felt to be relatively high risk for recurrent embolic stroke, and after discussion with the family, anticoagulation with Coumadin was resumed 3 days ago. He was transferred to [facility] rehabilitation. Last evening the patient was noted to have altered mental status and lethargy with wandering gaze. Follow- up CT scan head early in the morning on 02/13/2018 has revealed areas of slight increased hemorrhagic conversion in the left parietal lobe with previous areas of mild hemorrhage in the left temporal region. Due to altered mental status and declining respiratory function, the patient was transferred early this morning to intensive surgical care unit, intubated. Review of Systems Unable to obtain review of systems from patient, intubated, altered mental status. Past Family Social History Allergies: Coded Allergies: allopurinol (Verified Allergy, Severe, Irritation, 01/31/18) SKIN IRRITATION AND SLOUGHING. Past Medical History Atrial fibrillation Hypertension Hyperlipidemia CHF CVA TIA COPD Stage IV chronic kidney disease Hypothyroidism Past Surgical History Cataracts Ear surgery Reported Medications Reported Meds & Active Scripts Active Family History Positive CVA Social History Smoked cigarettes many years ago. Occasional alcohol Physical Exam Vital Signs Vital Signs Date Time Temp Pulse Resp B/P (MAP) Pulse Ox O2 Delivery O2 Flow Rate FiO2 02/13/18 17:50 100 100 02/13/18 17:17 100 50 02/13/18 12:30 100 50 02/13/18 12:30 Ventilator 50 Physical Exam GENERAL: Intubated and sedated SKIN: No rashes, ecchymoses or lesions. Cool and dry. HEAD: Atraumatic. Normocephalic. No temporal or scalp tenderness. EYES: Sclera clear and nonicteric ENT: Endotracheal tube. NECK: No nuchal rigidity. CARDIOVASCULAR: Irregular rate and rhythm without murmurs, gallops, or rubs. RESPIRATORY: Mild rhonchi GASTROINTESTINAL: Abdomen soft, nondistended. No hepato-splenomegaly, or palpable masses. No guarding. MUSCULOSKELETAL: No significant edema NEUROLOGICAL: Intubated Mild eye opening to sternal rub Flexion left upper extremity with stimulation Right hemiparesis Laboratory Laboratory Tests Test 02/13/18 12:55 02/13/18 13:05 02/13/18 13:30 White Blood Count 5.0 Red Blood Count 3.00 Hemoglobin 8.6 Hematocrit 25.6 Mean Corpuscular Volume 85.1 Mean Corpuscular Hemoglobin 28.5 Mean Corpuscular Hemoglobin Concent 33.5 Red Cell Distribution Width 15.7 Platelet Count 344 Mean Platelet Volume 7.3 Neutrophils (%) (Auto) 83.1 Lymphocytes (%) (Auto) 8.5 Monocytes (%) (Auto) 8.0 Eosinophils (%) (Auto) 0.1 Basophils (%) (Auto) 0.3 Neutrophils # (Auto) 4.1 Lymphocytes # (Auto) 0.4 Monocytes # (Auto) 0.4 Eosinophils # (Auto) 0.0 Basophils # (Auto) 0.0 CBC Comment DIFF FINAL Differential Comment Blood Urea Nitrogen 23 Creatinine 1.03 Random Glucose 112 Total Protein 6.2 Albumin 2.3 Calcium Level 8.2 Alkaline Phosphatase 134 Aspartate Amino Transf (AST/SGOT) 91 Alanine Aminotransferase (ALT/SGPT) 102 Gamma Glutamyl Transpeptidase 52 Total Bilirubin 0.7 Sodium Level 140 Potassium Level 3.7 Chloride Level 103 Carbon Dioxide Level 31.3 Anion Gap 6 Estimat Glomerular Filtration Rate 69 Procalcitonin 0.09 Lactic Acid Level 0.9 Urine Color YELLOW Urine Turbidity HAZY Urine pH 5.5 Urine Specific [place] 1.033 Urine Protein 30 Urine Glucose (UA) NEG Urine Ketones NEG Urine Occult Blood NEG Urine Nitrite POS Urine Bilirubin NEG Urine Urobilinogen LESS THAN 2.0 Urine Leukocyte Esterase TRACE Urine RBC 4 Urine WBC 17 Urine Squamous Epithelial Cells 1 Urine Amorphous Sediment RARE Urine Bacteria OCC Urine Hyaline Casts 2 Urine Mucus FEW Microscopic Urinalysis Comment CATH-CULTURE IND Blood Gas Puncture Site RT RADIAL Blood Gas Patient Temperature 98.6 Blood Gas HCO3 30 Blood Gas Base Excess 5.5 Blood Gas Oxygen Saturation 98 Arterial Blood pH 7.44 Arterial Blood Partial Pressure CO2 44 Arterial Blood Partial Pressure O2 205 Arterial Blood Oxygen Content 15.2 Arterial Blood Carboxyhemoglobin 1.0 Arterial Blood Methemoglobin 0.8 Blood Gas Hemoglobin 10.7 Oxygen Delivery Device VENTILATOR Blood Gas Ventilator Setting Blood Gas Inspired Oxygen 50 Date/Time Source Procedure Growth Status 02/13/18 13:05 Blood Peripheral Aerobic Blood Culture Pending Received 02/13/18 13:05 Blood Peripheral Anaerobic Blood Culture Pending Received 02/13/18 12:55 Sputum Endotracheal Gram Stain Pending Received 02/13/18 12:55 Sputum Endotracheal Sputum Culture Pending Received 02/13/18 13:30 Urine Catheterized Urine Urine Culture Pending Received Result Diagram: 02/13/18 1255 02/13/18 1255 Imaging 02/13/2018 CT scan head and MRI brain images reviewed by the undersigned. The studies reveal a new acute right MCA distribution CVA compared to the prior study. Small amount of hemorrhage at the right temporoparietal region and slight parenchymal hemorrhage with an area of previous infarction at the left parietal convexity. Chest X-Ray 02/13/18 0000 Signed Impressions: Service Date/Time: Tuesday, February 13, 2018 12:50 - CONCLUSION: 1. Adequate placement of endotracheal tube. 2. Left basal atelectasis. Garret De Leon MD Assessment and Plan Assessment and Plan Impression: 1. Left MCA CVA. Recent altered mental status. Follow-up CT scan head 2017 reveals slight areas of hemorrhagic conversion in the left temporal, temporoparietal, and parietal convexity regions without significant mass-effect. 2. New acute right MCA distribution CVA. 3. Fever, possible sepsis Recommendations: Continue ventilatory support. No neurosurgical intervention indicated at this time. Follow-up CT scan head depending on clinical course. On seizure prophylaxis, although no definite seizure activity recently noted, and EEG negative for seizure . Miki Stovall MD Feb 13, 2018 19:56
[2018-02-13] MEDS: CHLORHEXIDINE 0.12% (ORAL KIT) 15 ML CUP MT SCH (20:00)
--- NOTE | 2018-02-13 20:17 | MG ---
cc: Idris Blankenship MD, Olimpio F MD REQUESTING PHYSICIAN: Dr. Green An EEG was obtained on this 82 year-old patient with history of apparent recurrent stroke and decreased responsiveness. This EEG is showing generalized attenuation, theta and delta rhythms, lack of alpha activity. Overall, the rhythms appeared to be slower on the left than the right. There is a lot of artifact. There is no ictal pattern. Hyperventilation was not performed. Photic stimulation disclosed no significant change. INTERPRETATION: Abnormal electroencephalogram because of bihemispheric slowing, probably left worse than the right. There are some sharp waves, but no distinct epileptiform discharges and specifically no ictal pattern. The findings suggest bilateral structural abnormalities. Idris Monahan. MD Krzysztof [facility] , 07:58 PM , 08:16 PM
[2018-02-13] MEDS ORDERED: SODIUM CHLORIDE 0.9% FLUSH 10 ML FLUSH IV FLUSH SCH (21:00)
[2018-02-13] MEDS ORDERED: SODIUM CHLOR 0.9% 1000 ML INJ 1,000 ML IV SCH (21:00)
[2018-02-13] MEDS ORDERED: DOCUSATE SODIUM 50 MG/SENNA 8.6 MG TAB PO SCH (21:00)
[2018-02-13] MEDS: levETIRAcetam 500 MG TAB PO SCH (22:17)
[2018-02-13] MEDS: PROPOFOL 1000 MG/100 ML IV PRN (22:44)
[2018-02-14] VITALS (10 sets, daily range): BP systolic 113–148; BP diastolic 62–65; PULSE 68–76; RESP 16–20; TEMP 98.4–99; O2SAT 95–100
[2018-02-14] MEDS: PIPERACIL-TAZO 4.5 GM PREMIX 100 ML IV SCH ×3 (02:02→13:00)
[2018-02-14] MEDS: PROPOFOL 1000 MG/100 ML IV PRN ×3 (04:10→15:55)
--- NOTE | 2018-02-14 07:55 | HHI.CCPN ---
Subjective Remarks/Hospital Course Hospital Course: 82-year-old male with a past medical history significant for HTN, HLD, TIA, CHF , A. fib, CKD, hypothyroidism, sleep apnea, restless leg syndrome, and gout who was originally admitted to [facility] for workup of acute stroke. reportedly saw him on 01/29 around 1230 and later returned around 130 to find patient with difficulty speaking and right hemiaplasia. CT of the brain demonstrated hyperdense left M1 and M2 segments, not a candidate for TPA due to INR of 1.8. CTA showed demonstrated thromboembolism of M1 and M2 segments. CT perfusion demonstrated large acute left MCA infarct without surrounding ischemic penumbra. [facility] neurology contacted [place] neurologist per family request of aggressive treatment. Case was discussed with Dr. Baum and patient was transferred to [place] and underwent thrombectomy by Dr. Shelby as family was accepting of increased risk of hemorrhage. Procedure was complicated due to right groin bleeding and patient underwent emergent repair of right femoral artery by . Subsequently patient underwent CT of the head which showed an evolving left- sided stroke, MRI showed small bleed slightly larger as noted per neurologist. During his stay he also suffered agitation and delirium which gradually improved. On 02/08 T-max of 102 was recorded and patient had chest x-ray performed which was clear, lobato cultures done with no source of infection found. Patient was transferred to [place] inpatient rehabilitation on 02/10 after being cleared by both neurology and neurosurgery for anticoagulation with Coumadin. Patient was doing relatively well until yesterday. According to patient's daughter since last night patient has had an altered mental status and was been lethargic and had some roving eye movements periodically. This morning patient underwent a head CT which showed slight increase in hemorrhagic conversion in the left parietal lobe in addition to pre-existing areas of ischemic stroke with previous hemorrhage in the left temporoparietal region. As patient was obtunded he was transferred to the ICU by Dr. Green. Critical care consult was requested by Dr. Green in view of worsening mental status. I evaluated the patient immediately on being notified by Dr. Green. At the time of my evaluation patient was extremely lethargic and stuporous, nonverbal having snoring respirations with occasional coughing and inability to clear secretions. EEG done following patient's arrival to ICU did not reveal seizure activity. I proceeded with intubation for airway protection and patient was placed on mechanical ventilation. He did have a temperature of 100.2 axillary hence pancultures were ordered and empiric antibiotic initiated. MRI brain was ordered to evaluate for any new ischemic event. History was obtained by reviewing records and discussion with patient's daughter as well as with Dr. Green. INR was 1.2 this morning. Patient did undergo CT abdomen pelvis a few days ago for elevated LFTs which was unremarkable except for some gallbladder sludge. Subjective: 02/14: MRI/MRA with massive right MCA infarct. now extensor posturing on the left. long discussion with the family regarding prognosis: bihemispheric large vascular distribution strokes in 82yM has very poor prognosis, combined with the ongoing problem of intracerebral hemorrhaging when INR > 2 and large distribution ischemic strokes with INR < 2, makes going forward a high likelihood of no meaningful recovery and only further comorbidities. family is asking about hospice and electing palliation Objective Vital Signs Date Time Temp Pulse Resp B/P (MAP) Pulse Ox O2 Delivery O2 Flow Rate FiO2 02/14/18 06:00 70 02/14/18 04:00 98.6 16 136/62 (86) 100 02/14/18 04:00 40 02/13/18 19:00 Mechanical Ventilator Intake and Output 02/14/18 02/14/18 02/15/18 08:00 16:00 00:00 Intake Total 200 ml Output Total 450 ml Balance -250 ml Result Diagram: 02/13/18 1255 02/13/18 1255 Other Results Laboratory Tests Test 02/13/18 13:30 Blood Gas Puncture Site RT RADIAL Blood Gas Patient Temperature 98.6 Blood Gas HCO3 30 mmol/L (22-26) Blood Gas Base Excess 5.5 mmol/L (-2-2) Blood Gas Oxygen Saturation 98 % (90-100) Arterial Blood pH 7.44 (7.380-7.420) Arterial Blood Partial Pressure CO2 44 mmHg (38-42) Arterial Blood Partial Pressure O2 205 mmHg (61-120) Arterial Blood Oxygen Content 15.2 Vol % (12.0-20.0) Arterial Blood Carboxyhemoglobin 1.0 % (0-4) Arterial Blood Methemoglobin 0.8 % (0-2) Blood Gas Hemoglobin 10.7 G/DL (12.0-16.0) Oxygen Delivery Device VENTILATOR Blood Gas Ventilator Setting Blood Gas Inspired Oxygen 50 % Imaging CT head done on 02/13 at [place]: Left MCA territory ischemic infarct with areas of hemorrhage involving left temporoparietal region some of which are new. Last Impressions Chest X-Ray 02/13/18 0000 Signed Impressions: Service Date/Time: Tuesday, February 13, 2018 12:50 - CONCLUSION: 1. Adequate placement of endotracheal tube. 2. Left basal atelectasis. Garret De Leon MD Objective Remarks HEENT/Neuro: Pallor present, no icterus, tongue moist, JASPER, extensor posturing in the left. withdraws to pain on RUE. RASS -3. does not follow commands. +cough + gag. + corneals. pupils 3mm equal and reactive. Neck: No JVD Chest/pulmonary: Good air entry bilaterally, scattered rhonchi, no wheezing or crackles Cardiovascular: S1-S2 regular no gallop or murmur GI/abdomen: Soft, nontender, bowel sounds present Extremities: Warm bilaterally, no edema. Asad noted in the right groin surgical site which are clean dry and intact. A/P Assessment and Plan 82-year-old male with: Ischemic stroke involving left MCA territory with hemorrhagic transformation Worsening encephalopathy Fever Acute hypoxic and hypercarbic respiratory failure requiring mechanical ventilation for airway protection Hypertensive Emergency Elevated LFTs new acute Large right MCA CVA COPD Hyperlipidemia Chronic CHF with reportedly preserved EF Hypothyroidism Chronic atrial fibrillation Chronic kidney disease Sensoroneural hearing loss Sleep apnea uses CPAP at home Restless leg syndrome Plan: Neuro: Follow neuro checks. Neurology Dr. Barnhart and neurosurgery Dr. Nolasco consulted. very poor prognosis. Cardiovascular: IV hydration, labetalol as needed to keep SBP below 150 mmHg. Hold Coumadin. Continue other antihypertensives via OG tube. Pulmonary: remains intubated, sedated. Bronchodilators, vent bundle. GI/liver: OG tube. Elevated LFTs noted. Add GGT. Sludge in gallbladder on CAT scan done few days previously noted. Trend LFTs. Renal/: IV hydration, strict intake output, monitor and replete electrolytes, follow BUN/creatinine. ID: Fever possibly infectious versus central in origin. Normal white count. Concern for aspiration. Lobato cultures ordered. Empiric Zosyn started 02/13. Endocrine: Watch for hypoglycemia, SSI for glycemic control as needed. Heme: Follow CBC and coags. Coumadin to be held in view of new area of hemorrhage on CT. initiate DVT prophylaxis with Lovenox when okay with neurosurgery and neurology. Prophylaxis: PPI/SCDs. Discussed at length with children and . plan to consult hospice and transition to comfort measures. Condition critical Time spent on critical care excluding procedures 49 minutes Rahat Diggs MD Feb 14, 2018 07:55
[2018-02-14] MEDS: CHLORHEXIDINE 0.12% (ORAL KIT) 15 ML CUP MT SCH (08:00)
[2018-02-14 08:04] LABS: INTERNATIONAL NORMALIZED RATIO 1.4 RATIO; PROTHROMBIN TIME - PATIENT 13.9 SEC (9.8-11.6)
[2018-02-14 08:08] LABS: AUTOMATED NEUTROPHIL # 3.8 TH/MM3 (1.8-7.7); BASOPHIL % 0.5 % (0.0-2.0); EOSINOPHIL # 0.1 TH/MM3 (0-0.4); EOSINOPHIL % 1.5 % (0.0-4.0); HEMATOCRIT 25.3 % (39.0-51.0); HEMOGLOBIN 8.5 GM/DL (13.0-17.0); LYMPH % 9.4 % (9.0-44.0); LYMPHOCYTE # 0.5 TH/MM3 (1.0-4.8); MEAN CELL VOLUME 85.6 FL (80.0-100.0); MEAN CORPUSCULAR HEMOGLOBIN 28.9 PG (27.0-34.0); MEAN CORPUSCULAR HGB CONC 33.8 % (32.0-36.0); MEAN PLATELET VOLUME 7.2 FL (7.0-11.0); MONO % 9.2 % (0.0-8.0); MONOCYTE # 0.4 TH/MM3 (0-0.9); NEUT % 79.4 % (16.0-70.0); PLATELET COUNT 326 TH/MM3 (150-450); RED BLOOD COUNT 2.96 MIL/MM3 (4.50-5.90); RED CELL DISTRIBUTION WIDTH 15.5 % (11.6-17.2); WHITE BLOOD COUNT 4.8 TH/MM3 (4.0-11.0)
[2018-02-14 08:14] LABS: ALBUMIN 2.1 GM/DL (3.4-5.0); AST (GOT) 63 U/L (15-37); BICARBONATE 29.7 MEQ/L (21.0-32.0); BLOOD UREA NITROGEN 19 MG/DL (7-18); CALCIUM 8.2 MG/DL (8.5-10.1); CHLORIDE 106 MEQ/L (98-107); CREATININE 1.15 MG/DL (0.60-1.30); GLOMERULAR FILTRATION RATE 61 ML/MIN (>89); GLUCOSE,RANDOM 92 MG/DL (74-106); SODIUM (NA) 144 MEQ/L (136-145)
[2018-02-14 08:17] LABS: ALKALINE PHOSPHATASE 121 U/L (45-117); ALT (GPT) 77 U/L (12-78); TOTAL BILIRUBIN ADULT 0.7 MG/DL (0.2-1.0); TOTAL PROTEIN 5.7 GM/DL (6.4-8.2)
[2018-02-14] MEDS ORDERED: PANTOPRAZOLE SODIUM 40 MG VIAL IV PUSH SCH (09:00)
[2018-02-14] MEDS: levETIRAcetam 500 MG TAB PO SCH (09:00)
--- NOTE | 2018-02-14 09:25 | HHI.GIFU ---
Subjective Remarks Pt remains on sedation and mechanically ventilated Daughter at bedside, states discussed her fathers condition with Dr. Diggs this morning and they are wishing for Hospice care at this time Objective Vitals I&O Vital Signs Date Time Temp Pulse Resp B/P (MAP) Pulse Ox O2 Delivery O2 Flow Rate FiO2 02/14/18 08:59 95 40 02/14/18 08:00 99.0 68 16 139/65 (89) 99 02/14/18 08:00 40 02/14/18 08:00 68 02/14/18 06:00 70 02/14/18 04:00 98.6 76 16 136/62 (86) 100 02/14/18 04:00 40 02/14/18 04:00 70 02/14/18 03:16 100 40 02/14/18 02:00 70 02/14/18 00:11 100 40 02/14/18 00:00 74 02/14/18 00:00 98.4 74 20 113/64 (80) 100 02/13/18 22:08 99 50 02/13/18 22:00 74 02/13/18 20:00 76 02/13/18 20:00 98.4 76 20 153/67 (95) 100 02/13/18 19:00 100 Mechanical Ventilator 50 02/13/18 18:00 76 02/13/18 17:50 100 100 02/13/18 17:17 100 50 02/13/18 16:00 99.0 66 20 143/65 (91) 100 02/13/18 16:00 66 02/13/18 14:00 68 02/13/18 12:30 100 50 02/13/18 12:30 Ventilator 50 02/13/18 12:00 70 02/13/18 12:00 100.1 70 22 159/68 (98) 99 I/O 02/13/18 02/13/18 02/13/18 02/14/18 02/14/18 02/14/18 07:00 15:00 23:00 07:00 15:00 23:00 Intake Total 250 ml 200 ml Output Total 450 ml 450 ml Balance -200 ml -250 ml Intake IV Total 250 ml 200 ml Output Urine Total 450 ml 450 ml Stool Total 0 ml 0 ml Laboratory Laboratory Tests Test 02/13/18 12:55 4/20/18 13:05 02/13/18 13:30 02/14/18 06:45 White Blood Count 5.0 4.8 Red Blood Count 3.00 2.96 Hemoglobin 8.6 8.5 Hematocrit 25.6 25.3 Mean Corpuscular Volume 85.1 85.6 Mean Corpuscular Hemoglobin 28.5 28.9 Mean Corpuscular Hemoglobin Concent 33.5 33.8 Red Cell Distribution Width 15.7 15.5 Platelet Count 344 326 Mean Platelet Volume 7.3 7.2 Neutrophils (%) (Auto) 83.1 79.4 Lymphocytes (%) (Auto) 8.5 9.4 Monocytes (%) (Auto) 8.0 9.2 Eosinophils (%) (Auto) 0.1 1.5 Basophils (%) (Auto) 0.3 0.5 Neutrophils # (Auto) 4.1 3.8 Lymphocytes # (Auto) 0.4 0.5 Monocytes # (Auto) 0.4 0.4 Eosinophils # (Auto) 0.0 0.1 Basophils # (Auto) 0.0 0.0 CBC Comment DIFF FINAL DIFF FINAL Differential Comment Blood Urea Nitrogen 23 19 Creatinine 1.03 1.15 Random Glucose 112 92 Total Protein 6.2 5.7 Albumin 2.3 2.1 Calcium Level 8.2 8.2 Alkaline Phosphatase 134 121 Aspartate Amino Transf (AST/SGOT) 91 63 Alanine Aminotransferase (ALT/SGPT) 102 77 Gamma Glutamyl Transpeptidase 52 Total Bilirubin 0.7 0.7 Sodium Level 140 144 Potassium Level 3.7 3.8 Chloride Level 103 106 Carbon Dioxide Level 31.3 29.7 Anion Gap 6 8 Estimat Glomerular Filtration Rate 69 61 Procalcitonin 0.09 Lactic Acid Level 0.9 Urine Color YELLOW Urine Turbidity HAZY Urine pH 5.5 Urine Specific Partridge 1.033 Urine Protein 30 Urine Glucose (UA) NEG Urine Ketones NEG Urine Occult Blood NEG Urine Nitrite POS Urine Bilirubin NEG Urine Urobilinogen LESS THAN 2.0 Urine Leukocyte Esterase TRACE Urine RBC 4 Urine WBC 17 Urine Squamous Epithelial Cells 1 Urine Amorphous Sediment RARE Urine Bacteria OCC Urine Hyaline Casts 2 Urine Mucus FEW Microscopic Urinalysis Comment CATH-CULTURE IND Blood Gas Puncture Site RT RADIAL Blood Gas Patient Temperature 98.6 Blood Gas HCO3 30 Blood Gas Base Excess 5.5 Blood Gas Oxygen Saturation 98 Arterial Blood pH 7.44 Arterial Blood Partial Pressure CO2 44 Arterial Blood Partial Pressure O2 205 Arterial Blood Oxygen Content 15.2 Arterial Blood Carboxyhemoglobin 1.0 Arterial Blood Methemoglobin 0.8 Blood Gas Hemoglobin 10.7 Oxygen Delivery Device VENTILATOR Blood Gas Ventilator Setting Blood Gas Inspired Oxygen 50 Lipase 150 Test 02/14/18 06:54 Prothrombin Time 13.9 Prothromb Time International Ratio 1.4 Activated Partial Thromboplast Time 32.4 Fibrinogen 530 Date/Time Source Procedure Growth Status 02/13/18 13:05 Blood Peripheral Aerobic Blood Culture Pending Received 02/13/18 13:05 Blood Peripheral Anaerobic Blood Culture Pending Received 02/13/18 12:55 Sputum Endotracheal Gram Stain Pending Received 02/13/18 12:55 Sputum Endotracheal Sputum Culture Pending Received 02/13/18 13:30 Urine Catheterized Urine Urine Culture Pending Received Imaging Last Impressions Head Magnetic Resonance Angiography 02/13/18 0000 Signed Impressions: Service Date/Time: Tuesday, February 13, 2018 18:04 - CONCLUSION: Occlusion at the origin of the right middle cerebral artery. Juan Francisco Beltrán MD Chest X-Ray 02/13/18 0000 Signed Impressions: Service Date/Time: Tuesday, February 13, 2018 12:50 - CONCLUSION: 1. Adequate placement of endotracheal tube. 2. Left basal atelectasis. Garret De Leon MD Brain MRI 02/13/18 0000 Signed Impressions: Service Date/Time: Tuesday, February 13, 2018 18:04 - CONCLUSION: 1. New acute infarction involving the right middle cerebral artery territory. 2. Evolving infarct involving the left opercular and left temporal lobe. There is some evolving hemorrhage again seen in the posterior left temporal lobe. 3. Suspect small vessel ischemic change in the cerebral pontine white matter. Juan Francisco Beltrán MD Physical Exam HEENT: Normocephalic; atraumatic CHEST: Respirations synchronized with vent. ETT CARDIAC: RRR ABDOMEN: Distended, soft, bowel sounds active SKIN: Pale JUNIOR QA ANALYST: Unresponsive Assessment and Plan Plan Our service has been following pt for elevated LFTs- plans for HIDA scan, however, pt became unstable and was transferred to [facility]. Pt with very poor prognosis. Daughter at bedside discussed her fathers condition with Dr. Diggs this morning, she states his living will was very apparent, and they are seeking Hospice at this time. Our service will sign off, please reconsult if needed. Plan Family electing Hospice care which is reasonable at this time Our service will sign off, please reconsult if needed Pt has been seen and examined by myself and Dr. Ferro and this note is written on his behalf Lisa Wallace Feb 14, 2018 09:25
--- NOTE | 2018-02-14 14:02 | HHI.DS ---
Discharge Summary Admission Date Feb 13, 2018 at 10:20 Discharge Date: Feb 14, 2018 Admitting Diagnosis New acute ischemic stroke. (1) Respiratory failure, acute ICD Code: J96.00 - Acute respiratory failure, unspecified whether with hypoxia or hypercapnia Diagnosis: Principal Status: Acute (2) Acute ischemic stroke ICD Code: I63.9 - Cerebral infarction, unspecified Diagnosis: Principal Status: Acute Brief History The patient is a 82-year-old male with a past medical history significant for HTN, HLD, TIA, CHF, A. fib, CKD, hypothyroidism, sleep apnea, restless leg syndrome, and gout who was originally admitted to [facility] ([place], [place]) for workup of acute stroke. reportedly saw him on 01/29 around 1230 and later returned around 130 to find patient with difficulty speaking and right hemiaplasia. CT of the brain demonstrated hyperdense left M1 and M2 segments, not a candidate for TPA due to INR of 1.8. CTA showed demonstrated thromboembolism of M1 and M2 segments. CT perfusion demonstrated large acute left MCA infarct without surrounding ischemic penumbra. [facility] neurology contacted [place] neurologist per family request of aggressive treatment. Case was discussed with Dr. Baum and patient was transferred to [place] and underwent thrombectomy by Dr. Shelby as family was accepting of increased risk of hemorrhage. Procedure was complicated due to right groin bleeding and patient underwent emergent repair of right femoral artery by . Subsequently patient underwent CT of the head which showed an evolving left-sided stroke, MRI showed small bleed slightly larger as noted per neurologist. During his stay he also suffered agitation and delirium which gradually improved. On 02/08 T-max of 102 was recorded and patient had chest x- ray performed which was clear, lobato cultures done with no source of infection found. Patient was transferred to [place] inpatient rehabilitation on 02/10 after being cleared by both neurology and neurosurgery for anticoagulation with Coumadin also patient and faily aware of risk of bleeding. Patient was doing relatively well until yesterday. According to the nurse and patient's daughters at bedside since last night patient has had an altered mental status and was been lethargic and had some roving eye movements periodically and was moving his right leg back and forth. Says symptoms are similar to the initial presentation of stroke. This morning patient underwent a head CT which showed slight increase in hemorrhagic conversion in the left parietal lobe in addition to pre-existing areas of ischemic stroke with previous hemorrhage in the left temporoparietal region. Patient is altered mental status discussed with Dr Ramirez for stat transfer to ICU for close observation as patient is deteriorating. ABG reassuring however patient with more labour breathing. Patient is noted obtunded and deteriorating, I called Dr Zelaya from ICU as patient is obtunded and with labour breathing for evaluation EEG no seizure activity. INR was 1.2 this morning. Patient did undergo CT abdomen pelvis a few days ago for elevated LFTs which was unremarkable except for some gallbladder sludge. LFTs improved on todays labs. Patient is intubated by Dr Zelaya , appreciate CBC/BMP: 02/14/18 0645 02/14/18 0645 Significant Findings Laboratory Tests Test 02/13/18 12:55 02/13/18 13:05 02/13/18 13:30 02/14/18 06:45 Red Blood Count 3.00 MIL/MM3 (4.50-5.90) 2.96 MIL/MM3 (4.50-5.90) Hemoglobin 8.6 GM/DL (13.0-17.0) 8.5 GM/DL (13.0-17.0) Hematocrit 25.6 % (39.0-51.0) 25.3 % (39.0-51.0) Neutrophils (%) (Auto) 83.1 % (16.0-70.0) 79.4 % (16.0-70.0) Lymphocytes (%) (Auto) 8.5 % (9.0-44.0) Lymphocytes # (Auto) 0.4 TH/MM3 (1.0-4.8) 0.5 TH/MM3 (1.0-4.8) Blood Urea Nitrogen 23 MG/DL (7-18) 19 MG/DL (7-18) Random Glucose 112 MG/DL (74-106) Total Protein 6.2 GM/DL (6.4-8.2) 5.7 GM/DL (6.4-8.2) Albumin 2.3 GM/DL (3.4-5.0) 2.1 GM/DL (3.4-5.0) Calcium Level 8.2 MG/DL (8.5-10.1) 8.2 MG/DL (8.5-10.1) Alkaline Phosphatase 134 U/L (45-117) 121 U/L (45-117) Aspartate Amino Transf (AST/SGOT) 91 U/L (15-37) 63 U/L (15-37) Alanine Aminotransferase (ALT/SGPT) 102 U/L (12-78) Estimat Glomerular Filtration Rate 69 ML/MIN (>89) 61 ML/MIN (>89) Procalcitonin 0.09 ng/mL (0.00-0.08) Urine Turbidity HAZY (CLEAR) Urine Protein 30 mg/dL (NEG-TRACE) Urine Nitrite POS (NEG) Urine Leukocyte Esterase TRACE (NEG) Urine RBC 4 /hpf (0-3) Urine WBC 17 /hpf (0-5) Urine Bacteria OCC /hpf (NONE) Urine Mucus FEW /lpf (OCC) Blood Gas HCO3 30 mmol/L (22-26) Blood Gas Base Excess 5.5 mmol/L (-2-2) Arterial Blood pH 7.44 (7.380-7.420) Arterial Blood Partial Pressure CO2 44 mmHg (38-42) Arterial Blood Partial Pressure O2 205 mmHg (61-120) Blood Gas Hemoglobin 10.7 G/DL (12.0-16.0) Monocytes (%) (Auto) 9.2 % (0.0-8.0) Test 02/14/18 06:54 Prothrombin Time 13.9 SEC (9.8-11.6) Activated Partial Thromboplast Time 32.4 SEC (24.3-30.1) Fibrinogen 530 mg/dL (227-377) Imaging MRI - new acute right MCA stroke and evolving older left MCA stroke. Cerbral arteriogram - acute occlusion of the origin of the right MCA. PE at Discharge Deteriorating neurological status. Requiring mechanical ventilation. Transfer Summary After devastating bilateral MCA strokes the family has elected hospice care. He will be transferred to the [facility]. Hospital Course Hospital Course: 82-year-old male with a past medical history significant for HTN, HLD, TIA, CHF , A. fib, CKD, hypothyroidism, sleep apnea, restless leg syndrome, and gout who was originally admitted to [facility] ([place], [place]) for workup of acute stroke. reportedly saw him on 01/29 around 1230 and later returned around 130 to find patient with difficulty speaking and right hemiaplasia. CT of the brain demonstrated hyperdense left M1 and M2 segments, not a candidate for TPA due to INR of 1.8. CTA showed demonstrated thromboembolism of M1 and M2 segments. CT perfusion demonstrated large acute left MCA infarct without surrounding ischemic penumbra. [facility] neurology contacted [place] neurologist per family request of aggressive treatment. Case was discussed with Dr. Baum and patient was transferred to [place] and underwent thrombectomy by Dr. Shelby as family was accepting of increased risk of hemorrhage. Procedure was complicated due to right groin bleeding and patient underwent emergent repair of right femoral artery by . Subsequently patient underwent CT of the head which showed an evolving left- sided stroke, MRI showed small bleed slightly larger as noted per neurologist. During his stay he also suffered agitation and delirium which gradually improved. On 02/08 T-max of 102 was recorded and patient had chest x-ray performed which was clear, lobato cultures done with no source of infection found. Patient was transferred to [facility] rehabilitation on 02/10 after being cleared by both neurology and neurosurgery for anticoagulation with Coumadin. Patient was doing relatively well until yesterday. According to patient's daughter since last night patient has had an altered mental status and was been lethargic and had some roving eye movements periodically. This morning patient underwent a head CT which showed slight increase in hemorrhagic conversion in the left parietal lobe in addition to pre-existing areas of ischemic stroke with previous hemorrhage in the left temporoparietal region. As patient was obtunded he was transferred to the ICU by Dr. Green. Critical care consult was requested by Dr. Green in view of worsening mental status. I evaluated the patient immediately on being notified by Dr. Green. At the time of my evaluation patient was extremely lethargic and stuporous, nonverbal having snoring respirations with occasional coughing and inability to clear secretions. EEG done following patient's arrival to ICU did not reveal seizure activity. I proceeded with intubation for airway protection and patient was placed on mechanical ventilation. He did have a temperature of 100.2 axillary hence pancultures were ordered and empiric antibiotic initiated. MRI brain was ordered to evaluate for any new ischemic event. History was obtained by reviewing records and discussion with patient's daughter as well as with Dr. Green. INR was 1.2 this morning. Patient did undergo CT abdomen pelvis a few days ago for elevated LFTs which was unremarkable except for some gallbladder sludge. Subjective: 02/14: MRI/MRA with massive right MCA infarct. now extensor posturing on the left. long discussion with the family regarding prognosis: bihemispheric large vascular distribution strokes in 82yM has very poor prognosis, combined with the ongoing problem of intracerebral hemorrhaging when INR > 2 and large distribution ischemic strokes with INR < 2, makes going forward a high likelihood of no meaningful recovery and only further comorbidities. family is asking about hospice and electing palliation Pt Condition on Discharge: Deteriorating Discharge Disposition: Hospice/Med Facility Discharge Instructions DIET: Follow Instructions for: Pureed Diet Activities you can perform: Non Weight Bearing Yao Lopez MD Feb 14, 2018 14:02
--- NOTE | 2018-02-14 16:57 | EKG ---
Date Performed: 02/13/2018 Time Performed: 16:32:33 PTAGE: 82 years EKG: ATRIAL FIBRILLATION VOLTAGE CRITERIA FOR LVH ABNORMAL ECG Since the PREVIOUS TRACING , no significant change noted PREVIOUS TRACIN01/31/2018 00.31 DOCTOR: Pedro Luis Clark Interpretating Date/Time 02/14/2018 16:52:50
== END 2018-02-14 16:12 | disposition hospice, inpatient (51) | DRG 64 ==
LOC: N03A 10:20
PROVIDERS: ADMIT Internal Medicine Critical Care Medicine; ATTEND Internal Medicine Critical Care Medicine
PROC: 5A1935Z Respiratory Ventilation, Less than 24 Consecutive Hours (ICD-10-PCS; principal; 2018-02-13)
PROC: 0BH17EZ Insertion of Endotracheal Airway into Trachea, Via Natural or Artificial Opening (ICD-10-PCS; 2018-02-13)
DX: I61.8 Other nontraumatic intracerebral hemorrhage (principal); G93.40 Encephalopathy, unspecified; N18.4 Chronic kidney disease, stage 4 (severe); J44.9 Chronic obstructive pulmonary disease, unspecified; J96.01 Acute respiratory failure with hypoxia; I48.2 Chronic atrial fibrillation; J96.02 Acute respiratory failure with hypercapnia; Z99.81 Dependence on supplemental oxygen; I13.0 Hypertensive heart and chronic kidney disease with heart failure and stage 1 through stage 4 chronic kidney disease, or unspecified chronic kidney disease; I50.32 Chronic diastolic (congestive) heart failure; G25.81 Restless legs syndrome; I16.1 Hypertensive emergency; I60.9 Nontraumatic subarachnoid hemorrhage, unspecified; E03.9 Hypothyroidism, unspecified; E78.5 Hyperlipidemia, unspecified; Z86.73 Personal history of transient ischemic attack (TIA), and cerebral infarction without residual deficits; Z87.891 Personal history of nicotine dependence; Z82.49 Family history of ischemic heart disease and other diseases of the circulatory system; Z82.3 Family history of stroke; Z51.5 Encounter for palliative care; H91.90 Unspecified hearing loss, unspecified ear; G47.30 Sleep apnea, unspecified; M10.9 Gout, unspecified; K42.9 Umbilical hernia without obstruction or gangrene; K82.8 Other specified diseases of gallbladder
CPT/HCPCS: 36600; 70544; 70551; 71045; 80053; 81001; 82805; 82977; 83605; 83690; 84145; 85025; 85384; 85610; 85730; 87040; 87070; 87077; 87086; 87186; 87205; 93005; 94002; 94003; 95819; C9113; J1953; J2543; J3010; J7030